=== PATIENT | female | born 1960 | race Caucasian/White ===

== ENCOUNTER → 2016-09-26 | Outpatient (CLI) | payer OTHER | LOC: M HL 10:46 | PROVIDERS: ATTEND Nurse Practitioner | DX: E11.8 Type 2 diabetes mellitus with unspecified complications (principal); K21.9 Gastro-esophageal reflux disease without esophagitis; N28.9 Disorder of kidney and ureter, unspecified; Z90.5 Acquired absence of kidney ==

== ENCOUNTER → 2016-10-09 | Outpatient (CLI) | payer OTHER | LOC: M RAD 14:19 | PROVIDERS: ATTEND Nurse Practitioner | DX: E27.9 Disorder of adrenal gland, unspecified (principal); Z90.5 Acquired absence of kidney ==

== ENCOUNTER → 2016-11-09 | Outpatient (REF) | payer OTHER ==
[2016-11-09 17:42] LABS: ALBUMIN 3.3 GM/DL (3.2-5.2); ALBUMIN/GLOBULIN RATIO 0.89 (1.00-1.93); BILIRUBIN,TOTAL 0.5 MG/DL (0.2-1.0); CALCIUM LEVEL 8.8 MG/DL (8.5-10.1); CREATININE FOR GFR 1.49 MG/DL (0.55-1.02); GLOMERULAR FILTRATION RATE 38.8 (>51); POTASSIUM SERUM 4.8 MEQ/L (3.5-5.1)
== END ==
LOC: M SFHCCLAY 11:13
PROVIDERS: ATTEND Nurse Practitioner
DX: E11.8 Type 2 diabetes mellitus with unspecified complications (principal)

== ENCOUNTER → 2016-12-26 | Outpatient (CLI) | payer OTHER ==
[~2016-12-26] MED LIST: CONRAY-43 43% 50ML VIAL (Q9960) As Ordered ONE; ISOVUE-M 300 61% 15ML VIAL (Q9967) As Ordered ONE; LIDOCAINE 1% MDV 20ML VIAL As Ordered ONE; TRIAMCINOLONE ACETONIDE SUSP 40 MG/ML VIAL (J3301) As Ordered ONE
--- NOTE | 2016-12-26 14:30 | REP ---
INTRA-ARTICULAR KENALOG AND LIDOCAINE INJECTION RIGHT HIP: HISTORY: Right hip pain. PROCEDURE: The patient was interviewed and informed consent was obtained. The patient was placed supine on the fluoroscopy table and the right groin pulse was palpated and marked. The patient safety time-out was articulated and agreed to. Using fluoroscopic guidance, aseptic precautions and 1% lidocaine for local anesthetic, a 22 gauge 3-1/2-inch needle was advanced into the right hip articulation without technical difficulty. Intra-articular needle position was confirmed by the injection of 0.5 mL of Conray 43. This is followed by the injection of 9 mL of 1% lidocaine mixed with 1 mL of Kenalog, 40 mg. The patient tolerated the injection procedure well. 50 seconds of fluoroscopy time was utilized. IMPRESSION: Intra-articular Kenalog and lidocaine injection right hip. Signed by Ralph Sears MD 12/26/2016 08:57 P
== END ==
LOC: M RADPRO 09:43
PROVIDERS: ATTEND Physician Assistant
DX: M25.551 Pain in right hip (principal)

== ENCOUNTER 2017-01-31 15:24 | Emergency (ER) | payer OTHER ==
[~2017-01-31] VITALS: Ht 170.2 cm; Wt 112.9 kg
[2017-01-31] MEDS ORDERED: JANU100T PO (15:40)
[2017-01-31] MEDS ORDERED: LISI20TA3 PO (15:40)
[2017-01-31] MEDS ORDERED: PRIL20CA9 PO (15:40)
[2017-01-31] MEDS ORDERED: ASPI81TA85 PO (15:40)
[2017-01-31] MEDS ORDERED: LEVO100T5 PO (15:40)
[2017-01-31] MEDS ORDERED: ASPIRIN 81 MG CHEW TABLET PO ONE (16:15)
[2017-01-31] MEDS ORDERED: NITROGLYCERIN 0.4 MG SUBL TABLET SL PRN (16:15)
[2017-01-31 16:26] LABS: BASO % 0.4 % (0.0-1.0); EOS # 0.1 K/mm3 (0.0-0.50); EOS % 1.2 % (0.0-3.0); LARGE UNSTAINED CELL # 0.2 K/mm3 (0.0-0.4); LARGE UNSTAINED CELL % 1.8 % (0.0-4.0); LYMPH # 2.6 K/mm3 (1.5-4.5); MEAN CORPUSCULAR HEMOGLOBIN 32.9 pg (27.0-33.0); MEAN CORPUSCULAR HGB CONC 33.1 g/dl (32.0-36.5); MEAN CORPUSCULAR VOLUME 99.3 fl (80.0-96.0); MONO # 0.6 K/mm3 (0.0-0.8); MONO % 6.1 % (0.0-5.0); NEUTROPHILS # 6.7 K/mm3 (1.8-7.7); NEUTROPHILS % 65.4 % (36.0-66.0); PLATELET COUNT, AUTOMATED 303 k/mm3 (150-450); RED CELL DISTRIBUTION WIDTH 12.5 % (11.5-14.5); WHITE BLOOD COUNT 10.2 K/mm3 (4.0-10.0)
[2017-01-31 16:39] LABS: ALBUMIN 3.3 GM/DL (3.2-5.2); ALBUMIN/GLOBULIN RATIO 0.89 (1.00-1.93); ALKALINE PHOSPHATASE 116 U/L (45-117); ALT/SGPT 14 U/L (12-78); ANION GAP 7 MEQ/L (8-16); AST/SGOT 6 U/L (15-37); BILIRUBIN,DIRECT < 0.1 MG/DL (0.0-0.2); BILIRUBIN,TOTAL 0.3 MG/DL (0.2-1.0); BLOOD UREA NITROGEN 31 MG/DL (7-18); CALCIUM LEVEL 8.2 MG/DL (8.5-10.1); CARBON DIOXIDE LEVEL 24 MEQ/L (21-32); CHLORIDE LEVEL 108 MEQ/L (98-107); CREATININE FOR GFR 1.47 MG/DL (0.55-1.02); FREE T4 1.35 NG/DL (0.76-1.46); GLOMERULAR FILTRATION RATE 39.3 (>51); GLUCOSE, FASTING 100 MG/DL (70-105); POTASSIUM SERUM 4.5 MEQ/L (3.5-5.1); SODIUM LEVEL 139 MEQ/L (136-145)
--- NOTE | 2017-01-31 18:08 | REP ---
CHEST, TWO VIEWS: REASON: Chest pain. COMPARISON: 09/09/2016. FINDINGS: The superior mediastinal structures are midline. The cardiac silhouette is unremarkable in size, shape, and position. The diaphragmatic surfaces of the lungs are regular, and the costophrenic angles are clear. The pulmonary silver are clear. The imaged osseous structures are intact. No significant change from the prior exam. IMPRESSION: There is no acute cardiopulmonary disease. Signed by Donny Gillette DO 02/01/2017 11:58 A
[2017-01-31] MEDS ORDERED: GI COCKTAIL 50ML BTL(HYOSCYAMINE/MAALOX/LIDOCAINE VISCOUS)(1:3:1) PO ONE (19:30)
[2017-01-31] MEDS ORDERED: ACETAMINOPHEN 325 MG TAB PO ONE (20:30)
[2017-01-31 23:21] VITALS: BP 147/65
--- NOTE | 2017-02-01 09:35 | ECGEPIP ---
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
--- NOTE | 2017-02-01 09:42 | ECGEPIP ---
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
== END 2017-01-31 23:25 | disposition home or self-care (01) ==
LOC: M ED 17:12
DX: N28.9 Disorder of kidney and ureter, unspecified (principal); R94.31 Abnormal electrocardiogram [ECG] [EKG]; I10 Essential (primary) hypertension; E11.9 Type 2 diabetes mellitus without complications; E03.9 Hypothyroidism, unspecified; F17.210 Nicotine dependence, cigarettes, uncomplicated; M16.0 Bilateral primary osteoarthritis of hip; Z88.5 Allergy status to narcotic agent; Z79.899 Other long term (current) drug therapy; Z79.82 Long term (current) use of aspirin; Z90.6 Acquired absence of other parts of urinary tract

== ENCOUNTER → 2017-05-21 | Outpatient (REF) | payer OTHER ==
[~2017-05-21] MED LIST changes: +ASPI81TA85 PO; -CONRAY-43 43% 50ML VIAL (Q9960) As Ordered ONE; -ISOVUE-M 300 61% 15ML VIAL (Q9967) As Ordered ONE; +JANU100T PO; +LEVO100T5 PO; -LIDOCAINE 1% MDV 20ML VIAL As Ordered ONE; +LISI20TA3 PO; +PRIL20CA9 PO; -TRIAMCINOLONE ACETONIDE SUSP 40 MG/ML VIAL (J3301) As Ordered ONE
[2017-05-21 12:50] LABS: ALBUMIN 3.4 GM/DL (3.2-5.2); ALBUMIN/GLOBULIN RATIO 0.94 (1.00-1.93); BILIRUBIN,TOTAL 0.4 MG/DL (0.2-1.0); CALCIUM LEVEL 8.8 MG/DL (8.5-10.1); CREATININE FOR GFR 1.74 MG/DL (0.55-1.02); GLOMERULAR FILTRATION RATE 32.3 (>51); POTASSIUM SERUM 5.1 MEQ/L (3.5-5.1)
== END ==
LOC: M SFHCCLAY 09:50
PROVIDERS: ATTEND Nurse Practitioner
DX: E11.8 Type 2 diabetes mellitus with unspecified complications (principal)

== ENCOUNTER → 2017-05-30 | Outpatient (REF) | payer OTHER | LOC: M SFHCCLAY 13:35 | PROVIDERS: ATTEND Nurse Practitioner | DX: N30.00 Acute cystitis without hematuria (principal) ==

== ENCOUNTER → 2017-07-17 | Outpatient (REF) | payer OTHER | LOC: M SFHCCLAY 10:41 | PROVIDERS: ATTEND Nurse Practitioner | DX: N30.90 Cystitis, unspecified without hematuria (principal); R05 Cough ==

== ENCOUNTER → 2017-08-28 | Outpatient (CLI) | payer OTHER ==
[~2017-08-28] MED LIST changes: +ATOR1TAB21 PO; +BUPR75TA5 PO; +CLIN150C14 PO; +VITA100066 PO
[2017-08-28 13:07] LABS: ALBUMIN 3.3 GM/DL (3.2-5.2); ALBUMIN/GLOBULIN RATIO 0.8 (1.00-1.93); BILIRUBIN,TOTAL 0.8 MG/DL (0.2-1.0); CALCIUM LEVEL 8.8 MG/DL (8.5-10.1); CREATININE FOR GFR 1.77 MG/DL (0.55-1.02); GLOMERULAR FILTRATION RATE 31.7 (>51); POTASSIUM SERUM 4.5 MEQ/L (3.5-5.1); TOTAL PROTEIN 7.4 GM/DL (6.4-8.2)
== END ==
LOC: M LAB 11:59
PROVIDERS: ATTEND Nurse Practitioner
DX: N30.00 Acute cystitis without hematuria (principal); E78.6 Lipoprotein deficiency; E03.9 Hypothyroidism, unspecified

== ENCOUNTER 2017-08-31 13:10 | Emergency (ER) | payer OTHER ==
[~2017-08-31] VITALS: Ht 170.2 cm; Wt 109.1 kg
[2017-08-31 13:10] VITALS: BP 123/80
[~2017-08-31 13:10] MED LIST changes: -ATOR1TAB21 PO; -BUPR75TA5 PO; -CLIN150C14 PO; -VITA100066 PO
[2017-08-31] MEDS ORDERED: ATOR1TAB21 PO (13:22)
[2017-08-31] MEDS ORDERED: VITA100066 PO (13:22)
[2017-08-31] MEDS ORDERED: BUPR75TA5 PO (13:22)
[2017-08-31] MEDS ORDERED: CLIN150C14 PO (14:42)
[2017-08-31] MEDS ORDERED: IBUPROFEN 800 MG TAB PO ONE (14:45)
[2017-08-31] MEDS ORDERED: CLINDAMYCIN 150 MG CAP PO ONE (14:45)
== END 2017-08-31 14:58 | disposition home or self-care (01) ==
LOC: M ED 13:10
DX: K08.89 Other specified disorders of teeth and supporting structures (principal); K04.7 Periapical abscess without sinus; S02.5XXA Fracture of tooth (traumatic), initial encounter for closed fracture; X58.XXXA Exposure to other specified factors, initial encounter; Y92.9 Unspecified place or not applicable; Y93.9 Activity, unspecified; Y99.9 Unspecified external cause status; F17.200 Nicotine dependence, unspecified, uncomplicated; E78.00 Pure hypercholesterolemia, unspecified; I10 Essential (primary) hypertension; K21.9 Gastro-esophageal reflux disease without esophagitis; E11.9 Type 2 diabetes mellitus without complications; E03.9 Hypothyroidism, unspecified; Z79.82 Long term (current) use of aspirin; Z79.899 Other long term (current) drug therapy; Z88.5 Allergy status to narcotic agent

== ENCOUNTER 2017-09-21 21:19 | Emergency (ER) | payer OTHER ==
[2017-09-22] MEDS: AMOXICILLIN 500 MG CAP PO (01:15)
== END 2017-09-22 02:00 | disposition home or self-care (01) ==
LOC: M ED 09-22 02:00
DX: H66.93 Otitis media, unspecified, bilateral (principal); J06.9 Acute upper respiratory infection, unspecified; I25.10 Atherosclerotic heart disease of native coronary artery without angina pectoris; E11.9 Type 2 diabetes mellitus without complications; I10 Essential (primary) hypertension; E03.9 Hypothyroidism, unspecified; K21.9 Gastro-esophageal reflux disease without esophagitis; N18.9 Chronic kidney disease, unspecified; F17.200 Nicotine dependence, unspecified, uncomplicated; Z79.82 Long term (current) use of aspirin; Z79.899 Other long term (current) drug therapy; Z88.5 Allergy status to narcotic agent
CPT/HCPCS: 99283

== ENCOUNTER → 2017-09-24 | Outpatient (REF) | payer OTHER | LOC: M LAB REF 17:35 | DX: E03.9 Hypothyroidism, unspecified (principal) | CPT/HCPCS: 84443 ==

== ENCOUNTER → 2017-11-04 | Day surgery (SDC) | payer OTHER ==
[~2017-11-04] MED LIST changes: -ASPI81TA85 PO; -JANU100T PO; -LEVO100T5 PO; +LIDOCAINE 2% INJ 100 MG/5 ML SDV (FOR ANES.) As Ordered; -LISI20TA3 PO; -PRIL20CA9 PO; +PROPOFOL 200 MG/20 ML VIAL As Ordered
[2017-11-04] MEDS: NS 1,000 ML IV (07:25)
== END | disposition home or self-care (01) ==
LOC: M OPP 07:03
DX: Z12.11 Encounter for screening for malignant neoplasm of colon (principal); D12.3 Benign neoplasm of transverse colon; D12.5 Benign neoplasm of sigmoid colon; K62.1 Rectal polyp; K64.8 Other hemorrhoids; K63.89 Other specified diseases of intestine; D17.5 Benign lipomatous neoplasm of intra-abdominal organs; K56.690 Other partial intestinal obstruction; K64.4 Residual hemorrhoidal skin tags; I12.9 Hypertensive chronic kidney disease with stage 1 through stage 4 chronic kidney disease, or unspecified chronic kidney disease; E78.5 Hyperlipidemia, unspecified; E11.9 Type 2 diabetes mellitus without complications; E03.9 Hypothyroidism, unspecified; R12 Heartburn; K21.9 Gastro-esophageal reflux disease without esophagitis; M19.90 Unspecified osteoarthritis, unspecified site; G62.9 Polyneuropathy, unspecified; Z78.0 Asymptomatic menopausal state; N18.4 Chronic kidney disease, stage 4 (severe); Z85.528 Personal history of other malignant neoplasm of kidney; Z90.5 Acquired absence of kidney; F17.210 Nicotine dependence, cigarettes, uncomplicated; Z88.5 Allergy status to narcotic agent; Z79.899 Other long term (current) drug therapy; Z79.82 Long term (current) use of aspirin; Z79.84 Long term (current) use of oral hypoglycemic drugs; Z80.8 Family history of malignant neoplasm of other organs or systems
CPT/HCPCS: 45385

== ENCOUNTER → 2017-11-05 | Outpatient (CLI) | payer OTHER ==
[2017-11-05 10:22] LABS: BASO % 0.4 % (0.0-1.0); EOS # 0.1 10^3/uL (0.0-0.50); EOS % 0.9 % (0.0-3.0); HEMATOCRIT 39.3 % (36.0-47.0); IMMATURE GRANULOCYTE % 0.4 % (0-3.0); LYMPH # 2.3 10^3/uL (1.5-4.5); LYMPH % 21.2 % (24.0-44.0); MEAN CORPUSCULAR HEMOGLOBIN 31.9 pg (27.0-33.0); MEAN CORPUSCULAR HGB CONC 33.1 g/dl (32.0-36.5); MEAN CORPUSCULAR VOLUME 96.3 fl (80.0-96.0); MONO # 0.8 10^3/uL (0.0-0.8); MONO % 7.8 % (0.0-5.0); NEUTROPHILS # 7.5 10^3/uL (1.8-7.7); NEUTROPHILS % 69.3 % (36.0-66.0); PLATELET COUNT, AUTOMATED 264 10^3/uL (150-450); RED BLOOD COUNT 4.08 10^6/uL (4.00-5.40); RED CELL DISTRIBUTION WIDTH 12.4 % (11.5-14.5); WHITE BLOOD COUNT 10.8 10^3/uL (4.0-10.0)
[2017-11-05 10:32] LABS: INR 1.01; PROTHROMBIN TIME 13.4 SECONDS (12.4-14.5)
[2017-11-05 10:33] LABS: PARTIAL THROMBOPLASTIN TIME 28.7 SECONDS (26.8-37.9)
== END ==
LOC: M LAB 09:55
DX: K62.5 Hemorrhage of anus and rectum (principal)
CPT/HCPCS: 85610

== ENCOUNTER → 2017-11-06 | Outpatient (CLI) | payer OTHER ==
[2017-11-06 09:16] LABS: HEMATOCRIT 39.3 % (36.0-47.0); HEMOGLOBIN 12.9 g/dl (12.0-16.0); MEAN CORPUSCULAR HEMOGLOBIN 32.1 pg (27.0-33.0); MEAN CORPUSCULAR HGB CONC 32.8 g/dl (32.0-36.5); MEAN CORPUSCULAR VOLUME 97.8 fl (80.0-96.0); PLATELET COUNT, AUTOMATED 262 10^3/uL (150-450); RED BLOOD COUNT 4.02 10^6/uL (4.00-5.40); RED CELL DISTRIBUTION WIDTH 12.5 % (11.5-14.5); WHITE BLOOD COUNT 10.3 10^3/uL (4.0-10.0)
== END ==
LOC: M LAB 08:46
DX: K62.5 Hemorrhage of anus and rectum (principal)
CPT/HCPCS: 85027

== ENCOUNTER 2017-11-28 22:01 | Emergency (ER) | payer OTHER ==
[2017-11-28] MEDS: NS 1,000 ML IV (22:57)
[2017-11-28] MEDS: GI COCKTAIL 50ML BTL(HYOSCYAMINE/MAALOX/LIDOCAINE VISCOUS)(1:3:1) PO (23:15)
[2017-11-28] MEDS: ASPIRIN 81 MG CHEW TABLET PO (23:15)
[2017-11-28 23:25] LABS: BASO % 0.4 % (0.0-1.0); EOS # 0.2 10^3/uL (0.0-0.50); EOS % 1.7 % (0.0-3.0); HEMATOCRIT 40.5 % (36.0-47.0); HEMOGLOBIN 13.2 g/dl (12.0-16.0); IMMATURE GRANULOCYTE % 0.4 % (0-3.0); LYMPH # 2.8 10^3/uL (1.5-4.5); LYMPH % 25.9 % (24.0-44.0); MEAN CORPUSCULAR HEMOGLOBIN 32.3 pg (27.0-33.0); MEAN CORPUSCULAR HGB CONC 32.6 g/dl (32.0-36.5); MONO # 0.8 10^3/uL (0.0-0.8); MONO % 7.4 % (0.0-5.0); NEUTROPHILS # 6.9 10^3/uL (1.8-7.7); NEUTROPHILS % 64.2 % (36.0-66.0); PLATELET COUNT, AUTOMATED 300 10^3/uL (150-450); RED BLOOD COUNT 4.09 10^6/uL (4.00-5.40); RED CELL DISTRIBUTION WIDTH 12.4 % (11.5-14.5); WHITE BLOOD COUNT 10.7 10^3/uL (4.0-10.0)
[2017-11-28 23:35] LABS: INR 0.96; PROTHROMBIN TIME 12.8 SECONDS (12.4-14.5)
[2017-11-28 23:41] LABS: ALBUMIN 3.4 GM/DL (3.2-5.2); ALBUMIN/GLOBULIN RATIO 0.83 (1.00-1.93); ALKALINE PHOSPHATASE 116 U/L (45-117); ALT/SGPT 23 U/L (12-78); ANION GAP 8 MEQ/L (8-16); AST/SGOT 14 U/L (7-37); BILIRUBIN,DIRECT < 0.1 MG/DL (0.0-0.2); BILIRUBIN,TOTAL 0.3 MG/DL (0.2-1.0); BLOOD UREA NITROGEN 36 MG/DL (7-18); CALCIUM LEVEL 8.5 MG/DL (8.5-10.1); CARBON DIOXIDE LEVEL 24 MEQ/L (21-32); CHLORIDE LEVEL 108 MEQ/L (98-107); CK-MB VALUE MASS 1.2 NG/ML (0.0-3.6); CPK CREATINE PHOSPHOKINASE 67 U/L (26-192); CREATININE FOR GFR 1.71 MG/DL (0.55-1.30); GLUCOSE, FASTING 245 MG/DL (70-100); LIPASE 251 U/L (73-393); MB/CK RELATIVE INDEX 1.79 (< OR =4); SODIUM LEVEL 140 MEQ/L (136-145); TOTAL PROTEIN 7.5 GM/DL (6.4-8.2); TROPONIN I < 0.02 NG/ML (< 0.10)
[2017-11-29] MEDS: NITROGLYCERIN 0.4 MG SUBL TABLET SL (00:15)
[2017-11-29] MEDS ORDERED: NITROGLYCERIN 0.4 MG SUBL TABLET SL (02:15)
[2017-11-29 03:50] LABS: CPK CREATINE PHOSPHOKINASE 51 U/L (26-192); TROPONIN I < 0.02 NG/ML (< 0.10)
[2017-11-29 03:51] LABS: CK-MB VALUE MASS 1.2 NG/ML (0.0-3.6); MB/CK RELATIVE INDEX 2.35 (< OR =4)
== END 2017-11-29 04:32 | disposition home or self-care (01) ==
LOC: M ED 11-29 04:32
DX: R07.9 Chest pain, unspecified (principal); E11.9 Type 2 diabetes mellitus without complications; I10 Essential (primary) hypertension; E78.5 Hyperlipidemia, unspecified; F17.200 Nicotine dependence, unspecified, uncomplicated; Z82.49 Family history of ischemic heart disease and other diseases of the circulatory system; Z79.82 Long term (current) use of aspirin; Z79.899 Other long term (current) drug therapy; Z88.5 Allergy status to narcotic agent
CPT/HCPCS: 71045

== ENCOUNTER 2017-12-07 13:38 | Emergency (ER) | payer OTHER ==
[2017-12-07] MEDS: ACETAMINOPHEN TAB 650MG DOSE (2X325MG) PO (15:34)
[2017-12-07 15:36] LABS: BASO # 0.1 10^3/uL (0.0-0.2); BASO % 0.5 % (0.0-1.0); EOS # 0.1 10^3/uL (0.0-0.50); EOS % 1.2 % (0.0-3.0); HEMATOCRIT 41.2 % (36.0-47.0); HEMOGLOBIN 13.5 g/dl (12.0-16.0); IMMATURE GRANULOCYTE % 0.5 % (0-3.0); LYMPH # 2.7 10^3/uL (1.5-4.5); LYMPH % 24.6 % (24.0-44.0); MEAN CORPUSCULAR HEMOGLOBIN 31.9 pg (27.0-33.0); MEAN CORPUSCULAR HGB CONC 32.8 g/dl (32.0-36.5); MEAN CORPUSCULAR VOLUME 97.4 fl (80.0-96.0); MONO # 0.8 10^3/uL (0.0-0.8); MONO % 6.9 % (0.0-5.0); NEUTROPHILS # 7.2 10^3/uL (1.8-7.7); NEUTROPHILS % 66.3 % (36.0-66.0); PLATELET COUNT, AUTOMATED 266 10^3/uL (150-450); RED BLOOD COUNT 4.23 10^6/uL (4.00-5.40); RED CELL DISTRIBUTION WIDTH 12.5 % (11.5-14.5); WHITE BLOOD COUNT 10.8 10^3/uL (4.0-10.0)
[2017-12-07 15:43] LABS: KETONE, URINE AUTO RFX NEGATIVE (NEGATIVE); LEUKOCYTE ESTERASE UR AUTO RFX NEGATIVE (NEGATIVE); MUCUS, URINE RFX SMALL (NEGATIVE); NITRITE, URINE AUTO RFX NEGATIVE (NEGATIVE); RBC, URINE AUTO RFX 51 /HPF (0-3); SPECIFIC GRAVITY UR AUTO RFX 1.013 (1.002-1.035); SQUAM EPITHELIAL CELL UR AURFX 2 /HPF (0-6); WBC, URINE AUTO RFX 2 /HPF (0-3)
[2017-12-07 15:48] LABS: INR 0.99; PROTHROMBIN TIME 13.2 SECONDS (12.4-14.5)
[2017-12-07 15:49] LABS: PARTIAL THROMBOPLASTIN TIME 26.7 SECONDS (26.8-37.9)
[2017-12-07 15:58] LABS: ANION GAP 7 MEQ/L (8-16); BLOOD UREA NITROGEN 23 MG/DL (7-18); CALCIUM LEVEL 8.5 MG/DL (8.5-10.1); CARBON DIOXIDE LEVEL 28 MEQ/L (21-32); CHLORIDE LEVEL 107 MEQ/L (98-107); CREATININE FOR GFR 1.43 MG/DL (0.55-1.30); GLOMERULAR FILTRATION RATE 40.6 (>51); GLUCOSE, FASTING 155 MG/DL (70-100); POTASSIUM SERUM 4.2 MEQ/L (3.5-5.1); SODIUM LEVEL 142 MEQ/L (136-145)
== END 2017-12-07 18:30 | disposition home or self-care (01) ==
LOC: M ED 13:38
DX: N85.00 Endometrial hyperplasia, unspecified (principal); N95.0 Postmenopausal bleeding; E11.9 Type 2 diabetes mellitus without complications; I12.9 Hypertensive chronic kidney disease with stage 1 through stage 4 chronic kidney disease, or unspecified chronic kidney disease; E78.00 Pure hypercholesterolemia, unspecified; N18.4 Chronic kidney disease, stage 4 (severe); F17.210 Nicotine dependence, cigarettes, uncomplicated; Z88.5 Allergy status to narcotic agent; Z79.82 Long term (current) use of aspirin; Z79.899 Other long term (current) drug therapy; Z79.890 Hormone replacement therapy
CPT/HCPCS: 76856

== ENCOUNTER → 2017-12-12 | Outpatient (CLI) | payer OTHER ==
[2017-12-12 13:57] LABS: FREE T4 1.42 NG/DL (0.76-1.46); THYROID STIMULATING HORMONE 0.751 uIU/ML (0.358-3.740)
== END ==
LOC: M LAB 11:34
DX: E03.9 Hypothyroidism, unspecified (principal)
CPT/HCPCS: 84443

== ENCOUNTER → 2017-12-13 | Outpatient (CLI) | payer OTHER ==
[2017-12-13 09:23] LABS: HEMATOCRIT 41.8 % (36.0-47.0); HEMOGLOBIN 13.6 g/dl (12.0-16.0); MEAN CORPUSCULAR HEMOGLOBIN 31.8 pg (27.0-33.0); MEAN CORPUSCULAR HGB CONC 32.5 g/dl (32.0-36.5); MEAN CORPUSCULAR VOLUME 97.7 fl (80.0-96.0); PLATELET COUNT, AUTOMATED 278 10^3/uL (150-450); RED BLOOD COUNT 4.28 10^6/uL (4.00-5.40); RED CELL DISTRIBUTION WIDTH 12.5 % (11.5-14.5); WHITE BLOOD COUNT 9.5 10^3/uL (4.0-10.0)
[2017-12-13 10:05] LABS: ESTIMATED AVERAGE GLUCOSE 217 MG/DL (60-110); HEMOGLOBIN A1c 9.2 %
== END ==
LOC: M LAB 08:15
DX: E11.618 Type 2 diabetes mellitus with other diabetic arthropathy (principal)
CPT/HCPCS: 83036

== ENCOUNTER → 2018-01-03 | Outpatient (CLI) | payer OTHER ==
[2018-01-03 15:15] LABS: ALBUMIN 3.4 GM/DL (3.2-5.2); ALBUMIN/GLOBULIN RATIO 0.89 (1.00-1.93); ALKALINE PHOSPHATASE 122 U/L (45-117); ALT/SGPT 18 U/L (12-78); ANION GAP 6 MEQ/L (8-16); AST/SGOT 11 U/L (7-37); BILIRUBIN,TOTAL 0.6 MG/DL (0.2-1.0); BLOOD UREA NITROGEN 30 MG/DL (7-18); CALCIUM LEVEL 8.7 MG/DL (8.5-10.1); CARBON DIOXIDE LEVEL 27 MEQ/L (21-32); CHLORIDE LEVEL 108 MEQ/L (98-107); CHOLESTEROL LEVEL 134 MG/DL (<200); CHOLESTEROL RISK RATIO 3.722 (<5); CREATININE FOR GFR 1.51 MG/DL (0.55-1.30); GLOMERULAR FILTRATION RATE 38.1 (>51); GLUCOSE, FASTING 218 MG/DL (70-100); HDL CHOLESTEROL 36 MG/DL (>40); LDL CHOLESTEROL 34.4 MG/DL (<100); NON-HDL-C 98 MG/DL; POTASSIUM SERUM 4.8 MEQ/L (3.5-5.1); SODIUM LEVEL 141 MEQ/L (136-145); TOTAL PROTEIN 7.2 GM/DL (6.4-8.2); TRIGLYCERIDES LEVEL 318 MG/DL (<150)
[2018-01-03 16:13] LABS: ESTIMATED AVERAGE GLUCOSE 220 MG/DL (60-110); HEMOGLOBIN A1c 9.3 %
== END ==
LOC: M LAB 14:19
DX: E11.8 Type 2 diabetes mellitus with unspecified complications (principal)
CPT/HCPCS: 80053

== ENCOUNTER → 2018-02-24 | Outpatient (CLI) | payer OTHER | LOC: M RAD 09:28 | DX: Z12.31 Encounter for screening mammogram for malignant neoplasm of breast (principal) | CPT/HCPCS: 77067 ==

== ENCOUNTER 2018-03-17 10:34 | Outpatient (RCR) | payer OTHER | END 2018-03-22 | LOC: M PT 10:34 | DX: Z51.89 Encounter for other specified aftercare (principal); M25.551 Pain in right hip; M25.552 Pain in left hip | CPT/HCPCS: 97010 ==

== ENCOUNTER → 2018-03-20 | Outpatient (REF) | payer OTHER ==
[2018-03-21 11:35] LABS: BASO # 0.1 10^3/uL (0.0-0.2); BASO % 0.6 % (0.0-1.0); EOS # 0.2 10^3/uL (0.0-0.50); EOS % 1.5 % (0.0-3.0); HEMATOCRIT 41.1 % (36.0-47.0); HEMOGLOBIN 13.3 g/dl (12.0-15.5); IMMATURE GRANULOCYTE % 0.5 % (0-3.0); LYMPH # 2.9 10^3/uL (1.5-4.5); LYMPH % 26.6 % (24.0-44.0); MEAN CORPUSCULAR HEMOGLOBIN 31.8 pg (27.0-33.0); MEAN CORPUSCULAR HGB CONC 32.4 g/dl (32.0-36.5); MEAN CORPUSCULAR VOLUME 98.3 fl (80.0-96.0); MONO # 0.8 10^3/uL (0.0-0.8); MONO % 6.8 % (0.0-5.0); NEUTROPHILS # 7.1 10^3/uL (1.8-7.7); PLATELET COUNT, AUTOMATED 383 10^3/uL (150-450); RED BLOOD COUNT 4.18 10^6/uL (4.00-5.40); RED CELL DISTRIBUTION WIDTH 12.2 % (11.5-14.5)
[2018-03-21 11:48] LABS: ANION GAP 6 MEQ/L (8-16); BLOOD UREA NITROGEN 30 MG/DL (7-18); CALCIUM LEVEL 8.9 MG/DL (8.5-10.1); CARBON DIOXIDE LEVEL 26 MEQ/L (21-32); CHLORIDE LEVEL 110 MEQ/L (98-107); CREATININE FOR GFR 1.62 MG/DL (0.55-1.30); GLUCOSE, FASTING 128 MG/DL (70-100); POTASSIUM SERUM 5.1 MEQ/L (3.5-5.1); SODIUM LEVEL 142 MEQ/L (136-145)
[2018-03-21 12:39] LABS: ESTIMATED AVERAGE GLUCOSE 197 MG/DL (60-110); HEMOGLOBIN A1c 8.5 %
== END ==
LOC: M SFHCCLAY 14:36
DX: E11.8 Type 2 diabetes mellitus with unspecified complications (principal); I12.9 Hypertensive chronic kidney disease with stage 1 through stage 4 chronic kidney disease, or unspecified chronic kidney disease

== ENCOUNTER 2018-03-24 08:38 | Outpatient (RCR) | payer OTHER | END 2018-04-22 | LOC: M PT 08:38 | DX: Z51.89 Encounter for other specified aftercare (principal); M25.551 Pain in right hip; M25.552 Pain in left hip ==

== ENCOUNTER 2018-04-09 07:07 | Day surgery (SDC) | payer OTHER ==
[2018-04-09 07:44] LABS: HEMATOCRIT 39.2 % (36.0-47.0); MEAN CORPUSCULAR HEMOGLOBIN 32.7 pg (27.0-33.0); MEAN CORPUSCULAR HGB CONC 33.2 g/dl (32.0-36.5); MEAN CORPUSCULAR VOLUME 98.5 fl (80.0-96.0); PLATELET COUNT, AUTOMATED 258 10^3/uL (150-450); RED BLOOD COUNT 3.98 10^6/uL (4.00-5.40); RED CELL DISTRIBUTION WIDTH 13.2 % (11.5-14.5)
[2018-04-09] MEDS ORDERED: fentaNYL 100 MCG/2 ML INJECTION (J3010) As Ordered ×2 (07:54→09:31)
[2018-04-09] MEDS ORDERED: MIDAZOLAM INJ 2 MG/2 ML VIAL (J2250) As Ordered (07:54)
[2018-04-09] MEDS ORDERED: LIDOCAINE 2% INJ 100 MG/5 ML SDV (FOR ANES.) As Ordered (07:56)
[2018-04-09] MEDS ORDERED: PROPOFOL 200 MG/20 ML VIAL As Ordered (07:56)
[2018-04-09] MEDS ORDERED: ONDANSETRON 4MG/2ML VIAL (J2405) As Ordered (07:56)
[2018-04-09] MEDS ORDERED: dexameTHASONE 4 MG/ML 1ML VIAL (J1100) As Ordered (07:56)
[2018-04-09] MEDS ORDERED: LR 1,000 ML IV ×3 (08:00→09:45)
[2018-04-09 08:10] LABS: BEDSIDE GLUCOSE 138 MG/DL (70-105)
[2018-04-09] MEDS ORDERED: KETOROLAC 60 MG/2 ML VIAL (J1885) As Ordered (08:59)
[2018-04-09] MEDS ORDERED: ONDANSETRON 4MG/2ML VIAL (J2405) IV (09:45)
[2018-04-09] MEDS ORDERED: fentaNYL 100 MCG/2 ML INJECTION (J3010) IV (09:45)
[2018-04-09] MEDS: NORCO, ANEXSIA 5/325MG TABLET (HYDROcodone/ACETAMINOPHEN) PO (09:52)
[2018-04-09] MEDS: ACETAMINOPHEN 500 MG TAB PO (10:28)
== END 2018-04-09 12:34 | disposition home or self-care (01) ==
LOC: M SDC 07:07
DX: N95.0 Postmenopausal bleeding (principal); N84.0 Polyp of corpus uteri; E11.9 Type 2 diabetes mellitus without complications; I12.9 Hypertensive chronic kidney disease with stage 1 through stage 4 chronic kidney disease, or unspecified chronic kidney disease; E78.5 Hyperlipidemia, unspecified; Z79.82 Long term (current) use of aspirin; N18.4 Chronic kidney disease, stage 4 (severe); E03.9 Hypothyroidism, unspecified; Z85.528 Personal history of other malignant neoplasm of kidney; F17.210 Nicotine dependence, cigarettes, uncomplicated; K21.9 Gastro-esophageal reflux disease without esophagitis; Z79.899 Other long term (current) drug therapy
CPT/HCPCS: 58558

== ENCOUNTER 2018-06-19 11:39 | Emergency (ER) | payer OTHER ==
[2018-06-19 12:16] LABS: KETONE, URINE AUTO RFX NEGATIVE (NEGATIVE); LEUKOCYTE ESTERASE UR AUTO RFX NEGATIVE (NEGATIVE); MUCUS, URINE RFX SMALL (NEGATIVE); NITRITE, URINE AUTO RFX NEGATIVE (NEGATIVE); RBC, URINE AUTO RFX 1 /HPF (0-3); SPECIFIC GRAVITY UR AUTO RFX 1.018 (1.002-1.035); SQUAM EPITHELIAL CELL UR AURFX 4 /HPF (0-6); WBC, URINE AUTO RFX 0 /HPF (0-3)
== END 2018-06-19 16:38 | disposition home or self-care (01) ==
LOC: M ED 11:39
DX: D25.9 Leiomyoma of uterus, unspecified (principal); E11.9 Type 2 diabetes mellitus without complications; I12.9 Hypertensive chronic kidney disease with stage 1 through stage 4 chronic kidney disease, or unspecified chronic kidney disease; N18.4 Chronic kidney disease, stage 4 (severe); E78.5 Hyperlipidemia, unspecified; K21.9 Gastro-esophageal reflux disease without esophagitis; E03.9 Hypothyroidism, unspecified; Z79.82 Long term (current) use of aspirin; Z88.5 Allergy status to narcotic agent; F17.210 Nicotine dependence, cigarettes, uncomplicated
CPT/HCPCS: 76856

== ENCOUNTER → 2018-06-26 | Outpatient (CLI) | payer OTHER ==
[2018-06-26 11:21] LABS: BASO % 0.4 % (0.0-1.0); EOS # 0.2 10^3/uL (0.0-0.50); EOS % 1.9 % (0.0-3.0); HEMATOCRIT 41.3 % (36.0-47.0); HEMOGLOBIN 13.4 g/dl (12.0-15.5); IMMATURE GRANULOCYTE % 0.3 % (0-3.0); LYMPH # 2.7 10^3/uL (1.5-4.5); LYMPH % 28.7 % (24.0-44.0); MEAN CORPUSCULAR HGB CONC 32.4 g/dl (32.0-36.5); MEAN CORPUSCULAR VOLUME 98.6 fl (80.0-96.0); MONO # 0.7 10^3/uL (0.0-0.8); MONO % 7.9 % (0.0-5.0); NEUTROPHILS # 5.6 10^3/uL (1.8-7.7); NEUTROPHILS % 60.8 % (36.0-66.0); PLATELET COUNT, AUTOMATED 275 10^3/uL (150-450); RED BLOOD COUNT 4.19 10^6/uL (4.00-5.40); RED CELL DISTRIBUTION WIDTH 12.2 % (11.5-14.5); WHITE BLOOD COUNT 9.3 10^3/uL (4.0-10.0)
[2018-06-26 11:47] LABS: ALBUMIN 3.3 GM/DL (3.2-5.2); ALBUMIN/GLOBULIN RATIO 0.94 (1.00-1.93); ALKALINE PHOSPHATASE 108 U/L (45-117); ALT/SGPT 17 U/L (12-78); ANION GAP 7 MEQ/L (8-16); AST/SGOT 10 U/L (7-37); BILIRUBIN,TOTAL 0.5 MG/DL (0.2-1.0); BLOOD UREA NITROGEN 22 MG/DL (7-18); CALCIUM LEVEL 8.9 MG/DL (8.5-10.1); CARBON DIOXIDE LEVEL 28 MEQ/L (21-32); CHLORIDE LEVEL 106 MEQ/L (98-107); CHOLESTEROL LEVEL 129 MG/DL (<200); CHOLESTEROL RISK RATIO 3.794 (<5); CREATININE FOR GFR 1.43 MG/DL (0.55-1.30); FREE T4 1.17 NG/DL (0.76-1.46); GLOMERULAR FILTRATION RATE 40.4 (>51); GLUCOSE, FASTING 154 MG/DL (70-100); HDL CHOLESTEROL 34 MG/DL (>40); LDL CHOLESTEROL 44 MG/DL (<100); NON-HDL-C 95 MG/DL; POTASSIUM SERUM 4.9 MEQ/L (3.5-5.1); SODIUM LEVEL 141 MEQ/L (136-145); TOTAL PROTEIN 6.8 GM/DL (6.4-8.2); TRIGLYCERIDES LEVEL 257 MG/DL (<150)
[2018-06-26 11:58] LABS: ESTIMATED AVERAGE GLUCOSE 160 MG/DL (60-110); HEMOGLOBIN A1c 7.2 %
== END ==
LOC: M LAB 10:53
DX: E03.9 Hypothyroidism, unspecified (principal); E11.8 Type 2 diabetes mellitus with unspecified complications; I10 Essential (primary) hypertension
CPT/HCPCS: 84443

== ENCOUNTER → 2018-07-02 | Outpatient (CLI) | payer OTHER | LOC: M RAD 14:58 | DX: M17.11 Unilateral primary osteoarthritis, right knee (principal) | CPT/HCPCS: 73502 ==

== ENCOUNTER → 2018-12-29 | Outpatient (CLI) | payer OTHER, MEDICAID ==
[~2018-12-29] MED LIST changes: +AMOX500C PO; +ASPI81TA85 PO; +ATOR1TAB21 PO; +BASA100I; +BUPR75TA5 PO; +CLIN150C14 PO; +FLON1SPR; +GABA-1171 PO; +JANU100T PO; +LEVO100T5 PO; +LEVO75TA4 PO; -LIDOCAINE 2% INJ 100 MG/5 ML SDV (FOR ANES.) As Ordered; +LISI10TA2 PO; +LISI20TA3 PO; +PERI12LIQ; +PRIL20CA9 PO; -PROPOFOL 200 MG/20 ML VIAL As Ordered; +SITA50TAB PO; +VITA100066 PO
[2018-12-29 11:01] LABS: BASO # 0.1 10^3/uL (0.0-0.2); BASO % 0.5 % (0.0-1.0); EOS # 0.1 10^3/uL (0.0-0.50); EOS % 1.4 % (0.0-3.0); HEMATOCRIT 41.3 % (36.0-47.0); HEMOGLOBIN 13.4 g/dl (12.0-15.5); LYMPH # 2.1 10^3/uL (1.5-4.5); LYMPH % 21.3 % (24.0-44.0); MEAN CORPUSCULAR HEMOGLOBIN 31.6 pg (27.0-33.0); MEAN CORPUSCULAR HGB CONC 32.4 g/dl (32.0-36.5); MEAN CORPUSCULAR VOLUME 97.4 fl (80.0-96.0); MONO # 0.7 10^3/uL (0.0-0.8); MONO % 6.6 % (0.0-5.0); NEUTROPHILS # 6.8 10^3/uL (1.8-7.7); NEUTROPHILS % 69.5 % (36.0-66.0); PLATELET COUNT, AUTOMATED 274 10^3/uL (150-450); RED BLOOD COUNT 4.24 10^6/uL (4.00-5.40); WHITE BLOOD COUNT 9.8 10^3/uL (4.0-10.0)
[2018-12-29 11:21] LABS: HEMOGLOBIN A1c 9.4 %
[2018-12-29 11:31] LABS: ALBUMIN 3.2 GM/DL (3.2-5.2); BILIRUBIN,TOTAL 0.7 MG/DL (0.2-1.0); CALCIUM LEVEL 8.6 MG/DL (8.5-10.1); CHOLESTEROL RISK RATIO 3.514 (<5); CREATININE FOR GFR 1.36 MG/DL (0.55-1.30); FREE T4 1.39 NG/DL (0.76-1.46); GLOMERULAR FILTRATION RATE 42.8 (>51); POTASSIUM SERUM 4.7 MEQ/L (3.5-5.1); THYROID STIMULATING HORMONE 3.14 uIU/ML (0.358-3.740); TOTAL PROTEIN 6.5 GM/DL (6.4-8.2)
== END ==
LOC: M LAB 10:35
PROVIDERS: ATTEND Nurse Practitioner Family
DX: E03.9 Hypothyroidism, unspecified (principal)

== ENCOUNTER → 2019-01-02 | Outpatient (CLI) | payer MEDICAID, OTHER ==
--- NOTE | 2019-01-06 20:06 | SLEEPHOME ---
DATE OF PROCEDURE: 01/02/2019 Ordered by: ANDRZEJ Ball Diagnostic home sleep testing was performed due to concern for the obstructive sleep apnea syndrome in this patient with snoring and excessive somnolence who has comorbidities of hypertension, diabetes and acid reflux. For testing, nocturnal T3 respiratory monitoring device was used. Continuous record was made of pulse, oxygen saturation, airflow, chest and abdominal strain and body position. 10 hours and 59 minutes of data were reviewed, of these 6 hours and 52 minutes were marked as time in bed. During the interval marked time in bed, there was 39 respiratory events identified of 10 seconds in duration or greater for a respiratory event index of 5.7. The events were primarily obstructive, but 22 were central and mixed. Baseline pulse rate 81 beats per minute, pulse rate ranged from 52-100. Baseline saturation 94%. Saturations fell as low as 78%. Testing was performed in both the supine and nonsupine positions. Respiratory events were not exclusive to sleep posture. IMPRESSION Abnormal home sleep testing with repetitive respiratory events and oxygen desaturations to 78% with a respiratory event index of 5.7 is consistent with the obstructive sleep apnea syndrome. RECOMMENDATIONS The patient should be encouraged to undergo formal sleep evaluation with in laboratory pressure titration. Given the frequency of central and mixed events, a bilevel device and backup rate may be necessary.
== END ==
LOC: M SLEEP HO 10:52
PROVIDERS: ATTEND Nurse Practitioner Family
DX: R40.0 Somnolence (principal)

== ENCOUNTER → 2019-03-07 | Outpatient (CLI) | payer OTHER ==
--- NOTE | 2019-03-08 09:35 | REP ---
MRI CERVICAL SPINE WITHOUT CONTRAST: TECHNIQUE: Multiple sequences obtained in the axial and sagittal planes without the use of intravenous contrast. There is no compression fracture or malalignment. Normal bone marrow signal is seen. There is diffuse loss of water signal and disc degeneration. There is slight disc space narrowing at C4-5 with moderate disc space narrowing at C5-6. No abnormal signal is seen in the cervical spinal cord. Moderate anterior spurring is seen at C3-C7. No significant disc bulging or herniation is seen at the C2-3 level. There is no spinal stenosis or foraminal narrowing. At C3-4 there is a very small central disc herniation. This effaces the anterior subarachnoid space, but does not significantly compress the cord. There is mild uncovertebral spurring. There is not significant neural foraminal narrowing. No significant disc bulging or herniation is seen at the C4-5 level. There is no spinal stenosis or foraminal narrowing. At C5-6 there is moderate posterior disc bulge with associated posterior spurring centrally. This causes mild anterior cord compression. There is no neural foraminal narrowing. At C6-7 there is not significant disc bulging or herniation. There is no spinal stenosis or neural foraminal narrowing. At C7-T1 there is mild diffuse disc bulging. There is no neural foraminal narrowing or spinal stenosis. IMPRESSION: Small central disc herniation C3-4 level effaces the anterior subarachnoid space, but does not compress the cord. No neural foraminal narrowing at that level. At C5-6 there is broad based central disc bulging and spurring which mildly compresses the anterior cord. No neural foraminal narrowing at this level. At C7-T1 there is mild diffuse disc bulging without spinal stenosis or neural foraminal narrowing. Electronically Signed by Contreras Shields MD 03/08/2019 04:26 P
== END ==
LOC: M RAD 15:00
PROVIDERS: ATTEND Nurse Practitioner Family
DX: M50.21 Other cervical disc displacement, high cervical region (principal); M50.222 Other cervical disc displacement at C5-C6 level; M50.23 Other cervical disc displacement, cervicothoracic region

== ENCOUNTER → 2019-03-23 | Outpatient (CLI) | payer OTHER ==
--- NOTE | 2019-03-23 12:43 | REPMRS ---
Patient History The patient states she has not had a clinical breast exam in over a year. Benign core biopsy of the left breast. patient has gained 40 pounds. 3D TOMOSYNTHESIS WAS PERFORMED. [facility] lifetime risk for [facility] cancer is 8.2%. Digital Mammo Screening Bilat: March 23, 2019 - Exam #: [id number] Bilateral CC and MLO view(s) were taken. Technologist: Lorie Briggs, Technologist Prior study comparison: February 24, 2018, bilateral digital mammo screening bilat performed at [facility]. October 13, 2015, bilateral digital mammo screening bilat, performed at [facility]. FINDINGS: There are scattered fibroglandular densities. There has been no change in the appearance of the mammogram from the prior studies. There is a mild amount of residual fibroglandular tissue which is fairly symmetric. There is no interval development of dominant mass, architectural distortion, or clustered microcalcification suggestive of malignancy. Assessment: BI-RADS/ACR category 1 mammogram. Negative Mammogram. Recommendation Routine screening mammogram in 1 year (for women over age 40). This mammogram was interpreted with the aid of an FDA-approved computer-aided dectection system. Electronically Signed By: Contreras Shields MD 03/23/19 [id number]
== END ==
LOC: M RAD 11:41
PROVIDERS: ATTEND Nurse Practitioner Family
DX: Z12.31 Encounter for screening mammogram for malignant neoplasm of breast (principal)

== ENCOUNTER → 2019-04-27 | Outpatient (CLI) | payer OTHER ==
[~2019-04-27] MED LIST changes: +LISI10TA15 PO; -LISI10TA2 PO; +LISI20TA20 PO; -LISI20TA3 PO
[2019-04-27 11:15] LABS: HEMOGLOBIN A1c 9.3 %
[2019-04-27 11:25] LABS: CALCIUM LEVEL 8.4 MG/DL (8.5-10.1); CREATININE FOR GFR 1.41 MG/DL (0.55-1.30); GLOMERULAR FILTRATION RATE 40.9 (>51); POTASSIUM SERUM 4.5 MEQ/L (3.5-5.1)
== END ==
LOC: M LAB 10:30
PROVIDERS: ATTEND Nurse Practitioner Family
DX: E11.8 Type 2 diabetes mellitus with unspecified complications (principal); E03.9 Hypothyroidism, unspecified; I10 Essential (primary) hypertension

== ENCOUNTER 2019-08-13 14:19 | Observation (INO) | payer OTHER ==
[~2019-08-13] VITALS: Ht 170.2 cm; Wt 127.6 kg
[2019-08-13] MEDS ORDERED: LISI-1046 PO (14:38)
[2019-08-13] MEDS ORDERED: TRES1INJ SC (14:38)
[2019-08-13 14:52] LABS: BASO # 0.1 10^3/uL (0.0-0.2); BASO % 0.4 % (0.0-1.0); EOS # 0.1 10^3/uL (0.0-0.5); EOS % 0.9 % (0.0-3.0); HEMATOCRIT 41.9 % (36.0-47.0); HEMOGLOBIN 13.3 g/dl (12.0-15.5); LYMPH # 2.8 10^3/uL (1.5-5.0); LYMPH % 23.7 % (24.0-44.0); MEAN CORPUSCULAR HEMOGLOBIN 31.5 pg (27.0-33.0); MEAN CORPUSCULAR HGB CONC 31.7 g/dl (32.0-36.5); MEAN CORPUSCULAR VOLUME 99.3 fl (80.0-96.0); MONO # 0.8 10^3/uL (0.0-0.8); MONO % 6.7 % (0.0-5.0); NEUTROPHILS % 67.8 % (36.0-66.0); PLATELET COUNT, AUTOMATED 297 10^3/uL (150-450); RED BLOOD COUNT 4.22 10^6/uL (4.00-5.40); WHITE BLOOD COUNT 11.8 10^3/uL (4.0-10.0)
--- NOTE | 2019-08-13 15:02 | REP ---
Portable chest x-ray: Single view. History: Chest pain. Comparison study: November 28, 2017. Findings: There is minimal linear fibrosis in the left inferior perihilar region. No infiltrate is seen. Pleural angles are sharp. Heart size is borderline. Pulmonary vasculature is somewhat prominent. No pleural effusion or pulmonary edema is seen. Impression: Borderline heart size. Linear fibrosis on the left. Mild vascular congestion. Electronically Signed by Ralph Sears MD 08/13/2019 02:54 P
[2019-08-13 15:28] LABS: BLOOD UREA NITROGEN 21 MG/DL (7-18); CALCIUM LEVEL 8.9 MG/DL (8.5-10.1); CARBON DIOXIDE LEVEL 25 MEQ/L (21-32); CHLORIDE LEVEL 111 MEQ/L (98-107); CK-MB VALUE MASS 1.1 NG/ML (<3.6); CPK CREATINE PHOSPHOKINASE 63 U/L (26-192); CREATININE FOR GFR 1.36 MG/DL (0.55-1.30); GLOMERULAR FILTRATION RATE 42.7 (>51); GLUCOSE, FASTING 108 MG/DL (70-100); MB/CK RELATIVE INDEX 1.75 (< OR =4); NT-PRO BNP 141 PG/ML (<125); SODIUM LEVEL 144 MEQ/L (136-145); TROPONIN I < 0.02 NG/ML (< 0.10)
[2019-08-13] MEDS ORDERED: GI COCKTAIL 50ML BTL(HYOSCYAMINE/MAALOX/LIDOCAINE VISCOUS)(1:3:1) PO ONE (15:45)
[2019-08-13] MEDS ORDERED: NITROGLYCERIN 2% OINT 1 GM *U/D* PKT TOP ONE (15:45)
[2019-08-13 16:24] LABS: ALBUMIN 3.1 GM/DL (3.2-5.2); ALT/SGPT 20 U/L (12-78); BILIRUBIN,DIRECT 0.2 MG/DL (0.0-0.2); BILIRUBIN,TOTAL 0.5 MG/DL (0.2-1.0); LIPASE 120 U/L (73-393)
[2019-08-13] MEDS ORDERED: ISOVUE-370 76% 100ML VIAL (Q9967) As Ordered ONE (16:30)
--- NOTE | 2019-08-13 18:11 | REPVR ---
PROCEDURE INFORMATION: Exam: CT Angiography Chest With Contrast Exam date and time: 08/13/2019 5:12 PM Age: 59 years old Clinical history: Chest pain TECHNIQUE: Imaging protocol: Computed tomographic angiography of the chest with intravenous contrast. 3D rendering: MIP reconstructed images were created and reviewed. Radiation optimization: All CT scans at this facility use at least one of these dose optimization techniques: automated exposure control; mA and/or kV adjustment per patient size (includes targeted exams where dose is matched to clinical indication); or iterative reconstruction. Contrast material: Isovue 370; Contrast volume: 75 ml; Contrast route: IV; COMPARISON: CR PORTABLE CHEST X-RAY 08/13/2019 2:[address] ABD/PELVIS W/O CONTRAST - OUTSIDE PRIOR 09/09/2016 11:06:07 AM FINDINGS: Pulmonary arteries: Normal. No pulmonary emboli. Aorta: Unremarkable. No aortic aneurysm. No aortic dissection. Thyroid: LEFT thyroid hypodensity measuring 7.9 mm. No specific followup required. Lungs: Small centrilobular emphysematous focus RIGHT upper lobe. Pleural space: Unremarkable. No pneumothorax. No pleural effusion. Heart: Unremarkable. No cardiomegaly. No pericardial effusion. Adrenals: 4.9 x 4.1 x 4.6 cm RIGHT adrenal fossa mass containing areas of fat attenuation (series 401, image 165), and high attenuation (series 401, images 170, 174; calcification?). The lesion previously measured 5.0 x 4.2 x 4.6 cm Kidneys and ureters: The RIGHT kidney is absent. Surgical clips are noted in the right renal fossa. Previous RIGHT nephrectomy. Lymph nodes: Unremarkable. No enlarged lymph nodes. Bones/joints: No destructive bony process identified. Soft tissues: Unremarkable. IMPRESSION: 1. No thoracic aortic aneurysm or dissection identified. 2. No pulmonary embolism identified. 3. RIGHT adrenal mass, stable size for almost 4 years. COMMENT: In patients aged 35 years and older with an incidental thyroid nodule equal to or greater than 1.[address], MRI or extrathyroidal US, further evaluation with dedicated thyroid US is recommended for patients with normal life expectancy and without comorbidities. For smaller nodules without suspicious features, no further evaluation or follow up is recommended. Electronically signed by: Nino Moent On 08/13/2019 18:11:07 PM
[2019-08-13] MEDS ORDERED: FUROSEMIDE 20 MG/2 ML VIAL (J1940) IV ONE (19:45)
[2019-08-13] MEDS ORDERED: ATOR40TA75 PO (20:07)
[2019-08-13] MEDS ORDERED: OMEP20TA9 PO (20:07)
[2019-08-13] MEDS ORDERED: GLUCAGON FOR INJ 1 MG VIAL (J1610) SC PRN (21:15)
[2019-08-13] MEDS ORDERED: GLUCOSE 4 GM CHEW TABLET PO PRN (21:15)
[2019-08-13] MEDS ORDERED: LEVEMIR (INSULIN DETEMIR) 1 UNITS/0.01ML SC ONE (21:15)
[2019-08-13] MEDS ORDERED: DEXTROSE 50% 50 ML SYRINGE IV PRN (21:15)
[2019-08-13] MEDS ORDERED: METOPROLOL TART 25 MG TABLET PO ONE (21:45)
[2019-08-14 00:05] VITALS: BP 133/60
[2019-08-14] MEDS: HEPARIN SOD (PORCINE) 5000 UNITS/ML VIAL SC SCH ×3 (00:07→22:44)
[2019-08-14] MEDS: OMEPRAZOLE 20 MG CAP PO SCH ×2 (00:08→10:09)
[2019-08-14] MEDS: NITROGLYCERIN 2% OINT 1 GM *U/D* PKT TOP SCH ×2 (00:09→04:57)
--- NOTE | 2019-08-14 02:43 | HPEPDOC ---
General Date of Admission Aug 13, 2019 at 20:40 Date of Service: Aug 13, 2019 Primary Care Physician: Jennifer Benito Other Providers Tank Cleaning Supervisor: Dr. Paula Batch Unloader: Marquise Patel Chief Complaint The patient is a 59-year-old female admitted with a reason for visit of Atypical Chest Pain; Diabetes Mellitus. History of Present Illness 59-year-old female with PMH of CAD stage III, hypertension, SG on CPAP, DM 2 sent to the ER via EMS from her PCPs office due to her ongoing diffuse upper chest pain, tightness, shortness of breath for the past 2-3 weeks. She reports she had these symptoms for about a month, was increased on Prilosec with some improvement. Her hydrochlorothiazide was discontinued and lisinopril dose reduced to 2.5 mg by nephrology about 3 weeks ago due to her low blood pressures at that time. She reports since then, she has noted increased swelling in lower extremities. This did somewhat improve with limiting salt and elevating legs, however now she feels short of breath after taking just a few steps, whereas prior, she was able to ambulate a couple yards. Denies PND, orthopnea, fevers, cough. She states she usually sleeps with 3 pillows, and has not required increased elevation while sleeping. Denies any recent sick contacts or travel or any other med changes. In the ER, EKG was unremarkable without any ST elevations, heart rate 79 NSR, cardiac markers negative. She had mildly elevated proBNP at 141 with some borderline cardiomegaly and increased pulmonary vasculature on chest x-ray. CTA negative for PE. Home Medications Scheduled Aspirin (Aspir 81) 81 Mg Tab, 81 MG PO DAILY, (Reported) Atorvastatin Calcium (Atorvastatin Calcium) 40 Mg Tablet, 40 MG PO DAILY, (Reported) Cholecalciferol (Vitamin D3) (Vitamin D3) 1,000 Unit Tab, 2,000 UNIT PO DAILY, (Reported) Insulin Degludec (Tresiba Flextouch U-200) 200 Unit/1 Ml Insuln.pen, 64 UNIT SC DAILY, (Reported) Levothyroxine Sodium (Levothyroxine Sodium) 75 Mcg Tab, 75 MCG PO DAILY, (Reported) TAKES BRAND SYNTHROID Lisinopril (Lisinopril) 2.5 Mg Tablet, 2.5 MG PO DAILY, (Reported) Omeprazole (Omeprazole) 20 Mg Tablet.dr, 20 MG PO BID, (Reported) Sitagliptin (Januvia) 50 Mg Tab, 50 MG PO DAILY, (Reported) Allergies Coded Allergies: morphine (Verified Allergy, Mild, itching, 08/13/19) Past Medical History Medical History CKD stage III Hypertension Kidney cancer '98 S/P right nephrectomy Morbid obesity SG on CPAP DM 2 OA Hypothyroidism Right intrarenal mass stable Surgical History Right nephrectomy D&C Pins in right hip Family History Both parents . Father had diabetes, brain cancer, hypertension, emphy sema. Mother had Alzheimer's Social History Ambulatory with walker. Smokes half a pack per day since age of 17. Denies any alcohol or illicit substances. Currently on disability due to arthritis. 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 A-FIB/CHADSVASC A-FIB History Current/History of A-Fib/PAF?: No Current PO Anticoag Therapy: No Review of Systems Other systems Constitutional: Denies fever, chills, night sweats, weight loss Skin: Denies any rashes or lesions Pulmonary: Denies cough, wheezing. Admits dyspnea Cardiac: Denies palpitations, orthopnea, PND, lightheadedness. Admits chest tightness and diffuse upper chest pain GI: Denies nausea, vomiting, abdominal pain, diarrhea, constipation, melena, hematochezia MSK: Admits baseline arthritic pains and using walker Neurologic: Denies weakness, numbness/tingling Physical Examination Other physical findings General exam: Alert and cooperative, A&O 3, NAD, speaking in full sentences Eye exam: PERRLA, EOMI ENT: Atraumatic, normocephalic, mucous membranes moist, tongue midline, no pharyngeal edema Neck: Supple, no appreciable JVD Cardiac: RRR, normal S1 & S2, no murmurs Respiratory: CTAB, good air exchange, no wheezing, rhonchi, or rales Abdomen: normoactive bowel sounds, soft, nontender, nondistended Extremity: 2+ radial pulses, no clubbing, cyanosis, or tenderness. Trace edema Skin: Bricelyn, warm, dry, no visible rash or lesions, no jaundice MSK: Strength 5/5 x4, normal tone Neuro: no focal deficit Psych: Normal mood and affect Vital Signs Vital Signs Date Time Temp Pulse Resp B/P (MAP) Pulse Ox O2 Delivery O2 Flow Rate FiO2 08/14/19 00:09 133/60 08/14/19 00:08 76 08/13/19 22:49 96.0 20 98 Room Air Laboratory Data Labs 24H Laboratory Tests 2 08/13/19 14:34: Immature Granulocyte % (Auto) 0.5, Neutrophils (%) (Auto) 67.8H, Lymphocytes (%) (Auto) 23.7L, Monocytes (%) (Auto) 6.7H, Eosinophils (%) (Auto) 0.9, Basophils (%) (Auto) 0.4, Neutrophils # (Auto) 8.0, Lymphocytes # (Auto) 2.8, Monocytes # (Auto) 0.8, Eosinophils # (Auto) 0.1, Basophils # (Auto) 0.1, Nucleated Red Blood Cells % (auto) 0.0, Anion Gap 8, Glomerular Filtration Rate 42.7L, Calcium Level 8.9, Total Bilirubin 0.5, Direct Bilirubin 0.2, Aspartate Amino Transf (A ST/SGOT) 8, Alanine Aminotransferase (ALT/SGPT) 20, Alkaline Phosphatase 129H, Total Creatine Kinase 63, Creatine Kinase MB 1.1, Creatine Kinase MB Relative Index 1.75, Troponin I < 0.02, TE-Lqu-P-Type Natriuretic Peptide 141H, Total Protein 7.0, Albumin 3.1L, Albumin/Globulin Ratio 0.79L, Lipase 120, Thyroid Stimulating Hormone (TSH) 3.650 08/13/19 23:27: Bedside Glucose (Misc Panel) 196H 08/14/19 00:00: Troponin I < 0.02 CBC/BMP Laboratory Tests 08/13/19 14:34 Assessment/Plan 59-year-old female with PMH of CKD stage III, hypertension, SG on CPAP, DM 2, right nephrectomy due to kidney cancer in , admitted for diffuse upper chest pain & tightness with shortness of breath worsening over past 2-3 weeks. Was taken off HCTZ 3 weeks ago and reduced Lisinopril to 2.5mg. Atypical chest pain * EKG, cardiac markers, CTA negative. Unlikely infectious etiology given no fevers/chills, and clear imaging. New-onset CHF remains on the differential, although she does not display the typical picture, borderline BNP, essentially euvolemic, and lungs don't appear wet on imaging. There is concern that this may be true cardiac event, especially in light of her multiple risk factors [obesity, active smoking, dyslipidemia, SG, age, HTN, DM2]. Repeat cardiac markers, EKG, and echo ordered. Case discussed with Dr. Espinosa, who agrees with current workup and will see the patient in consult. Appreciate his input. Patient may benefit from stress test upon discharge. In the meanwhile, we'll continue her aspirin and statin and lisinopril and start on beta carlota prophylactically. May also be GERD versus unlikely pericarditis given normal EKG and physical. Will institute Lasix as well and monitor for improvement. Daily weights, strict I/O, and 2L fluid restriction in place. Dyslipidemia * Continue aspirin statin. Lipid panel pending CKD stage III * Currently at baseline 1.3-1.4 * Monitor Hypertension * Controlled, continue home Lisinopril Kidney cancer * S/P right nephrectomy 1997 GERD * Continue PPI Morbid obesity * Complicates care with BMI 44 SG on CPAP * May use home CPAP DM 2 * Insulin sliding scale replacing Tresiba & Januvia Hypothyroidism * TSH normal. Continue Synthroid Tobacco use * Counseled on smoking cessation. Nicotine patch ordered Adrenal Mass likely incidentaloma, stable on current imaging DVT PPX: Heparin DISPO: admits to hospitalist service. To be seen by Cardio. Given high risk of cardiac event and pending w/u, will require >2 midnights. Plan / VTE VTE Prophylaxis Ordered?: Yes GME ATTESTATION GME ATTESTATION My faculty preceptor for this patient encounter was physically present during the encounter and was fully available. All aspects of the patient interview, examination, medical decision making process, and medical care plan development were reviewed and approved by the faculty preceptor. The faculty preceptor is aware and concurs with the plan as stated in the body of this note and will attest to such by his/her cosignature. ROBBIN GODOY DO Aug 14, 2019 02:43
[2019-08-14 04:55] VITALS: BP 115/64
[2019-08-14 06:00] VITALS: BP 122/64
[2019-08-14 06:15] LABS: HEMATOCRIT 41.8 % (36.0-47.0); HEMOGLOBIN 13.3 g/dl (12.0-15.5); MEAN CORPUSCULAR HEMOGLOBIN 31.4 pg (27.0-33.0); MEAN CORPUSCULAR HGB CONC 31.8 g/dl (32.0-36.5); MEAN CORPUSCULAR VOLUME 98.8 fl (80.0-96.0); PLATELET COUNT, AUTOMATED 311 10^3/uL (150-450); RED BLOOD COUNT 4.23 10^6/uL (4.00-5.40); WHITE BLOOD COUNT 12.5 10^3/uL (4.0-10.0)
[2019-08-14] MEDS: ACETAMINOPHEN TAB 650MG DOSE (2X325MG) PO PRN (06:23)
[2019-08-14 06:36] LABS: BLOOD UREA NITROGEN 23 MG/DL (7-18); CALCIUM LEVEL 8.8 MG/DL (8.5-10.1); CARBON DIOXIDE LEVEL 26 MEQ/L (21-32); CHLORIDE LEVEL 109 MEQ/L (98-107); CHOLESTEROL LEVEL 104 MG/DL (<200); CHOLESTEROL RISK RATIO 3.058 (<5); CK-MB VALUE MASS < 1.0 NG/ML (<3.6); CPK CREATINE PHOSPHOKINASE 53 U/L (26-192); CREATININE FOR GFR 1.55 MG/DL (0.55-1.30); GLOMERULAR FILTRATION RATE 36.7 (>51); GLUCOSE, FASTING 99 MG/DL (70-100); HDL CHOLESTEROL 34 MG/DL (>40); LDL CHOLESTEROL 30 MG/DL (<100); MB/CK RELATIVE INDEX 1.89 (< OR =4); NON-HDL-C 70 MG/DL; NT-PRO BNP 140 PG/ML (<125); POTASSIUM SERUM 4.1 MEQ/L (3.5-5.1); SODIUM LEVEL 142 MEQ/L (136-145); TRIGLYCERIDES LEVEL 199 MG/DL (<150); TROPONIN I < 0.02 NG/ML (< 0.10)
[2019-08-14] MEDS: HumaLOG INSULIN (NovoLOG) PER UNIT SC SCH ×3 (07:30→17:52)
[2019-08-14] MEDS ORDERED: LISINOPRIL *2.5 MG* TAB PO SCH (09:00)
[2019-08-14] MEDS ORDERED: FUROSEMIDE 20 MG TAB PO SCH (09:00)
--- NOTE | 2019-08-14 09:24 | IPNPDOC ---
Subjective Date Seen The patient was seen on 08/14/19. Subjective Chief Complaint/HPI Continues to have CP- has been constatn sternal CP x 2 weeks. Also reports increased GERD symptoms over past few weeks. Less SOB today. Edema improved since admission Constitutional: Denies: Chills, Fever Pulmonary: Reports: Dyspnea; Denies: Cough Cardiovascular: Reports: Chest Pain; Denies: Palpitations, Orthopnea Gastrointestinal: Denies: Nausea, Vomiting, Abdominal Pain, Diarrhea, Constipation Objective Physical Examination General Exam: Positive: Alert, No Acute Distress Chest Exam: Positive: Clear to auscultation, Other (Tender lower sternum- reproduces her chest pain); Negative: Rales, Rhonchi, Wheezing Heart Exam: Positive: Rate Normal, Regular Rhythm Abdomen Exam: Positive: Normal bowel sounds, Soft, Tenderness (slight epigastic tenderness) Extremity Exam: Positive: Edema (trace edema BL) Assessment /Plan Problems (1) Atypical chest pain Status: Acute Problem Text: favor subacute costochondritis +/- GERD-flared 2 precedent URI c persistent cough has been present 2W 08/14 DM 60 IV x 1 (if improved favor dexa taper), omep 20 BID to panto [address] Espinosa to see px in consult 08/14 - serial T-I x5, EKG 08/13 CTA chest -PE/TAA (2) GERD (gastroesophageal reflux disease) Problem Text: as per CP (3) Edema Status: Chronic Response to Treatment: Stable Problem Text: 08/14 sp fur 20 IV x 1 08/13 BNP 140 08/13 TTE P (4) CKD (chronic kidney disease) stage 3, GFR 30-59 ml/min Status: Chronic Problem Text: at baseline cr 1.5-1.6 (5) DM type 2 (diabetes mellitus, type 2) Status: Chronic Response to Treatment: Stable (6) Smoker Problem Text: nicoderm patch (7) SG (obstructive sleep apnea) (8) CAD (coronary artery disease) Problem Text: Cont ASA/Lipitor Plan/VTE VTE Prophylaxis Ordered?: Yes (SQ heparin) Disposition Patient is observation. D/C in am pending Dr. Espinosa's consult VS, I&O, 24H, Fishbone Vital Signs/I&O Vital Signs Date Time Temp Pulse Resp B/P (MAP) Pulse Ox O2 Delivery O2 Flow Rate FiO2 08/14/19 06:00 97.8 78 18 122/64 (83) 98 Room Air I&O- Last 24 Hours up to 6 AM 08/14/19 06:00 Intake Total 260 ml Output Total 300 ml Balance -40 ml Laboratory Data 24H LABS Laboratory Tests 2 08/13/19 14:34: Immature Granulocyte % (Auto) 0.5, Neutrophils (%) (Auto) 67.8H, Lymphocytes (%) (Auto) 23.7L, Monocytes (%) (Auto) 6.7H, Eosinophils (%) (Auto) 0.9, Basophils (%) (Auto) 0.4, Neutrophils # (Auto) 8.0, Lymphocytes # (Auto) 2.8, Monocytes # (Auto) 0.8, Eosinophils # (Auto) 0.1, Basophils # (Auto) 0.1, Nucleated Red Blood Cells % (auto) 0.0, Anion Gap 8, Glomerular Filtration Rate 42.7L, Calcium Level 8.9, Total Bilirubin 0.5, Direct Bilirubin 0.2, Aspartate Amino Transf (AST/SGOT) 8, Alanine Aminotransferase (ALT/SGPT) 20, Alkaline Phosphatase 129H, Total Creatine Kinase 63, Creatine Kinase MB 1.1, Creatine Kinase MB Relative Index 1.75, Troponin I < 0.02, MB-Avp-J-Type Natriuretic Peptide 141H, Total Protein 7.0, Albumin 3.1L, Albumin/Globulin Ratio 0.79L, Lipase 120, Thyroid Stimulating Hormone (TSH) 3.650 08/13/19 23:27: Bedside Glucose (Misc Panel) 196H 08/14/19 00:00: Troponin I < 0.02 08/14/19 02:54: Troponin I < 0.02 08/14/19 05:54: Nucleated Red Blood Cells % (auto) 0.0, Anion Gap 7L, Glomerular Filtration Rate 36.7L, Calcium Level 8.8, Total Creatine Kinase 53, Creatine Kinase MB < 1.0, Creatine Kinase MB Relative Index 1.89, Troponin I < 0.02, UQ-Svj-W-Type Natriuretic Peptide 140H, Triglycerides Level 199H, Total Cholesterol 104, LDL Cholesterol 30, Non-HDL Cholesterol (LDL + VLDL) 70, Total HDL Cholesterol 34L, Cholesterol/HDL Ratio 3.058 08/14/19 07:31: Troponin I < 0.02 CBC/BMP Laboratory Tests 08/13/19 14:34 08/14/19 05:54 MIGUEL A AVALOS PA-C Aug 14, 2019 09:24 Gerald Fitzpatrick M.D. Aug 14, 2019 17:58
[2019-08-14] MEDS ORDERED: LIDOCAINE 5% (LIDODERM) PATCH TD ONE (10:00)
[2019-08-14] MEDS: ATORVASTATIN 20 MG TAB PO SCH (10:09)
[2019-08-14] MEDS: ASPIRIN 81 MG ENTERIC TAB PO SCH (10:10)
[2019-08-14] MEDS: LEVOTHYROXINE 75MCG TABLET (0.075MG) PO SCH ×2 (10:10→10:35)
[2019-08-14] MEDS: VITAMIN D 1,000 INTERNATIONAL UNITS TABLET PO SCH (10:10)
[2019-08-14] MEDS: LEVEMIR (INSULIN DETEMIR) 1 UNITS/0.01ML SC SCH ×2 (10:11→22:44)
[2019-08-14] MEDS: NICOTINE 14 MG/24 HR TRANSDERMAL TD SCH (10:13)
[2019-08-14] MEDS: METOPROLOL TART 25 MG TABLET PO SCH ×2 (10:26→22:45)
--- NOTE | 2019-08-14 13:03 | ECGEPIP ---
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
[2019-08-14 14:00] VITALS: BP 118/64
--- NOTE | 2019-08-14 18:13 | ECHO ---
DATE OF PROCEDURE: 08/14/2019 Date of : 1960 Age: 59 Gender: Female Height: 67 inches Weight: 284 pounds Body surface area: 2.35 meters squared Inpatient: [address] [place], room 4206 REFERRING PHYSICIAN: Dr. Lior Contreras DO INDICATION: Chest pain. MEASUREMENTS: 2D Measurements: RV: 3.8 cm LV: 4.0 cm Septum: 1.1 cm Posterior wall: 1.1 cm Aortic root: 2.6 cm LA: 3.6 cm LVEF: 75% Doppler Measurements: AV: 1.4 meters per second LVOT: 0.85 meters per second LVOT diameter: 2.1 cm MV-E: 71, A: 81, EA ratio: 0.9 Early mitral deceleration time: 254 milliseconds E prime medial: 7.6, A prime medial: 10.4, E prime lateral: 5.4 Average E/E prime ratio: 10.9 Pulmonary capillary wedge pressure: 15 mmHg PV: 0.95 meters per second Pulmonary artery acceleration time: 120 milliseconds PASP: 25 mmHg IVC: 1.9 cm COMMENTS: Normal sinus rhythm without intraventricular conduction disturbance. Technically challenging study in light of the patient's body habitus but diagnostically useful information was still obtained. M-mode and two-dimensional echocardiography was performed with pulsed, continuous wave, color flow and tissue Doppler studies. Left ventricular wall thickness upper limits of normal with normal left ventricular size and hyperkinetic wall motion. Left atrial size upper limits of normal with Doppler evidence of grade 1 left ventricular (LV) diastolic dysfunction and current estimated mean left atrial pressure slightly elevated. Normal right heart chamber sizes and wall motion and estimated pulmonary arterial pressure. Normal inferior vena cava (IVC) size and collapse against an elevated central venous pressure. Normal appearing and functioning valvular structures. No apparent intracardiac mass. Physiological amount of pericardial fluid. No apparent structural or functional cause for her chest pain could be determined.
[2019-08-14] MEDS ORDERED: methylPREDNISolone INJ 125 MG/2 ML VIAL (J2930) IV ONE (18:15)
[2019-08-14] MEDS ORDERED: **NOTE PATIENT COMMENT** MISC XX ONE (21:00)
[2019-08-14 22:00] VITALS: BP 129/73
[2019-08-14] MEDS: PANTOPRAZOLE 40MG TAB (PROTONIX) PO SCH (22:44)
--- NOTE | 2019-08-15 | ECGEPIP ---
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 Electronically Signed on 08-15-2019 0:00:08 EST by Mario Espinosa
--- NOTE | 2019-08-15 00:41 | CR ---
DATE OF CONSULTATION: 08/14/2019 CARDIOLOGY CONSULTATION REFERRING PROVIDER: Dr. Lior Contreras REASON FOR CONSULTATION: Chest pain. PRIMARY PROVIDER: Jennifer Benito in [place], [place]. COMMUNITY YOUTH SECRETARY: Dr. Paula's office. HISTORY OF THE PRESENT ILLNESS: A 59-year-old woman, went to see her primary on the day of hospitalization, 08/13/2019, because of a 2-week history of chest pain, shortness of breath. In view of her overall cardiovascular risk factors, she was sent to the emergency room (ER) via ambulance for further evaluation. She was admitted for further management and monitoring and cardiology consult was called. Case was discussed last night with admitting hospitalist. When I saw Mrs. Nancy Fuentes today, she was sitting in chair in no acute distress at rest, and a friend was at bedside. She has not been having any chest pain. She was given some nitroglycerin sublingual yesterday that has brought some relief of her pain but only slightly. She is being treated for gastroesophageal reflux disease (GERD). She thinks the pain could be related to GERD or her cough. She has been coughing but without any fever or hemoptysis. Since in the hospital, she is doing much better. On a scale of 0 to 10, it was a 7, her chest pain. There was no radiation. She was also complaining of shortness of breath with activities, relieved with rest, but she thinks it is her baseline. She denied any palpitations. She did have some pedal edema, she stated her diuretic was recently discontinued. She denies any syncope or near syncope. Since in the hospital, her pedal edema has improved. She has no nausea, vomiting, diarrhea, melena or hematemesis. There is no report of fever or chills. She has a past medical history positive for hypertension, hyperlipidemia, diabetes mellitus, morbid obesity, obstructive sleep apnea, hypothyroidism, arthritis. 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 She is now being monitored in [place], [place] by orthopedics, and she thinks she might need surgery in the near future. There is no known history of obstructive coronary artery disease, myocardial infarction, congestive heart failure, significant valvular heart disease, atrial fibrillation/flutter, transient ischemic attack (TIA)/CVA, cardiomyopathy, sudden cardiac . PAST SURGICAL HISTORY: Positive for right nephrectomy for renal carcinoma, dilation and curettage (D and C), section times one, and she has a dk in her right hip. She also was found to have an adrenal tumor that has been stable. FAMILY HISTORY: Positive for heart disease, both her father and her mother. Her father also had diabetes mellitus and hypertension. SOCIAL HISTORY: The patient lives at home, and she smokes about half a pack per day of cigarettes. She denies any ethyl alcohol (EtOH) abuse or illicit drugs. She is currently using a walker for ambulation and stabilization. She has been on disability because of her arthritis. 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 MEDICATIONS AT HOME: Aspirin 81 mg by mouth daily, atorvastatin 40 mg by mouth daily, vitamin D, insulin, levothyroxine 75 mcg by mouth daily, lisinopril 2.5 mg by mouth daily, omeprazole 20 mg by mouth twice a day and Januvia 50 mg by mouth daily. CURRENT MEDICATIONS: Pantoprazole 40 mg by mouth twice a day, aspirin 81 mg by mouth daily, atorvastatin 40 mg by mouth daily, vitamin D 2000 units by mouth daily, Levemir insulin 30 units subcu twice a day, nicotine patch, metoprolol tartrate 25 mg by mouth twice a day, regular insulin coverage, Tylenol 650 mg every 6 hours as needed for pain or fever, heparin subcu 5000 units every 12 hours and also on D50 as well as glucose tablets and Glucagon for episodes of hypoglycemia. Since in the hospital, she also has received IV Lasix. PHYSICAL EXAMINATION: The patient is alert and oriented, in no acute distress at rest, and her most recent vital signs revealed a blood pressure of 118/64 with a pulse of 69, respirations 18-20, and her maximum temperature is 97.8 degrees Fahrenheit with an oxygen saturations of 97% on room air. Examination of the head: Atraumatic. Examination of the neck did not reveal any jugular venous distention (JVD) while sitting up in a chair. I could not appreciate any carotid bruits. Lungs: Did not reveal any wheezing or crackles. The heart examination revealed regular heart sounds without gallops. The point of maximum impulse (PMI) is not displaced. There is no rub. I could not appreciate any murmurs. Abdomen he is protuberant, not palpated. Extremities: Revealed trace bilateral ankle edema. Neurological examination is negative for focal deficits. LABORATORY: CBC done today revealed a WBC of 12.5, hemoglobin 13.3, hematocrit 41.8 and platelets 311,000. BMP revealed a sodium of 142, potassium 4.1, chloride 109, CO2 of 26, BUN 23, creatinine 1.55, GFR of 36.7, fasting glucose 99, calcium 8.8. Repeat profile done today revealed a total cholesterol of 104, triglycerides 199, LDL 30, HDL 34, and total cholesterol/HDL ratio of 3.06. Serum TSH is 3.65. Serum troponin has been negative, less than 0.02 times four. Serum pro-BNP was 141 and 140, respectively #1 and #2. Liver enzymes on admission, 08/13/2019, revealed a total bilirubin of 0.5, direct bilirubin 0.2, AST 8, ALT 20, alkaline phosphatase 129, total protein 7.0, and albumin 3.1. Chest x-ray on admission revealed borderline cardiomegaly and mild vascular congestion. CT angio revealed no evidence of aortic aneurysm or dissection, no pulmonary embolism. There was a right adrenal mass, stable for almost 4 years as reported. A left thyroid hypodensity also was noted, 7.9 mm. Echocardiogram done today revealed a normal global left ventricular systolic function estimated at 75% without evidence of significant valvular heart disease. There is some degree of left ventricular diastolic dysfunction. EKG on 08/13/2019 revealed normal sinus rhythm at 79 beats per minute, poor R wave progression and low voltage QRS complexes noted in the chest leads. Most recent EKG on 11/29/2017, no significant changes. Chest pain in this 59-year-old woman with multiple risk factors for coronary artery disease. Her chest pain very atypical and probably not related to angina. This was discussed with her, and she was reassured. Her serum troponin remained negative, and there were no EKG changes. Her medications were reviewed, and I will continue the same for now, the cardiac meds with aspirin, the atorvastatin, the angiotensin-converting enzyme (IMTIAZ) inhibitor, as well as the beta carlota. She is being treated for GERD, and this is improving. She has not been coughing. She probably has some degree of heart failure on admission causing her cough. If she remains symptomatic after ambulating tomorrow, she can go home and we will see her as an outpatient for further cardiac evaluation. This was discussed with her as well as admitting hospitalist. It was a pleasure to participate in the care of Mrs. Nancy Fuentes for her underlying cardiac condition. Please do not hesitate to call if any questions. Also, smoking cessation was discussed with her, and she is willing now to quit. In the meantime, she will continue with the nicotine patch. NGOC
[2019-08-15] MEDS: ACETAMINOPHEN TAB 650MG DOSE (2X325MG) PO PRN (00:45)
[2019-08-15 06:00] VITALS: BP 125/73
[2019-08-15] MEDS ORDERED: SYNTHROID 75 MCG PO SCH (06:00)
[2019-08-15] MEDS ORDERED: LEVOTHYROXINE 75MCG TABLET (0.075MG) PO SCH (06:00)
[2019-08-15 06:07] LABS: BASO % 0.3 % (0.0-1.0); HEMOGLOBIN 12.7 g/dl (12.0-15.5); LYMPH # 1.2 10^3/uL (1.5-5.0); LYMPH % 10.7 % (24.0-44.0); MEAN CORPUSCULAR HEMOGLOBIN 31.6 pg (27.0-33.0); MEAN CORPUSCULAR HGB CONC 32.6 g/dl (32.0-36.5); MONO # 0.3 10^3/uL (0.0-0.8); MONO % 2.6 % (0.0-5.0); NEUTROPHILS # 9.4 10^3/uL (1.5-8.5); NEUTROPHILS % 85.9 % (36.0-66.0); PLATELET COUNT, AUTOMATED 313 10^3/uL (150-450); RED BLOOD COUNT 4.02 10^6/uL (4.00-5.40)
[2019-08-15 06:28] LABS: ALBUMIN 2.8 GM/DL (3.2-5.2); CALCIUM LEVEL 8.3 MG/DL (8.5-10.1); CREATININE FOR GFR 1.73 MG/DL (0.55-1.30); GLOMERULAR FILTRATION RATE 32.3 (>51); PHOSPHORUS LEVEL 3.1 MG/DL (2.5-4.9); POTASSIUM SERUM 4.3 MEQ/L (3.5-5.1)
[2019-08-15] MEDS: NICOTINE 14 MG/24 HR TRANSDERMAL TD SCH (09:00)
[2019-08-15] MEDS: VITAMIN D 1,000 INTERNATIONAL UNITS TABLET PO SCH (09:04)
[2019-08-15] MEDS: ASPIRIN 81 MG ENTERIC TAB PO SCH (09:04)
[2019-08-15] MEDS: HumaLOG INSULIN (NovoLOG) PER UNIT SC SCH ×2 (09:04→13:39)
[2019-08-15] MEDS: PANTOPRAZOLE 40MG TAB (PROTONIX) PO SCH (09:04)
[2019-08-15 09:05] VITALS: BP 130/68
[2019-08-15] MEDS: LEVEMIR (INSULIN DETEMIR) 1 UNITS/0.01ML SC SCH (09:05)
[2019-08-15] MEDS: ATORVASTATIN 20 MG TAB PO SCH (09:05)
[2019-08-15] MEDS: METOPROLOL TART 25 MG TABLET PO SCH (09:05)
[2019-08-15] MEDS: HEPARIN SOD (PORCINE) 5000 UNITS/ML VIAL SC SCH (09:06)
[2019-08-15 14:00] VITALS: BP 130/68
[2019-08-15] MEDS ORDERED: PANT40TA3 PO (15:11)
--- NOTE | 2019-08-15 15:31 | DS.PDOC ---
Discharge Summary General Date of Admission Aug 13, 2019 at 20:40 Date of Discharge 08/15/19 Primary Care Physician: Jayson Vasquez MD Attending Physician: Shiraz Krause MD Specialist/Consultants Involve: MICHAEL COFFMAN MD Discharge Summary ADMITTING DIAGNOSES: 1. Atypical chest pain. 2. Dyslipidemia. 3. Chronic kidney disease, stage III. 4. Hypertension. 5. Status post kidney cancer. 6. GERD. 7. Morbid obesity. 8. Obstructive sleep apnea, treated with CPAP. 9. Type 2 diabetes. 10. Hypothyroidism. 11. Tobacco use. 12. Adrenal mass, likely incidentaloma. DISCHARGE DIAGNOSES: 1. Atypical chest pain, thought to be a combination of costochondritis and incompletely treated GERD. 2. GERD, improved on Protonix versus omeprazole. 3. Peripheral edema. 4. Chronic kidney disease, stage III. 5. Type 2 diabetes. 6. Tobacco use, contemplative. 7. Obstructive sleep apnea, treated with CPAP. 8. Coronary artery disease. PROCEDURES PERFORMED DURING STAY: None. ADMISSION HISTORY: Ms. Fuentes was sent to the ER via EMS from her PCPs office due to her ongoing diffuse upper chest pain, tightness, shortness of breath for the past 2-3 weeks. Please see the admission history and physical for the remaining details. HOSPITAL COURSE: Ms. Fuentes was admitted for chest pain in the setting of multiple coronary risk factors. Fortunately her serial troponins were negative and she had no EKG changes. She did have specific areas of point tenderness noted on careful chest wall examination. Additionally her omeprazole was changed to Protonix which she was given twice daily. She reported this substantially improved her heartburn symptoms and she endorsed some of her chest pain being related to poorly controlled reflux. While in the hospital she was seen by Dr. Coffman who agreed with our assessment this was non-anginal chest pain. He felt that there was likely an element of congestive heart failure when she was admitted which might explain some of her symptoms as well. This has not been further evaluated yet. He would like to see her in his outpatient office for further evaluation and clarification of her true coronary risk and heart function. DISCHARGE CONDITION: Stable. FOLLOW-UP: Prior to discharge an appointment was scheduled with DARRICK Knott on 08/27/19 at 10:30 AM. DIET: Consistent carbohydrate. ACTIVITY: As tolerated. DISCHARGE MEDICATIONS: Please see below. ALLERGIES: Please see below. LABORATORY DATA: Please see below. IMAGING: Chest x-ray, CT angiogram of the chest DISCHARGE INSTRUCTIONS: 1. Follow-up with DARRICK Knott as scheduled. 2. Please call Dr. Coffman's office on Saturday to schedule a hospital follow-up with him. 3. Start taking Protonix instead of Prilosec. A prescription has been sent to your pharmacy. ITEMS TO FOLLOWUP ON ON OUTPATIENT: 1. The patient reports she is interested in quitting smoking, but did not want nicotine patches prescribed from the hospital. She would like to discuss this further with her PCP as she apparently had a bad experience with bupropion in the past. 2. Consider adding a reintroducing a beta carlota per Dr Coffman's consultation note. (She was given metoprolol while inpatient but this was not continued on discharge.) TIME SPENT ON DISCHARGE: Greater than 20 minutes. Vital Signs/I&Os Vital Signs Date Time Temp Pulse Resp B/P (MAP) Pulse Ox O2 Delivery O2 Flow Rate FiO2 08/15/19 14:00 97.4 70 20 130/68 (88) 98 Room Air 08/14/19 14:00 97.0 I&O- Last 24 Hours up to 6 AM 08/15/19 05:59 Intake Total 1490 ml Output Total 650 ml Balance 840 ml Laboratory Data Labs 24H Laboratory Tests 2 08/14/19 16:56: Bedside Glucose (Misc Panel) 203H 08/14/19 21:29: Bedside Glucose (Misc Panel) 249H 08/15/19 05:41: Immature Granulocyte % (Auto) 0.5, Neutrophils (%) (Auto) 85.9H, Lymphocytes (%) (Auto) 10.7L, Monocytes (%) (Auto) 2.6, Eosinophils (%) (Auto) 0.0, Basophils (%) (Auto) 0.3, Neutrophils # (Auto) 9.4H, Lymphocytes # (Auto) 1.2L, Monocytes # (Auto) 0.3, Eosinophils # (Auto) 0.0, Basophils # (Auto) 0.0, Nucleated Red Blood Cells % (auto) 0.0, Anion Gap 7L, Glomerular Filtration Rate 32.3L, Calcium Level 8.3L, Phosphorus Level 3.1, Albumin 2.8L 08/15/19 11:48: Bedside Glucose (Misc Panel) 223H CBC/BMP Laboratory Tests 08/15/19 05:41 FSBS Laboratory Tests Test 08/14/19 16:56 08/14/19 21:29 08/15/19 11:48 Range/Units Bedside Glucose (Misc Panel) 203 249 223 70-105 MG/DL Discharge Medications Scheduled Aspirin (Aspir 81) 81 Mg Tab, 81 MG PO DAILY, (Reported) Atorvastatin Calcium (Atorvastatin Calcium) 40 Mg Tablet, 40 MG PO DAILY, (Reported) Cholecalciferol (Vitamin D3) (Vitamin D3) 1,000 Unit Tab, 2,000 UNIT PO DAILY, (Reported) Insulin Degludec (Tresiba Flextouch U-200) 200 Unit/1 Ml Insuln.pen, 64 UNIT SC DAILY, (Reported) Levothyroxine Sodium (Levothyroxine Sodium) 75 Mcg Tab, 75 MCG PO DAILY, (Reported) TAKES BRAND SYNTHROID Lisinopril (Lisinopril) 2.5 Mg Tablet, 2.5 MG PO DAILY, (Reported) Pantoprazole Sodium (Pantoprazole Sodium) 40 Mg Tablet.dr, 40 MG PO DAILY Sitagliptin (Januvia) 50 Mg Tab, 50 MG PO DAILY, (Reported) Allergies Coded Allergies: morphine (Verified Allergy, Mild, itching, 08/13/19) Shiraz Krause MD Aug 15, 2019 3:31 pm
[2019-08-15] MEDS ORDERED: FLUBLOK(EGG FREE)(QUAD)INFLUENZA VACC 0.5ML SYRINGE (90682)18YRS&OLDER IM ONE (16:00)
== END 2019-08-15 16:38 | disposition home or self-care (01) ==
LOC: EDBD 14:19 → M ED 14:19 → M ED INP 20:40 → M MSPAV 22:53
PROVIDERS: ADMIT Internal Medicine; ATTEND Family Medicine
DX: R07.89 Other chest pain (principal); K21.9 Gastro-esophageal reflux disease without esophagitis; M94.0 Chondrocostal junction syndrome [Tietze]; R60.0 Localized edema; I12.9 Hypertensive chronic kidney disease with stage 1 through stage 4 chronic kidney disease, or unspecified chronic kidney disease; N18.3 Chronic kidney disease, stage 3 (moderate); E11.9 Type 2 diabetes mellitus without complications; I25.10 Atherosclerotic heart disease of native coronary artery without angina pectoris; E03.9 Hypothyroidism, unspecified; E78.49 Other hyperlipidemia; E66.01 Morbid (severe) obesity due to excess calories; F17.218 Nicotine dependence, cigarettes, with other nicotine-induced disorders; Z85.528 Personal history of other malignant neoplasm of kidney; Z79.82 Long term (current) use of aspirin; Z79.899 Other long term (current) drug therapy
CPT/HCPCS: 36415; 71045; 71275; 80048; 80061; 80069; 80076; 82550; 82553; 83690; 83880; 84443; 85025; 85027; 90682; 93005; 93041; 93306; 94760; 96372; 96374; 96375; 97161; 99285; G0008; J1940; J2930; Q9967

== ENCOUNTER 2019-11-28 19:15 | Emergency (ER) | payer OTHER ==
[~2019-11-28] VITALS: Ht 170.2 cm; Wt 127.3 kg
[~2019-11-28 19:15] MED LIST changes: +ATOR40TA75 PO; +LISI-1046 PO; +OMEP20TA9 PO; +PANT40TA3 PO; +TRES1INJ SC
[2019-11-28 19:45] LABS: BASO # 0.1 10^3/uL (0.0-0.2); BASO % 0.5 % (0.0-1.0); EOS # 0.2 10^3/uL (0.0-0.5); EOS % 1.3 % (0.0-3.0); HEMATOCRIT 41.6 % (36.0-47.0); HEMOGLOBIN 13.5 g/dl (12.0-15.5); LYMPH # 2.7 10^3/uL (1.5-5.0); LYMPH % 23.8 % (24.0-44.0); MEAN CORPUSCULAR HEMOGLOBIN 30.3 pg (27.0-33.0); MEAN CORPUSCULAR HGB CONC 32.5 g/dl (32.0-36.5); MEAN CORPUSCULAR VOLUME 93.3 fl (80.0-96.0); MONO # 0.7 10^3/uL (0.0-0.8); MONO % 6.2 % (0.0-5.0); NEUTROPHILS # 7.8 10^3/uL (1.5-8.5); NEUTROPHILS % 67.7 % (36.0-66.0); PLATELET COUNT, AUTOMATED 280 10^3/uL (150-450); RED BLOOD COUNT 4.46 10^6/uL (4.00-5.40); WHITE BLOOD COUNT 11.5 10^3/uL (4.0-10.0)
[2019-11-28 20:07] LABS: BLOOD UREA NITROGEN 23 MG/DL (7-18); CALCIUM LEVEL 8.7 MG/DL (8.5-10.1); CARBON DIOXIDE LEVEL 24 MEQ/L (21-32); CHLORIDE LEVEL 108 MEQ/L (98-107); CK-MB VALUE MASS 1.1 NG/ML (<3.6); CPK CREATINE PHOSPHOKINASE 77 U/L (26-192); GLOMERULAR FILTRATION RATE 41.3 (>51); GLUCOSE, FASTING 232 MG/DL (70-100); MB/CK RELATIVE INDEX 1.43 (< OR =4); POTASSIUM SERUM 4.4 MEQ/L (3.5-5.1); SODIUM LEVEL 139 MEQ/L (136-145); TROPONIN I < 0.02 NG/ML (< 0.10)
[2019-11-28] MEDS ORDERED: PRED20TA PO (21:21)
[2019-11-28] MEDS ORDERED: methylPREDNISolone INJ 40 MG/1 ML VIAL (J2920) IV ONE (21:30)
[2019-11-28 21:57] VITALS: BP 135/61
--- NOTE | 2019-11-29 07:53 | ECGEPIP ---
[facility] - ED Test Date: 2019-11-28 Pat Name: JUANITO HUNTER Department: Room: - Gender: Female [employer] Clerk: : 1960 Requested By: LUZ MARIA Mittal Order Number: [id number] Reading MD: Norma Chandler Measurements Intervals [place] Rate: 94 P: 22 [place]: 159 QRS: 26 QRSD: 100 T: 7 QT: 352 QTc: 441 Interpretive Statements SINUS RHYTHM LOW QRS VOLTAGE IN PRECORDIAL LEADS PRWP INCREASED RATE 08/14/19 Electronically Signed on 11-29-2019 7:53:09 EDT by Norma Chandler
--- NOTE | 2019-11-29 08:29 | REP ---
Portable chest x-ray: Single view. History: Chest pain. Comparison study: August 13, 2019. Findings: Monitoring electrodes are seen. Lungs are symmetrically aerated and clear. Pleural angles are sharp. Minimal linear fibrosis is seen in the left base. Heart size is unchanged mildly enlarged. Pulmonary vasculature is not increased. Impression: Mildly prominent heart. Linear fibrosis left base. No active disease. Electronically Signed by Ralph Sears MD 11/29/2019 08:21 A
== END 2019-11-28 22:02 | disposition home or self-care (01) ==
LOC: M ED 19:15
DX: R07.9 Chest pain, unspecified (principal); J98.4 Other disorders of lung; E11.9 Type 2 diabetes mellitus without complications; N18.9 Chronic kidney disease, unspecified; M94.0 Chondrocostal junction syndrome [Tietze]; F17.210 Nicotine dependence, cigarettes, uncomplicated; Z88.5 Allergy status to narcotic agent; Z79.82 Long term (current) use of aspirin; Z79.899 Other long term (current) drug therapy
CPT/HCPCS: 71045; 80048; 82550; 82553; 85025; 93005; 93041; 94760; 96374; 99284; J2920

== ENCOUNTER → 2020-03-21 | Outpatient (REF) | payer OTHER ==
[~2020-03-21] MED LIST changes: -LISI-1046 PO; +LISI2.5T2 PO; +PRED20TA PO
[2020-03-21 16:23] LABS: BASO # 0.1 10^3/uL (0.0-0.2); BASO % 0.6 % (0.0-1.0); EOS # 0.2 10^3/uL (0.0-0.5); EOS % 1.8 % (0.0-3.0); HEMATOCRIT 43.9 % (36.0-47.0); HEMOGLOBIN 14.1 g/dl (12.0-15.5); LYMPH # 2.2 10^3/uL (1.5-5.0); LYMPH % 17.9 % (24.0-44.0); MEAN CORPUSCULAR HEMOGLOBIN 30.8 pg (27.0-33.0); MEAN CORPUSCULAR HGB CONC 32.1 g/dl (32.0-36.5); MEAN CORPUSCULAR VOLUME 95.9 fl (80.0-96.0); MONO # 0.9 10^3/uL (0.0-0.8); MONO % 7.7 % (0.0-5.0); NEUTROPHILS # 8.6 10^3/uL (1.5-8.5); NEUTROPHILS % 71.5 % (36.0-66.0); PLATELET COUNT, AUTOMATED 284 10^3/uL (150-450); RED BLOOD COUNT 4.58 10^6/uL (4.00-5.40)
[2020-03-21 16:36] LABS: BILIRUBIN,TOTAL 0.6 MG/DL (0.2-1.0); CHOLESTEROL RISK RATIO 4.375 (<5); CREATININE FOR GFR 1.57 MG/DL (0.55-1.30); FREE T4 1.53 NG/DL (0.76-1.46); POTASSIUM SERUM 4.9 MEQ/L (3.5-5.1); THYROID STIMULATING HORMONE 1.37 uIU/ML (0.358-3.740)
[2020-03-21 16:43] LABS: HEMOGLOBIN A1c 11.2 %
== END ==
LOC: M SFHCCLAY 10:23
PROVIDERS: ATTEND Nurse Practitioner Family
DX: I10 Essential (primary) hypertension (principal); E03.9 Hypothyroidism, unspecified; E11.8 Type 2 diabetes mellitus with unspecified complications

== ENCOUNTER 2020-05-20 12:20 | Emergency (ER) | payer OTHER ==
[~2020-05-20] VITALS: Ht 170.2 cm; Wt 131.0 kg
[~2020-05-20 12:20] MED LIST changes: -ASPI81TA85 PO; +ASPI81TA86 PO; +PANT40TA29 PO; -PANT40TA3 PO
[2020-05-20] MEDS ORDERED: TRUL0.5I (12:29)
[2020-05-20] MEDS ORDERED: GI COCKTAIL 50ML BTL(HYOSCYAMINE/MAALOX/LIDOCAINE VISCOUS)(1:3:1) PO ONE (13:00)
--- NOTE | 2020-05-20 13:09 | REPVR ---
PROCEDURE INFORMATION: Exam: XR Chest, 1 View Exam date and time: 05/20/2020 12:52 PM Age: 60 years old Clinical indication: Chest pain; Type not specified TECHNIQUE: Imaging protocol: XR of the chest Views: 1 view. COMPARISON: [facility] PORTABLE CHEST X-RAY 11/28/2019 7:48 PM FINDINGS: Lungs: Unremarkable. No consolidation. Pleural space: Unremarkable. No pleural effusion. No pneumothorax. Heart/Mediastinum: Unremarkable. No cardiomegaly. Diaphragm: Mild elevation of the left hemidiaphragm. Bones/joints: Unremarkable. IMPRESSION: No acute cardiopulmonary abnormality. Electronically signed by: Vy Box On 05/20/2020 13:08:49 PM
[2020-05-20 13:41] LABS: BASO # 0.1 10^3/uL (0.0-0.2); BASO % 0.5 % (0.0-1.0); EOS # 0.1 10^3/uL (0.0-0.5); EOS % 1.2 % (0.0-3.0); HEMOGLOBIN 14.1 g/dl (12.0-15.5); LYMPH # 2.1 10^3/uL (1.5-5.0); LYMPH % 20.8 % (24.0-44.0); MEAN CORPUSCULAR HEMOGLOBIN 32.1 pg (27.0-33.0); MEAN CORPUSCULAR HGB CONC 33.6 g/dl (32.0-36.5); MEAN CORPUSCULAR VOLUME 95.7 fl (80.0-96.0); MONO # 0.6 10^3/uL (0.0-0.8); MONO % 6.1 % (0.0-5.0); NEUTROPHILS # 7.3 10^3/uL (1.5-8.5); NEUTROPHILS % 70.8 % (36.0-66.0); PLATELET COUNT, AUTOMATED 272 10^3/uL (150-450); RED BLOOD COUNT 4.39 10^6/uL (4.00-5.40); WHITE BLOOD COUNT 10.3 10^3/uL (4.0-10.0)
[2020-05-20 14:10] LABS: BLOOD UREA NITROGEN 16 MG/DL (7-18); CARBON DIOXIDE LEVEL 27 MEQ/L (21-32); CHLORIDE LEVEL 105 MEQ/L (98-107); CK-MB VALUE MASS < 1.0 NG/ML (<3.6); CPK CREATINE PHOSPHOKINASE 43 U/L (26-192); CREATININE FOR GFR 1.41 MG/DL (0.55-1.30); GLOMERULAR FILTRATION RATE 40.8 (>51); GLUCOSE, FASTING 197 MG/DL (70-100); MB/CK RELATIVE INDEX 2.33 (< OR =4); POTASSIUM SERUM 4.6 MEQ/L (3.5-5.1); SODIUM LEVEL 138 MEQ/L (136-145); TROPONIN I < 0.02 NG/ML (< 0.10)
[2020-05-20] MEDS ORDERED: SUCR1SS PO (14:17)
[2020-05-20 14:31] VITALS: BP 124/63
--- NOTE | 2020-06-02 15:19 | ECGEPIP ---
[facility] - ED Test Date: 2020-05-20 Pat Name: JUANITO HUNTER Department: Room: - Gender: Female Pulmonary Disease Specialist: : 1960 Requested By: Norma Chandler Order Number: [id number] Reading MD: Norma Chandler Measurements Intervals [place] Rate: 87 P: 24 [place]: 160 QRS: 19 QRSD: 96 T: 10 QT: 362 QTc: 437 Interpretive Statements SINUS RHYTHM LOW QRS VOLTAGE IN PRECORDIAL LEADS BORDERLINE ECG PROP SEE SCANNED DOWNTIME REPORT
== END 2020-05-20 14:34 | disposition home or self-care (01) ==
LOC: M ED 12:20
DX: K21.0 Gastro-esophageal reflux disease with esophagitis (principal); E11.9 Type 2 diabetes mellitus without complications; I10 Essential (primary) hypertension; N18.4 Chronic kidney disease, stage 4 (severe); E78.5 Hyperlipidemia, unspecified; E03.9 Hypothyroidism, unspecified; F17.200 Nicotine dependence, unspecified, uncomplicated; Z88.6 Allergy status to analgesic agent

== ENCOUNTER → 2020-10-07 | Outpatient (CLI) | payer OTHER ==
[~2020-10-07] MED LIST changes: -CLIN150C14 PO; +CLIN150C15 PO; +SUCR1SS PO; +TRUL0.5I
--- NOTE | 2020-10-09 08:30 | REP ---
INDICATION: CYST OF KIDNEY PT HAVING LABS FIRST COMPARISON: None TECHNIQUE: Real time orosco scale ultrasound examination using curved array transducer. FINDINGS: Patient gives a history of right nephrectomy (1997). Within the right renal fossa is a 4.4 x 4.2 x 4.4 cm solid mass which may be adrenal in nature, but appears relatively similar to CT findings dating back through 2016. Left kidney is normal in size, echogenicity, and reniform shape without hydronephrosis, nephrolithiasis, or cystic lesion. Subtle contour cortical lobulation versus mass cannot be excluded to the upper pole region. Left kidney measures 11.8 x 5.8 x 5.9 sent Bladder is collapsed and grossly unremarkable. IMPRESSION: 1. History of prior right nephrectomy. Left kidney is relatively normal in appearance although subtle upper pole rounded cortical lesion versus lobulation cannot be excluded. Consider pre and postcontrast CT of the abdomen for further investigation. 2. 4.4 cm mass in the right renal fossa consistent with findings on prior CT dated 2019 and 2015 which demonstrated central bulky fat suggesting angiolipoma <Electronically signed by Cb Cárdenas > 10/09/20 [id number]
== END ==
LOC: M RAD 14:02
PROVIDERS: ATTEND Nurse Practitioner Family
DX: N28.1 Cyst of kidney, acquired (principal); D63.1 Anemia in chronic kidney disease; N18.9 Chronic kidney disease, unspecified; Z85.528 Personal history of other malignant neoplasm of kidney; Z90.5 Acquired absence of kidney

== ENCOUNTER → 2020-10-07 | Outpatient (CLI) | payer OTHER ==
[2020-10-07 16:24] LABS: ALBUMIN 3.2 GM/DL (3.2-5.2); BILIRUBIN,TOTAL 0.9 MG/DL (0.2-1.0); CALCIUM LEVEL 8.8 MG/DL (8.5-10.1); CHOLESTEROL RISK RATIO 3.388 (<5); CREATININE FOR GFR 1.51 MG/DL (0.55-1.30); FREE T4 1.53 NG/DL (0.76-1.46); GLOMERULAR FILTRATION RATE 37.7 (>51); POTASSIUM SERUM 4.9 MEQ/L (3.5-5.1); THYROID STIMULATING HORMONE 2.01 uIU/ML (0.358-3.740); TOTAL PROTEIN 6.8 GM/DL (6.4-8.2)
[2020-10-07 16:24] LABS: BASO # 0.1 10^3/uL (0.0-0.2); BASO % 0.6 % (0.0-1.0); EOS # 0.1 10^3/uL (0.0-0.5); HEMOGLOBIN 14.8 g/dl (12.0-15.5); LYMPH # 2.8 10^3/uL (1.5-5.0); LYMPH % 22.4 % (24.0-44.0); MEAN CORPUSCULAR HGB CONC 32.2 g/dl (32.0-36.5); MEAN CORPUSCULAR VOLUME 96.4 fl (80.0-96.0); MONO # 0.8 10^3/uL (0.0-0.8); MONO % 6.2 % (0.0-5.0); NEUTROPHILS # 8.6 10^3/uL (1.5-8.5); NEUTROPHILS % 69.4 % (36.0-66.0); PLATELET COUNT, AUTOMATED 311 10^3/uL (150-450); RED BLOOD COUNT 4.77 10^6/uL (4.00-5.40); WHITE BLOOD COUNT 12.3 10^3/uL (4.0-10.0)
[2020-10-07 18:53] LABS: HEMOGLOBIN A1c 8.7 %
== END ==
LOC: M LAB 14:08
PROVIDERS: ATTEND Nurse Practitioner Family
DX: I10 Essential (primary) hypertension (principal); E11.8 Type 2 diabetes mellitus with unspecified complications

== ENCOUNTER → 2020-10-21 | Outpatient (REF) | payer OTHER | LOC: M LAB REF 16:53 | PROVIDERS: ATTEND Nurse Practitioner Family | DX: N39.0 Urinary tract infection, site not specified (principal) ==

== ENCOUNTER → 2020-11-09 | Outpatient (CLI) | payer OTHER ==
[~2020-11-09] MED LIST changes: +ISOVUE-370 76% 100ML VIAL As Ordered ONE
--- NOTE | 2020-11-09 10:10 | REP ---
INDICATION: NEOPLASM LT KIDNEY. COMPARISON: 10/09/2016 TECHNIQUE: Axial contrast-enhanced images from the lung bases to the pubic symphysis using 100 cc Isovue 370 intravenous contrast material. Coronal and sagittal reformations obtained. This CT examination was performed using the following dose reduction techniques: Automated exposure control, adjustment of mA and/or kv according to the patient's size, and the use of iterative reconstruction technique. FINDINGS: Liver, spleen, pancreas, gallbladder, and left adrenal gland are normal. 4.5 cm mass in the right renal fossa containing soft tissue and bulk fat most compatible with benign adrenal myelolipoma. Evidence for prior right nephrectomy. There appears to be a new 3.6 cm enhancing mass along the medial upper pole of the left kidney concerning for neoplasm unless proven otherwise. The enteric system including stomach, small, and large bowel appears normal. No evidence for obstruction or acute inflammatory process. Normal terminal ileum and appendix are identified in the right lower quadrant. Pelvis demonstrates normal bladder and age-appropriate uterus/adnexa. No ascites. No free air. No intraperitoneal or retroperitoneal adenopathy. Abdominal aorta and vasculature appear normal. Musculoskeletal structures are intact and without acute osseous abnormality. IMPRESSION: 1. Suspicious 3.6 cm enhancing lesion in the medial upper pole left kidney. Findings suggest neoplasm unless proven otherwise. No associated adjacent perinephric inflammatory stranding or adenopathy. 2. Nonacute findings as above. <Electronically signed by Cb Cárdenas > 11/09/20 1005
== END ==
LOC: M RAD 07:23
PROVIDERS: ATTEND Nurse Practitioner Family
DX: D49.512 Neoplasm of unspecified behavior of left kidney (principal)
CPT/HCPCS: 74177; Q9967

== ENCOUNTER → 2020-11-24 | Outpatient (CLI) | payer OTHER ==
[~2020-11-24] MED LIST changes: -ISOVUE-370 76% 100ML VIAL As Ordered ONE
--- NOTE | 2020-11-24 09:31 | REP ---
INDICATION: MALIGNANT NEOPLASM OF LEFT KIDNEY, EXCEPT RENAL PELVIS COMPARISON: 05/20/2020 TECHNIQUE: PA and lateral. FINDINGS: The mediastinum and cardiac silhouette are normal. The lung silver are clear and without acute consolidation, effusion, or pneumothorax. The skeletal structures are intact and normal. IMPRESSION: No acute cardiopulmonary process. <Electronically signed by Cb Cárdenas > 11/24/20 0928
[2020-11-24 09:49] LABS: BASO # 0.1 10^3/uL (0.0-0.2); BASO % 0.7 % (0.0-1.0); EOS # 0.1 10^3/uL (0.0-0.5); EOS % 1.1 % (0.0-3.0); HEMATOCRIT 47.1 % (36.0-47.0); LYMPH # 2.8 10^3/uL (1.5-5.0); MEAN CORPUSCULAR HEMOGLOBIN 30.9 pg (27.0-33.0); MEAN CORPUSCULAR HGB CONC 31.8 g/dl (32.0-36.5); MEAN CORPUSCULAR VOLUME 97.1 fl (80.0-96.0); MONO # 0.9 10^3/uL (0.0-0.8); NEUTROPHILS # 8.2 10^3/uL (1.5-8.5); NEUTROPHILS % 67.7 % (36.0-66.0); PLATELET COUNT, AUTOMATED 336 10^3/uL (150-450); RED BLOOD COUNT 4.85 10^6/uL (4.00-5.40); WHITE BLOOD COUNT 12.1 10^3/uL (4.0-10.0)
[2020-11-24 09:59] LABS: INR 1.05; PROTHROMBIN TIME 13.9 SECONDS (12.5-14.3)
[2020-11-24 10:00] LABS: PARTIAL THROMBOPLASTIN TIME 27.9 SECONDS (24.2-38.5)
[2020-11-24 10:19] LABS: ALBUMIN 3.4 GM/DL (3.2-5.2); BILIRUBIN,DIRECT 0.2 MG/DL (0.0-0.2); BILIRUBIN,TOTAL 0.7 MG/DL (0.2-1.0); CALCIUM LEVEL 9.1 MG/DL (8.5-10.1); CREATININE FOR GFR 1.7 MG/DL (0.55-1.30); GLOMERULAR FILTRATION RATE 32.9 (>51); POTASSIUM SERUM 4.4 MEQ/L (3.5-5.1); TOTAL PROTEIN 7.4 GM/DL (6.4-8.2)
== END ==
LOC: M LAB 08:47
PROVIDERS: ATTEND Urology
DX: C64.2 Malignant neoplasm of left kidney, except renal pelvis (principal)

== ENCOUNTER → 2021-01-04 | Outpatient (CLI) | payer OTHER | LOC: M LABSMTC 10:56 | PROVIDERS: ATTEND Urology | DX: Z20.822 Contact with and (suspected) exposure to COVID-19 (principal) ==

== ENCOUNTER → 2021-04-06 | Outpatient (REF) | payer OTHER ==
[~2021-04-06] MED LIST changes: +OMEP20TA2 PO; -OMEP20TA9 PO
[2021-04-06 16:20] LABS: BASO # 0.1 10^3/uL (0.0-0.2); BASO % 0.5 % (0.0-1.0); EOS # 0.2 10^3/uL (0.0-0.5); EOS % 1.4 % (0.0-3.0); HEMATOCRIT 45.3 % (36.0-47.0); HEMOGLOBIN 14.8 g/dl (12.0-15.5); LYMPH # 2.4 10^3/uL (1.5-5.0); LYMPH % 22.4 % (24.0-44.0); MEAN CORPUSCULAR HEMOGLOBIN 31.1 pg (27.0-33.0); MEAN CORPUSCULAR HGB CONC 32.7 g/dl (32.0-36.5); MEAN CORPUSCULAR VOLUME 95.2 fl (80.0-96.0); MONO # 0.8 10^3/uL (0.0-0.8); MONO % 7.1 % (2.0-8.0); NEUTROPHILS # 7.4 10^3/uL (1.5-8.5); NEUTROPHILS % 68.1 % (36.0-66.0); PLATELET COUNT, AUTOMATED 266 10^3/uL (150-450); RED BLOOD COUNT 4.76 10^6/uL (4.00-5.40); WHITE BLOOD COUNT 10.8 10^3/uL (4.0-10.0)
[2021-04-06 16:22] LABS: APPEARANCE, URINE HAZY (CLEAR); BACTERIA, URINE AUTO NEGATIVE (NEGATIVE); BILIRUBIN, URINE AUTO NEGATIVE (NEGATIVE); BLOOD, URINE BLOOD 1+ (NEGATIVE); COLOR, URINE YELLOW (YELLOW); GLUCOSE, URINE (UA) AUTO NEGATIVE (NEGATIVE); KETONE, URINE AUTO NEGATIVE (NEGATIVE); LEUKOCYTE ESTERASE, URINE AUTO NEGATIVE (NEGATIVE); MUCUS, URINE SMALL (NEGATIVE); NITRITE, URINE AUTO NEGATIVE (NEGATIVE); PROTEIN, URINE AUTO 2+ mg/dL (NEGATIVE); RBC, URINE AUTO 0 /HPF (0-3); SPECIFIC GRAVITY URINE AUTO 1.017 (1.002-1.035); SQUAMOUS EPITHELIAL CELL UR AU 3 /HPF (0-6); UROBILINOGEN, URINE AUTO 0.2 mg/dL (0.0-2.0); WBC, URINE AUTO 2 /HPF (0-3)
[2021-04-06 16:44] LABS: CALCIUM LEVEL 8.7 MG/DL (8.5-10.1); CREATININE FOR GFR 1.44 MG/DL (0.55-1.30); GLOMERULAR FILTRATION RATE 39.7 (>51); POTASSIUM SERUM 5.2 MEQ/L (3.5-5.1)
== END ==
LOC: M SFHCCLAY 10:35
PROVIDERS: ATTEND Nurse Practitioner Family
DX: N18.4 Chronic kidney disease, stage 4 (severe) (principal); C64.2 Malignant neoplasm of left kidney, except renal pelvis

== ENCOUNTER → 2021-04-12 | Outpatient (REF) | payer OTHER ==
[2021-04-12 14:00] LABS: CALCIUM LEVEL 8.6 MG/DL (8.5-10.1); CREATININE FOR GFR 1.48 MG/DL (0.55-1.30); GLOMERULAR FILTRATION RATE 38.4 (>51); POTASSIUM SERUM 4.7 MEQ/L (3.5-5.1)
== END ==
LOC: M SFHCCLAY 07:12
PROVIDERS: ATTEND Nurse Practitioner Family
DX: C64.2 Malignant neoplasm of left kidney, except renal pelvis (principal)

== ENCOUNTER → 2021-04-13 | Outpatient (REF) | payer OTHER | LOC: M LAB REF 17:33 | PROVIDERS: ATTEND Nurse Practitioner Family | DX: E83.42 Hypomagnesemia (principal) ==

== ENCOUNTER → 2021-05-26 | Outpatient (REF) | payer OTHER ==
[~2021-05-26] MED LIST changes: -CLIN150C15 PO; +CLIN150C17 PO; -LISI2.5T2 PO; +LISI2.5T9 PO
== END ==
LOC: M LAB REF 13:12
PROVIDERS: ATTEND Nurse Practitioner Family
DX: E83.42 Hypomagnesemia (principal)

== ENCOUNTER → 2021-07-12 | Outpatient (REF) | payer OTHER | LOC: M LAB REF 11:27 | PROVIDERS: ATTEND Nurse Practitioner Family | DX: J06.9 Acute upper respiratory infection, unspecified (principal) ==

== ENCOUNTER → 2021-08-15 | Outpatient (CLI) | payer OTHER ==
[2021-08-15 09:33] LABS: HEMOGLOBIN A1c 7.1 %
== END ==
LOC: M LAB 08:13
PROVIDERS: ATTEND Nurse Practitioner Family
DX: E11.8 Type 2 diabetes mellitus with unspecified complications (principal)

== ENCOUNTER → 2021-09-21 | Outpatient (REF) | payer OTHER | LOC: M LAB REF 16:58 | PROVIDERS: ATTEND Nurse Practitioner Family | DX: E83.42 Hypomagnesemia (principal) ==

== ENCOUNTER → 2021-10-09 | Outpatient (CLI) | payer OTHER ==
[~2021-10-09] MED LIST changes: +ASPI81TA26 PO; +CALC600T60 PO; +COLA100C5 PO; +D31000TA2 PO; -LISI10TA15 PO; +LISI10TA24 PO; -LISI20TA20 PO; +LISI20TA37 PO; +LORA-243 PO; -TRUL0.5I; +TRUL0.5I SC
== END ==
LOC: M LABSMTC 10:22
PROVIDERS: ATTEND Anesthesiology
DX: Z01.812 Encounter for preprocedural laboratory examination (principal); Z20.822 Contact with and (suspected) exposure to COVID-19

== ENCOUNTER 2021-10-13 07:27 | Day surgery (SDC) | payer OTHER ==
[~2021-10-13] VITALS: Ht 172.7 cm; Wt 128.4 kg
[2021-10-13] MEDS ORDERED: NS 1,000 ML IV ONE (08:20)
[2021-10-13] MEDS ORDERED: propofoL 200 MG/20 ML VIAL As Ordered ONE ×6 (08:27→09:28)
[2021-10-13] MEDS ORDERED: LIDOCAINE 2% 100MG/5ML SDV (FOR ANES.) As Ordered ONE (08:28)
[2021-10-13 10:16] VITALS: BP 113/64
== END 2021-10-13 10:21 | disposition home or self-care (01) ==
LOC: M OPP 07:27
PROVIDERS: ATTEND Internal Medicine Gastroenterology
DX: Z12.11 Encounter for screening for malignant neoplasm of colon (principal); Z86.010 Personal history of colon polyps; D17.5 Benign lipomatous neoplasm of intra-abdominal organs; K63.5 Polyp of colon; K62.1 Rectal polyp; Z79.82 Long term (current) use of aspirin; Z79.899 Other long term (current) drug therapy; Z88.5 Allergy status to narcotic agent; Z87.891 Personal history of nicotine dependence

== ENCOUNTER → 2022-03-23 | Outpatient (REF) | payer OTHER ==
[~2022-03-23] MED LIST changes: -D31000TA2 PO; +VITA100093 PO
== END ==
LOC: M LAB REF 16:39
PROVIDERS: ATTEND Nurse Practitioner Family
DX: N39.0 Urinary tract infection, site not specified (principal)

== ENCOUNTER → 2022-03-23 | Outpatient (REF) | payer OTHER ==
[2022-03-23 17:09] LABS: HEMOGLOBIN A1c 8.1 %
[2022-03-23 17:32] LABS: ALBUMIN 3.2 GM/DL (3.2-5.2); BILIRUBIN,TOTAL 0.7 MG/DL (0.2-1.0); CALCIUM LEVEL 8.9 MG/DL (8.8-10.2); CHOLESTEROL RISK RATIO 3.435 (<5); CREATININE FOR GFR 1.6 MG/DL (0.55-1.30); FREE T4 1.43 NG/DL (0.76-1.46); POTASSIUM SERUM 4.5 MEQ/L (3.5-5.1); THYROID STIMULATING HORMONE 5.72 uIU/ML (0.358-3.740); TOTAL PROTEIN 6.6 GM/DL (6.4-8.2)
== END ==
LOC: M SFHCCLAY 16:40
PROVIDERS: ATTEND Nurse Practitioner Family
DX: R07.89 Other chest pain (principal); C64.2 Malignant neoplasm of left kidney, except renal pelvis; I13.10 Hypertensive heart and chronic kidney disease without heart failure, with stage 1 through stage 4 chronic kidney disease, or unspecified chronic kidney disease; K21.9 Gastro-esophageal reflux disease without esophagitis; E11.42 Type 2 diabetes mellitus with diabetic polyneuropathy; M25.551 Pain in right hip; M25.552 Pain in left hip; E03.9 Hypothyroidism, unspecified; E66.9 Obesity, unspecified

== ENCOUNTER → 2022-10-24 | Outpatient (REF) | payer OTHER ==
[2022-10-24 12:18] LABS: HEMOGLOBIN A1c 8.1 % (4.0-6.0)
[2022-10-24 12:51] LABS: ALBUMIN 3.4 G/DL (3.2-5.2); BILIRUBIN,TOTAL 0.9 MG/DL (0.3-1.2); CALCIUM LEVEL 9.2 MG/DL (8.3-10.6); CREATININE FOR GFR 1.77 MG/DL (0.55-1.30); FREE T4 1.34 NG/DL (0.89-1.76); GLOMERULAR FILTRATION RATE 31.2 (>45); POTASSIUM SERUM 4.3 MMOL/L (3.5-5.1)
[2022-10-24 12:52] LABS: THYROID STIMULATING HORMONE 6.832 uIU/ML (0.55-4.78)
== END ==
LOC: M SFHCCLAY 09:25
PROVIDERS: ATTEND Nurse Practitioner Family
DX: C64.2 Malignant neoplasm of left kidney, except renal pelvis (principal); E03.9 Hypothyroidism, unspecified

== ENCOUNTER → 2022-11-06 | Outpatient (CLI) | payer OTHER | LOC: M EKG 10:38 | PROVIDERS: ATTEND Nurse Practitioner Family | DX: R07.9 Chest pain, unspecified (principal) ==

== ENCOUNTER → 2023-02-08 | Outpatient (REF) | payer OTHER ==
[~2023-02-08] MED LIST changes: +CALC1CAP31 PO; +FURO20TA2 PO; +MAGN400C PO; +PREG25CA PO
== END ==
LOC: M LAB REF 17:02
PROVIDERS: ATTEND Nurse Practitioner Family
DX: N39.0 Urinary tract infection, site not specified (principal)

== ENCOUNTER → 2023-04-24 | Outpatient (REF) | payer OTHER ==
[2023-04-24 18:34] LABS: THYROID STIMULATING HORMONE 4.702 uIU/ML (0.55-4.78)
[2023-04-24 18:35] LABS: ALBUMIN 3.2 G/DL (3.2-5.2); ALKALINE PHOSPHATASE 112 U/L (46-116); ALT/SGPT 12 U/L (7.0-40); AST/SGOT < 8 U/L (<34); BILIRUBIN,TOTAL 0.7 MG/DL (0.3-1.2); BLOOD UREA NITROGEN 23 MG/DL (9-23); CALCIUM LEVEL 8.5 MG/DL (8.3-10.6); CARBON DIOXIDE LEVEL 27 MMOL/L (20-31); CHLORIDE LEVEL 107 MMOL/L (98-107); CHOLESTEROL LEVEL 91 MG/DL (<200); CREATININE FOR GFR 1.71 MG/DL (0.55-1.30); FREE T4 1.14 NG/DL (0.89-1.76); GLOMERULAR FILTRATION RATE 32.3 (>45); GLUCOSE, FASTING 163 MG/DL (74-106); HDL CHOLESTEROL 32.5 MG/DL (>40); LDL CHOLESTEROL 30.5 MG/DL (<100); NON-HDL-C 58.5 MG/DL; POTASSIUM SERUM 5.2 MMOL/L (3.5-5.1); SODIUM LEVEL 140 MMOL/L (136-145); TOTAL PROTEIN 6.6 G/DL (5.7-8.2); TRIGLYCERIDES LEVEL 140 MG/DL (<150)
[2023-04-24 19:26] LABS: HEMOGLOBIN A1c 8.6 % (4.0-6.0)
== END ==
LOC: M SFHCCLAY 08:50
PROVIDERS: ATTEND Nurse Practitioner Family
DX: C64.2 Malignant neoplasm of left kidney, except renal pelvis (principal); E03.9 Hypothyroidism, unspecified; R07.89 Other chest pain

== ENCOUNTER → 2023-05-06 | Outpatient (CLI) | payer OTHER | LOC: M WHC 08:20 | PROVIDERS: ATTEND Nurse Practitioner Family | DX: Z12.31 Encounter for screening mammogram for malignant neoplasm of breast (principal) ==

== ENCOUNTER 2023-05-13 20:56 | Emergency (ER) | payer OTHER ==
[~2023-05-13] VITALS: Ht 170.2 cm; Wt 133.2 kg
[2023-05-13 21:41] LABS: BASO # 0.1 10^3/uL (0.0-0.2); BASO % 0.7 % (0.0-1.0); EOS # 0.2 10^3/uL (0.0-0.5); HEMOGLOBIN 12.9 g/dl (12.0-15.5); LYMPH # 2.1 10^3/uL (1.5-5.0); LYMPH % 21.3 % (24.0-44.0); MEAN CORPUSCULAR HGB CONC 32.3 g/dl (32.0-36.5); MONO # 0.7 10^3/uL (0.0-0.8); MONO % 6.7 % (2.0-8.0); NEUTROPHILS # 6.8 10^3/uL (1.5-8.5); NEUTROPHILS % 68.8 % (36.0-66.0); PLATELET COUNT, AUTOMATED 282 10^3/uL (150-450); WHITE BLOOD COUNT 9.9 10^3/uL (4.0-10.0)
[2023-05-13 21:58] LABS: LIPASE 35 U/L (12-53)
[2023-05-13 22:01] LABS: ALKALINE PHOSPHATASE 115 U/L (46-116); ALT/SGPT 15 U/L (7.0-40); AST/SGOT 9 U/L (<34); BILIRUBIN,DIRECT 0.3 MG/DL (<0.4); BILIRUBIN,TOTAL 0.8 MG/DL (0.3-1.2); BLOOD UREA NITROGEN 24 MG/DL (9-23); CARBON DIOXIDE LEVEL 26 MMOL/L (20-31); CHLORIDE LEVEL 107 MMOL/L (98-107); CK-MB VALUE MASS < 1.0 NG/ML (<3.6); CPK CREATINE PHOSPHOKINASE 67 U/L (34-145); CREATININE FOR GFR 1.85 MG/DL (0.55-1.30); GLOMERULAR FILTRATION RATE 29.5 (>45); GLUCOSE, FASTING 198 MG/DL (74-106); MB/CK RELATIVE INDEX 1.49 (< OR =4); POTASSIUM SERUM 4.3 MMOL/L (3.5-5.1); SODIUM LEVEL 139 MMOL/L (136-145); TOTAL PROTEIN 6.5 G/DL (5.7-8.2)
[2023-05-13 22:56] LABS: CK-MB VALUE MASS < 1.0 NG/ML (<3.6); CPK CREATINE PHOSPHOKINASE 71 U/L (34-145)
[2023-05-13] MEDS ORDERED: MAALOX 30 ML SUSP *UDC PO ONE (23:00)
[2023-05-14] MEDS ORDERED: PEPC1TAB5 PO (00:29)
[2023-05-14] MEDS ORDERED: CARA1TAB6 PO (00:29)
[2023-05-14 00:48] VITALS: BP 142/65; TEMP 96.9; O2SAT 100
== END 2023-05-14 00:50 | disposition home or self-care (01) ==
LOC: M ED 20:56
DX: K21.9 Gastro-esophageal reflux disease without esophagitis (principal); I10 Essential (primary) hypertension; N18.9 Chronic kidney disease, unspecified; E11.9 Type 2 diabetes mellitus without complications; Z79.84 Long term (current) use of oral hypoglycemic drugs; Z79.899 Other long term (current) drug therapy; Z88.5 Allergy status to narcotic agent; Z79.82 Long term (current) use of aspirin; Z79.811 Long term (current) use of aromatase inhibitors

== ENCOUNTER → 2023-06-06 | Outpatient (CLI) | payer OTHER ==
[~2023-06-06] MED LIST changes: +CARA1TAB6 PO; +PEPC1TAB5 PO
== END ==
LOC: M WHC 07:58
PROVIDERS: ATTEND Nurse Practitioner Family
DX: R92.8 Other abnormal and inconclusive findings on diagnostic imaging of breast (principal)

== ENCOUNTER → 2023-10-28 | Outpatient (REF) | payer OTHER ==
[2023-10-28 18:41] LABS: BASO # 0.1 10^3/uL (0.0-0.2); BASO % 0.5 % (0.0-1.0); EOS # 0.1 10^3/uL (0.0-0.5); EOS % 1.1 % (0.0-3.0); HEMATOCRIT 38.4 % (36.0-47.0); HEMOGLOBIN 12.3 g/dl (12.0-15.5); LYMPH % 17.2 % (24.0-44.0); MEAN CORPUSCULAR HEMOGLOBIN 29.5 pg (27.0-33.0); MEAN CORPUSCULAR VOLUME 92.1 fl (80.0-96.0); MONO # 0.7 10^3/uL (0.0-0.8); MONO % 6.2 % (2.0-8.0); NEUTROPHILS # 8.6 10^3/uL (1.5-8.5); NEUTROPHILS % 74.3 % (36.0-66.0); PLATELET COUNT, AUTOMATED 310 10^3/uL (150-450); RED BLOOD COUNT 4.17 10^6/uL (4.00-5.40); WHITE BLOOD COUNT 11.6 10^3/uL (4.0-10.0)
[2023-10-28 19:08] LABS: BILIRUBIN,TOTAL 0.7 MG/DL (0.3-1.2); CHOLESTEROL RISK RATIO 3.02 (<5); CREATININE FOR GFR 1.72 MG/DL (0.55-1.30); FREE T4 1.36 NG/DL (0.89-1.76); GLOMERULAR FILTRATION RATE 32.1 (>45); HDL CHOLESTEROL 33.4 MG/DL (>40); LDL CHOLESTEROL 39.4 MG/DL (<100); MAGNESIUM LEVEL 1.7 MG/DL (1.8-2.4); NON-HDL-C 67.6 MG/DL; POTASSIUM SERUM 4.6 MMOL/L (3.5-5.1); THYROID STIMULATING HORMONE 4.465 uIU/ML (0.55-4.78)
[2023-10-28 19:21] LABS: HEMOGLOBIN A1c 8.2 % (4.0-6.0)
== END ==
LOC: M SFHCCLAY 11:11
PROVIDERS: ATTEND Nurse Practitioner Family
DX: C64.2 Malignant neoplasm of left kidney, except renal pelvis (principal); E11.8 Type 2 diabetes mellitus with unspecified complications; N18.4 Chronic kidney disease, stage 4 (severe); E03.9 Hypothyroidism, unspecified; R07.89 Other chest pain; E11.9 Type 2 diabetes mellitus without complications

== ENCOUNTER → 2023-12-25 | Outpatient (REF) | payer OTHER ==
[2023-12-25 18:25] LABS: CALCIUM LEVEL 8.7 MG/DL (8.3-10.6); CREATININE FOR GFR 1.74 MG/DL (0.55-1.30); GLOMERULAR FILTRATION RATE 31.7 (>45); MAGNESIUM LEVEL 1.8 MG/DL (1.8-2.4); POTASSIUM SERUM 4.9 MMOL/L (3.5-5.1)
== END ==
LOC: M SFHCCLAY 10:58
PROVIDERS: ATTEND Nurse Practitioner Family
DX: R25.2 Cramp and spasm (principal)

== ENCOUNTER → 2023-12-27 | Outpatient (REF) | payer OTHER ==
[2023-12-27 18:20] LABS: PERCENT SATURATION 7.6 % (13.2-45.0)
[2023-12-27 18:21] LABS: FERRITIN 14.4 NG/ML (7.3-270.7)
== END ==
LOC: M LAB REF 17:14
PROVIDERS: ATTEND Nurse Practitioner Family
DX: D50.9 Iron deficiency anemia, unspecified (principal)

== ENCOUNTER → 2024-01-03 | Outpatient (CLI) | payer OTHER | LOC: M RAD 10:21 | PROVIDERS: ATTEND Nurse Practitioner Family | DX: Z12.2 Encounter for screening for malignant neoplasm of respiratory organs (principal); Z87.891 Personal history of nicotine dependence ==

== ENCOUNTER 2024-02-10 02:58 | Emergency (ER) | payer OTHER ==
[~2024-02-10] VITALS: Ht 175.3 cm; Wt 122.7 kg
[2024-02-10 03:22] LABS: BASO # 0.1 10^3/uL (0.0-0.2); BASO % 0.7 % (0.0-1.0); EOS # 0.1 10^3/uL (0.0-0.5); EOS % 0.9 % (0.0-3.0); HEMATOCRIT 25.7 % (36.0-47.0); HEMOGLOBIN 8.2 g/dl (12.0-15.5); LYMPH # 2.2 10^3/uL (1.5-5.0); LYMPH % 19.4 % (24.0-44.0); MEAN CORPUSCULAR HEMOGLOBIN 28.5 pg (27.0-33.0); MEAN CORPUSCULAR HGB CONC 31.9 g/dl (32.0-36.5); MEAN CORPUSCULAR VOLUME 89.2 fl (80.0-96.0); MONO # 0.9 10^3/uL (0.0-0.8); MONO % 7.8 % (2.0-8.0); NEUTROPHILS # 8.2 10^3/uL (1.5-8.5); NEUTROPHILS % 70.8 % (36.0-66.0); PLATELET COUNT, AUTOMATED 316 10^3/uL (150-450); RED BLOOD COUNT 2.88 10^6/uL (4.00-5.40); WHITE BLOOD COUNT 11.6 10^3/uL (4.0-10.0)
[2024-02-10 03:49] LABS: CK-MB VALUE MASS 1.1 NG/ML (<3.6)
[2024-02-10 03:50] LABS: CALCIUM LEVEL 8.1 MG/DL (8.3-10.6); CREATININE FOR GFR 1.75 MG/DL (0.55-1.30); GLOMERULAR FILTRATION RATE 31.4 (>45); POTASSIUM SERUM 4.1 MMOL/L (3.5-5.1)
[2024-02-10 03:55] LABS: MB/CK RELATIVE INDEX 1.12 (< OR =4)
[2024-02-10 04:47] LABS: CK-MB VALUE MASS 1.1 NG/ML (<3.6)
[2024-02-10 04:48] LABS: MB/CK RELATIVE INDEX 1.27 (< OR =4)
[2024-02-10] MEDS ORDERED: ISOVUE-370 76% 100ML VIAL As Ordered ONE (05:44)
[2024-02-10] MEDS: MAALOX 30 ML SUSP *UDC PO ONE (05:47)
[2024-02-10] MEDS: NS 3,680 ML in IV 1 EA IV ONE (06:00)
[2024-02-10] MEDS: FUROSEMIDE 40MG/4ML VIAL IV ONE (10:15)
[2024-02-10 13:11] VITALS: BP 159/65; TEMP 97.9; O2SAT 100
[2024-02-11] MEDS ORDERED: FAMO40TA3 PO (06:33)
== END 2024-02-10 13:21 | disposition home or self-care (01) ==
LOC: M ED 02:58
DX: R07.9 Chest pain, unspecified (principal); N28.89 Other specified disorders of kidney and ureter; R91.1 Solitary pulmonary nodule; R00.0 Tachycardia, unspecified; I31.39 Other pericardial effusion (noninflammatory); E11.9 Type 2 diabetes mellitus without complications; I10 Essential (primary) hypertension; K21.9 Gastro-esophageal reflux disease without esophagitis; N18.9 Chronic kidney disease, unspecified; Z88.5 Allergy status to narcotic agent; Z79.82 Long term (current) use of aspirin; Z79.02 Long term (current) use of antithrombotics/antiplatelets; Z79.811 Long term (current) use of aromatase inhibitors; Z79.899 Other long term (current) drug therapy
CPT/HCPCS: 71045; 71275; 74177; 80048; 82550; 82553; 84484; 85025; 93005; 93041; 94760; 96361; 96374; 99285; J1940; Q9967

== ENCOUNTER 2024-02-10 21:55 | Emergency (ER) | payer OTHER ==
[~2024-02-10] VITALS: Ht 172.7 cm; Wt 270.0 kg
[2024-02-10 22:28] LABS: BASO # 0.1 10^3/uL (0.0-0.2); BASO % 0.5 % (0.0-1.0); EOS % 0.2 % (0.0-3.0); HEMATOCRIT 22.1 % (36.0-47.0); HEMOGLOBIN 7.1 g/dl (12.0-15.5); LYMPH # 2.3 10^3/uL (1.5-5.0); LYMPH % 16.3 % (24.0-44.0); MEAN CORPUSCULAR HGB CONC 32.1 g/dl (32.0-36.5); MEAN CORPUSCULAR VOLUME 90.2 fl (80.0-96.0); MONO # 0.9 10^3/uL (0.0-0.8); MONO % 6.8 % (2.0-8.0); NEUTROPHILS # 10.4 10^3/uL (1.5-8.5); NEUTROPHILS % 75.7 % (36.0-66.0); PLATELET COUNT, AUTOMATED 348 10^3/uL (150-450); RED BLOOD COUNT 2.45 10^6/uL (4.00-5.40); WHITE BLOOD COUNT 13.8 10^3/uL (4.0-10.0)
[2024-02-10 22:44] LABS: INR 1.29; PROTHROMBIN TIME 15.7 SECONDS (12.5-14.5)
[2024-02-10 22:59] LABS: ALBUMIN 2.6 G/DL (3.2-5.2); BILIRUBIN,DIRECT 0.1 MG/DL (<0.4); BILIRUBIN,TOTAL 0.3 MG/DL (0.3-1.2); CALCIUM LEVEL 8.5 MG/DL (8.3-10.6); CK-MB VALUE MASS 1.7 NG/ML (<3.6); CREATININE FOR GFR 1.92 MG/DL (0.55-1.30); GLOMERULAR FILTRATION RATE 28.2 (>45); POTASSIUM SERUM 4.6 MMOL/L (3.5-5.1); TOTAL PROTEIN 5.6 G/DL (5.7-8.2)
[2024-02-10 23:01] LABS: MB/CK RELATIVE INDEX 1.37 (< OR =4)
[2024-02-11] MEDS: SUCRALFATE 1 GM TAB PO ONE (03:52)
[2024-02-11] MEDS: PANTOPRAZOLE 40MG VIAL IV ONE (03:52)
[2024-02-11] MEDS: FAMOTIDINE IV BAG 20 MG in IV 1 EA IV ONE (03:53)
[2024-02-11 04:20] LABS: BASO # 0.1 10^3/uL (0.0-0.2); BASO % 0.4 % (0.0-1.0); EOS % 0.1 % (0.0-3.0); HEMATOCRIT 21.1 % (36.0-47.0); LYMPH # 1.6 10^3/uL (1.5-5.0); MEAN CORPUSCULAR HEMOGLOBIN 28.9 pg (27.0-33.0); MEAN CORPUSCULAR HGB CONC 31.8 g/dl (32.0-36.5); MEAN CORPUSCULAR VOLUME 90.9 fl (80.0-96.0); MONO # 0.7 10^3/uL (0.0-0.8); NEUTROPHILS # 11.2 10^3/uL (1.5-8.5); NEUTROPHILS % 81.9 % (36.0-66.0); PLATELET COUNT, AUTOMATED 334 10^3/uL (150-450); RED BLOOD COUNT 2.32 10^6/uL (4.00-5.40); WHITE BLOOD COUNT 13.7 10^3/uL (4.0-10.0)
[2024-02-11 04:24] LABS: HEMOGLOBIN 6.7 g/dl (12.0-15.5)
[2024-02-11 06:23] LABS: BASO # 0.1 10^3/uL (0.0-0.2); BASO % 0.4 % (0.0-1.0); HEMATOCRIT 21.9 % (36.0-47.0); LYMPH # 2.4 10^3/uL (1.5-5.0); LYMPH % 14.1 % (24.0-44.0); MEAN CORPUSCULAR HEMOGLOBIN 27.9 pg (27.0-33.0); MEAN CORPUSCULAR HGB CONC 30.6 g/dl (32.0-36.5); MEAN CORPUSCULAR VOLUME 91.3 fl (80.0-96.0); MONO # 0.8 10^3/uL (0.0-0.8); MONO % 4.8 % (2.0-8.0); NEUTROPHILS # 13.8 10^3/uL (1.5-8.5); NEUTROPHILS % 80.1 % (36.0-66.0); PLATELET COUNT, AUTOMATED 368 10^3/uL (150-450); WHITE BLOOD COUNT 17.2 10^3/uL (4.0-10.0)
[2024-02-11 06:28] LABS: HEMOGLOBIN 6.7 g/dl (12.0-15.5)
[2024-02-11] MEDS ORDERED: FAMO40TA3 PO (06:33)
[2024-02-11 07:01] VITALS: BP 110/58; TEMP 98.8; O2SAT 99
== END 2024-02-11 07:06 | disposition home or self-care (01) ==
LOC: M ED 21:55
DX: K30 Functional dyspepsia (principal); R00.0 Tachycardia, unspecified; D50.9 Iron deficiency anemia, unspecified; N18.9 Chronic kidney disease, unspecified; Z88.5 Allergy status to narcotic agent; Z79.82 Long term (current) use of aspirin; Z79.02 Long term (current) use of antithrombotics/antiplatelets; Z79.810 Long term (current) use of selective estrogen receptor modulators (SERMs); Z79.899 Other long term (current) drug therapy
CPT/HCPCS: 71045; 80053; 82248; 82550; 82553; 83690; 84484; 85025; 85610; 93005; 93041; 94760; 96374; 96375; 99285; C9113; S0028

== ENCOUNTER 2024-02-14 14:27 | Observation (INO) | payer OTHER ==
[2024-02-14] VITALS (8 sets, daily range): BP systolic 107–122; BP diastolic 49–60; TEMP 96.8–98; O2SAT 100
[~2024-02-14] VITALS: Ht 172.7 cm; Wt 123.8 kg
[~2024-02-14 14:27] MED LIST changes: +FAMO40TA3 PO
[2024-02-14] MEDS ORDERED: CEPH500C PO (15:32)
[2024-02-14] MEDS ORDERED: SUCR1TAB56 PO (15:32)
[2024-02-14] MEDS ORDERED: FERR325T19 PO (15:33)
[2024-02-14 15:35] LABS: BASO % 0.4 % (0.0-1.0); EOS # 0.1 10^3/uL (0.0-0.5); EOS % 0.9 % (0.0-3.0); LYMPH # 1.4 10^3/uL (1.5-5.0); LYMPH % 14.7 % (24.0-44.0); MEAN CORPUSCULAR HEMOGLOBIN 29.3 pg (27.0-33.0); MEAN CORPUSCULAR HGB CONC 30.8 g/dl (32.0-36.5); MEAN CORPUSCULAR VOLUME 95.1 fl (80.0-96.0); MONO # 0.7 10^3/uL (0.0-0.8); MONO % 7.4 % (2.0-8.0); NEUTROPHILS # 7.3 10^3/uL (1.5-8.5); NEUTROPHILS % 76.1 % (36.0-66.0); PLATELET COUNT, AUTOMATED 364 10^3/uL (150-450); RED BLOOD COUNT 2.05 10^6/uL (4.00-5.40); WHITE BLOOD COUNT 9.7 10^3/uL (4.0-10.0)
[2024-02-14 15:38] LABS: HEMATOCRIT 19.5 % (36.0-47.0)
[2024-02-14 16:06] LABS: CALCIUM LEVEL 8.3 MG/DL (8.3-10.6); CREATININE FOR GFR 2.04 MG/DL (0.55-1.30); GLOMERULAR FILTRATION RATE 26.3 (>45); PERCENT SATURATION 71.9 % (13.2-45.0); POTASSIUM SERUM 4.4 MMOL/L (3.5-5.1)
[2024-02-14 16:08] LABS: FERRITIN 15.7 NG/ML (7.3-270.7); FOLATE 7.57 NG/ML (>5.4)
[2024-02-14] MEDS ORDERED: FAMO40TA3 PO (18:10)
[2024-02-14] MEDS ORDERED: MOM 30ML SUSPENSION UDC PO PRN (18:10)
[2024-02-14] MEDS ORDERED: ASPI81CH33 PO (18:10)
[2024-02-14] MEDS ORDERED: MAALOX 30 ML SUSP *UDC PO PRN (18:10)
[2024-02-14] MEDS ORDERED: HOME MED LIST COMPLETE! XX SCH (18:15)
[2024-02-14] MEDS ORDERED: GLUCOSE 4 GM CHEW PO PRN (18:15)
[2024-02-14] MEDS ORDERED: DEXTROSE 50% 50ML SYRINGE IV PRN (18:15)
[2024-02-14] MEDS ORDERED: GLUCAGON INJ 1MG VIAL SC PRN (18:15)
[2024-02-14] MEDS: INSULIN LISPRO (NovoLOG) PER UNIT SC SCH ×2 (19:21→21:00)
[2024-02-14] MEDS: CEPHALEXIN 500 MG CAP PO SCH (21:06)
[2024-02-14] MEDS: SUCRALFATE 1 GM TAB PO SCH (21:06)
[2024-02-14] MEDS: PANTOPRAZOLE 40MG TAB (PROTONIX) PO SCH (21:07)
[2024-02-15] VITALS (11 sets, daily range): BP systolic 95–134; BP diastolic 44–60; TEMP 96.7–97.6; O2SAT 96–100
[2024-02-15 02:20] LABS: HEMATOCRIT 22.9 % (36.0-47.0); HEMOGLOBIN 7.4 g/dl (12.0-15.5)
[2024-02-15] MEDS: LEVOTHYROXINE 75MCG TABLET (0.075MG) PO SCH (05:27)
[2024-02-15] MEDS: ACETAMINOPHEN TAB 650MG DOSE (2X325MG) PO PRN (05:27)
[2024-02-15 05:28] LABS: BASO # 0.1 10^3/uL (0.0-0.2); BASO % 0.5 % (0.0-1.0); EOS # 0.2 10^3/uL (0.0-0.5); EOS % 1.7 % (0.0-3.0); HEMATOCRIT 23.3 % (36.0-47.0); HEMOGLOBIN 7.4 g/dl (12.0-15.5); LYMPH # 2.3 10^3/uL (1.5-5.0); LYMPH % 20.5 % (24.0-44.0); MEAN CORPUSCULAR HEMOGLOBIN 28.8 pg (27.0-33.0); MEAN CORPUSCULAR HGB CONC 31.8 g/dl (32.0-36.5); MEAN CORPUSCULAR VOLUME 90.7 fl (80.0-96.0); MONO # 0.9 10^3/uL (0.0-0.8); MONO % 8.5 % (2.0-8.0); NEUTROPHILS # 7.5 10^3/uL (1.5-8.5); NEUTROPHILS % 68.2 % (36.0-66.0); PLATELET COUNT, AUTOMATED 342 10^3/uL (150-450); RED BLOOD COUNT 2.57 10^6/uL (4.00-5.40)
[2024-02-15 05:58] LABS: CALCIUM LEVEL 7.9 MG/DL (8.3-10.6); CREATININE FOR GFR 1.91 MG/DL (0.55-1.30); GLOMERULAR FILTRATION RATE 28.3 (>45); MAGNESIUM LEVEL 2.1 MG/DL (1.8-2.4)
[2024-02-15] MEDS: LORATADINE 10 MG TAB PO SCH (09:02)
[2024-02-15] MEDS: MAGNESIUM OXIDE 400MG TAB (MAG-OX) PO SCH (09:02)
[2024-02-15 12:32] LABS: HEMATOCRIT 26.5 % (36.0-47.0); HEMOGLOBIN 8.5 g/dl (12.0-15.5)
[2024-02-15 12:58] LABS: THYROXINE (T4) 11.1 UG/DL (4.5-10.9)
[2024-02-15 12:59] LABS: FREE T4 1.26 NG/DL (0.89-1.76); THYROID STIMULATING HORMONE 3.68 uIU/ML (0.55-4.78)
[2024-02-16 03:34] VITALS: BP 114/58; TEMP 97.2; O2SAT 97
[2024-02-16 06:56] LABS: HEMATOCRIT 26.1 % (36.0-47.0); HEMOGLOBIN 8.5 g/dl (12.0-15.5)
[2024-02-16 07:36] VITALS: BP 127/58; TEMP 97.3; O2SAT 98
[2024-02-16] MEDS ORDERED: MECL-136 PO (09:28)
== END 2024-02-16 10:22 | disposition home health service (06) ==
LOC: EDBD 14:27 → M ED 14:27 → M ED INP 18:14 → M PCU 22:01
PROVIDERS: ADMIT Student in an Organized Health Care Education/Training Program; ATTEND Student in an Organized Health Care Education/Training Program
DX: D64.9 Anemia, unspecified (principal); E11.40 Type 2 diabetes mellitus with diabetic neuropathy, unspecified; N18.32 Chronic kidney disease, stage 3b; I12.9 Hypertensive chronic kidney disease with stage 1 through stage 4 chronic kidney disease, or unspecified chronic kidney disease; E66.01 Morbid (severe) obesity due to excess calories; F17.218 Nicotine dependence, cigarettes, with other nicotine-induced disorders; E78.5 Hyperlipidemia, unspecified; R42 Dizziness and giddiness; G47.33 Obstructive sleep apnea (adult) (pediatric); Z79.4 Long term (current) use of insulin; D35.00 Benign neoplasm of unspecified adrenal gland; E03.9 Hypothyroidism, unspecified; Z79.82 Long term (current) use of aspirin; Z79.899 Other long term (current) drug therapy; Z88.5 Allergy status to narcotic agent
CPT/HCPCS: 36415; 36430; 71045; 80048; 82607; 82728; 82746; 83550; 83735; 84436; 84439; 84443; 85014; 85018; 85025; 85046; 86850; 86900; 86901; 86920; 93005; 93041; 94760; 97161; 97530; 99285; J1815; P9016

== ENCOUNTER → 2024-02-18 | Outpatient (REF) | payer OTHER ==
[~2024-02-18] MED LIST changes: +ASPI81CH33 PO; +CEPH500C PO; +FERR325T19 PO; +MECL-136 PO; +SUCR1TAB56 PO
[2024-02-18 17:17] LABS: BASO % 0.3 % (0.0-1.0); EOS # 0.2 10^3/uL (0.0-0.5); EOS % 1.6 % (0.0-3.0); HEMATOCRIT 32.2 % (36.0-47.0); HEMOGLOBIN 10.1 g/dl (12.0-15.5); LYMPH # 1.6 10^3/uL (1.5-5.0); LYMPH % 13.9 % (24.0-44.0); MEAN CORPUSCULAR HEMOGLOBIN 28.9 pg (27.0-33.0); MEAN CORPUSCULAR HGB CONC 31.4 g/dl (32.0-36.5); MEAN CORPUSCULAR VOLUME 92.3 fl (80.0-96.0); MONO % 8.4 % (2.0-8.0); NEUTROPHILS # 8.7 10^3/uL (1.5-8.5); NEUTROPHILS % 75.2 % (36.0-66.0); PLATELET COUNT, AUTOMATED 447 10^3/uL (150-450); RED BLOOD COUNT 3.49 10^6/uL (4.00-5.40); WHITE BLOOD COUNT 11.5 10^3/uL (4.0-10.0)
[2024-02-18 17:37] LABS: BILIRUBIN,TOTAL 0.6 MG/DL (0.3-1.2); CALCIUM LEVEL 8.7 MG/DL (8.3-10.6); CREATININE FOR GFR 1.76 MG/DL (0.55-1.30); GLOMERULAR FILTRATION RATE 31.1 (>45); POTASSIUM SERUM 4.6 MMOL/L (3.5-5.1); TOTAL PROTEIN 6.4 G/DL (5.7-8.2)
== END ==
LOC: M SFHCCLAY 13:51
PROVIDERS: ATTEND Nurse Practitioner Family
DX: D64.9 Anemia, unspecified (principal); E11.8 Type 2 diabetes mellitus with unspecified complications

== ENCOUNTER 2024-03-18 12:37 | Observation (INO) | payer OTHER ==
[~2024-03-18] VITALS: Ht 170.2 cm; Wt 117.8 kg
[2024-03-18] VITALS (7 sets, daily range): BP systolic 118–136; BP diastolic 54–65; TEMP 97–97.8; O2SAT 100
[2024-03-18 14:03] LABS: VENOUS BASE EXCESS -3.8 (-2.0-2.0); VENOUS HCO3 22.9 MMOL/L (23.0-27.0); VENOUS O2 SATURATION 43.5 % (60.0-80.0); VENOUS PARTIAL PRESSURE CO2 50.6 mmHg (38.0-50.0); VENOUS PH 7.274 UNITS (7.330-7.430); VENOUS STANDARD HCO3 20.5 MMOL/L; VENOUS TOTAL CO2 24.5 MMOL/L (24.0-28.0)
[2024-03-18 14:15] LABS: BASO % 0.4 % (0.0-1.0); EOS # 0.1 10^3/uL (0.0-0.5); EOS % 0.9 % (0.0-3.0); HEMATOCRIT 24.1 % (36.0-47.0); HEMOGLOBIN 7.2 g/dl (12.0-15.5); LYMPH # 1.4 10^3/uL (1.5-5.0); LYMPH % 15.4 % (24.0-44.0); MEAN CORPUSCULAR HGB CONC 29.9 g/dl (32.0-36.5); MEAN CORPUSCULAR VOLUME 90.3 fl (80.0-96.0); MONO # 0.7 10^3/uL (0.0-0.8); MONO % 7.9 % (2.0-8.0); NEUTROPHILS % 75.1 % (36.0-66.0); PLATELET COUNT, AUTOMATED 366 10^3/uL (150-450); RED BLOOD COUNT 2.67 10^6/uL (4.00-5.40); WHITE BLOOD COUNT 9.4 10^3/uL (4.0-10.0)
[2024-03-18] MEDS: NS 500 ML IV ONE (14:28)
[2024-03-18 14:41] LABS: ALBUMIN 2.5 G/DL (3.2-5.2); ALKALINE PHOSPHATASE 104 U/L (46-116); ALT/SGPT 12 U/L (7.0-40); AST/SGOT < 8 U/L (<34); BILIRUBIN,DIRECT 0.2 MG/DL (<0.4); BILIRUBIN,TOTAL 0.5 MG/DL (0.3-1.2); BLOOD UREA NITROGEN 20 MG/DL (9-23); CALCIUM LEVEL 8.5 MG/DL (8.3-10.6); CARBON DIOXIDE LEVEL 26 MMOL/L (20-31); CHLORIDE LEVEL 110 MMOL/L (98-107); CREATININE FOR GFR 1.69 MG/DL (0.55-1.30); GLOMERULAR FILTRATION RATE 32.6 (>45); GLUCOSE, FASTING 122 MG/DL (74-106); POTASSIUM SERUM 3.8 MMOL/L (3.5-5.1); SODIUM LEVEL 142 MMOL/L (136-145); THYROID STIMULATING HORMONE 1.662 uIU/ML (0.55-4.78); TOTAL PROTEIN 5.9 G/DL (5.7-8.2)
[2024-03-18 14:57] LABS: OSMOLALITY SERUM 305 MOSM/KG (280-301)
[2024-03-18] MEDS ORDERED: MECL-136 PO (17:10)
[2024-03-18 17:11] LABS: IRON (FE) 13 UG/DL (50-170); PERCENT SATURATION 4.4 % (13.2-45.0); TOTAL IRON BINDING CAPACITY 294 UG/DL (250-425)
[2024-03-18] MEDS ORDERED: med rec comment (17:13)
[2024-03-18 17:14] LABS: FERRITIN 7.8 NG/ML (7.3-270.7)
[2024-03-18] MEDS ORDERED: HOME MED LIST COMPLETE! XX SCH (17:15)
[2024-03-19 00:01] VITALS: BP 125/58; TEMP 97; O2SAT 98
[2024-03-19 00:54] VITALS: BP 132/60; TEMP 96.9; O2SAT 100
[2024-03-19] MEDS: ACETAMINOPHEN TAB 650MG DOSE (2X325MG) PO PRN (01:09)
[2024-03-19 04:00] VITALS: BP 129/60; TEMP 96.5; O2SAT 100
[2024-03-19 08:24] LABS: HEMATOCRIT 31.1 % (36.0-47.0); MEAN CORPUSCULAR HEMOGLOBIN 27.7 pg (27.0-33.0); MEAN CORPUSCULAR HGB CONC 31.5 g/dl (32.0-36.5); MEAN CORPUSCULAR VOLUME 87.9 fl (80.0-96.0); PLATELET COUNT, AUTOMATED 360 10^3/uL (150-450); RED BLOOD COUNT 3.54 10^6/uL (4.00-5.40)
[2024-03-19 08:29] LABS: HEMOGLOBIN 9.8 g/dl (12.0-15.5)
[2024-03-19] MEDS ORDERED: MECLIZINE 12.5 MG TAB PO PRN (08:45)
[2024-03-19 08:51] LABS: CALCIUM LEVEL 8.1 MG/DL (8.3-10.6); CREATININE FOR GFR 1.66 MG/DL (0.55-1.30); GLOMERULAR FILTRATION RATE 33.3 (>45); POTASSIUM SERUM 4.2 MMOL/L (3.5-5.1)
[2024-03-19] MEDS: ATORVASTATIN 20 MG TAB PO SCH (09:33)
[2024-03-19] MEDS: LORATADINE 10 MG TAB PO SCH (09:33)
[2024-03-19] MEDS: VITAMIN D 1,000 INTERNATIONAL UNITS TABLET PO SCH (09:33)
[2024-03-19] MEDS: LEVOTHYROXINE 75MCG TABLET (0.075MG) PO SCH (09:33)
[2024-03-19] MEDS: PANTOPRAZOLE 40MG TAB (PROTONIX) PO SCH (09:33)
[2024-03-19] MEDS: SUCRALFATE 1 GM TAB PO SCH (09:33)
== END 2024-03-19 13:29 | disposition home or self-care (01) ==
LOC: M ED 12:37 → EDBD 12:37 → M ED INP 12:38 → M MS4PR 22:45
PROVIDERS: ADMIT Hospitalist; ATTEND Hospitalist
DX: D64.9 Anemia, unspecified (principal); H81.10 Benign paroxysmal vertigo, unspecified ear; I12.9 Hypertensive chronic kidney disease with stage 1 through stage 4 chronic kidney disease, or unspecified chronic kidney disease; N18.30 Chronic kidney disease, stage 3 unspecified; E11.9 Type 2 diabetes mellitus without complications; E78.5 Hyperlipidemia, unspecified; K59.04 Chronic idiopathic constipation; I25.10 Atherosclerotic heart disease of native coronary artery without angina pectoris; E03.9 Hypothyroidism, unspecified; E66.9 Obesity, unspecified; Z85.528 Personal history of other malignant neoplasm of kidney; Z79.899 Other long term (current) drug therapy
CPT/HCPCS: 36415; 36430; 80048; 80076; 82140; 82728; 82803; 83550; 83930; 84443; 84466; 85025; 85027; 86850; 86900; 86901; 86920; 93005; 93041; 94760; 96374; 97116; 97161; 99285; P9016

== ENCOUNTER → 2024-03-25 | Outpatient (REF) | payer OTHER ==
[~2024-03-25] MED LIST changes: +med rec comment
[2024-03-30 18:53] LABS: PERCENT SATURATION 40.5 % (13.2-45.0)
[2024-03-30 18:55] LABS: FERRITIN 23.6 NG/ML (7.3-270.7)
== END ==
LOC: M LAB REF 17:16
PROVIDERS: ATTEND Nurse Practitioner Family
DX: D50.9 Iron deficiency anemia, unspecified (principal)

== ENCOUNTER 2024-04-13 16:56 | Emergency (ER) | payer OTHER, MEDICAID ==
[~2024-04-13] VITALS: Ht 172.7 cm; Wt 122.1 kg
[2024-04-13 17:47] LABS: BASO # 0.1 10^3/uL (0.0-0.2); BASO % 0.7 % (0.0-1.0); EOS # 0.1 10^3/uL (0.0-0.5); EOS % 1.1 % (0.0-3.0); HEMATOCRIT 36.5 % (36.0-47.0); HEMOGLOBIN 11.3 g/dl (12.0-15.5); LYMPH # 1.5 10^3/uL (1.5-5.0); LYMPH % 14.4 % (24.0-44.0); MEAN CORPUSCULAR HEMOGLOBIN 28.1 pg (27.0-33.0); MEAN CORPUSCULAR VOLUME 90.8 fl (80.0-96.0); MONO # 0.7 10^3/uL (0.0-0.8); MONO % 6.5 % (2.0-8.0); NEUTROPHILS # 7.8 10^3/uL (1.5-8.5); NEUTROPHILS % 76.8 % (36.0-66.0); PLATELET COUNT, AUTOMATED 333 10^3/uL (150-450); RED BLOOD COUNT 4.02 10^6/uL (4.00-5.40); WHITE BLOOD COUNT 10.1 10^3/uL (4.0-10.0)
[2024-04-13 18:03] LABS: INR 1.11; PARTIAL THROMBOPLASTIN TIME 27.6 SECONDS (24.8-34.2); PROTHROMBIN TIME 13.9 SECONDS (12.5-14.5)
[2024-04-13 18:15] LABS: ALBUMIN 3.1 G/DL (3.2-5.2); BILIRUBIN,DIRECT 0.3 MG/DL (<0.4); BILIRUBIN,TOTAL 0.6 MG/DL (0.3-1.2); CALCIUM LEVEL 8.7 MG/DL (8.3-10.6); CREATININE FOR GFR 1.71 MG/DL (0.55-1.30); GLOMERULAR FILTRATION RATE 32.2 (>45); TOTAL PROTEIN 6.9 G/DL (5.7-8.2)
[2024-04-13 18:17] LABS: THYROID STIMULATING HORMONE 4.176 uIU/ML (0.55-4.78)
[2024-04-13] MEDS: NS 500 ML IV ONE (19:31)
[2024-04-13 20:11] VITALS: BP 128/78; TEMP 98.6; O2SAT 98
== END 2024-04-13 20:13 | disposition home or self-care (01) ==
LOC: M ED 16:56
DX: R42 Dizziness and giddiness (principal); E11.9 Type 2 diabetes mellitus without complications; I12.9 Hypertensive chronic kidney disease with stage 1 through stage 4 chronic kidney disease, or unspecified chronic kidney disease; E78.5 Hyperlipidemia, unspecified; Z87.891 Personal history of nicotine dependence; Z90.5 Acquired absence of kidney; Z79.4 Long term (current) use of insulin; Z79.82 Long term (current) use of aspirin; Z79.899 Other long term (current) drug therapy; Z88.5 Allergy status to narcotic agent

== ENCOUNTER 2024-05-11 12:46 | Observation (INO) | payer OTHER ==
[~2024-05-11] VITALS: Ht 170.2 cm; Wt 125.6 kg
[2024-05-11] MEDS: ONDANSETRON 4MG 2ML VIAL IV ONE (10:25)
[2024-05-11] MEDS: SIMETHICONE 80MG CHEW TAB PO ONE (10:25)
[2024-05-11] MEDS: NS 1,000 ML IV ONE (10:27)
[2024-05-11] MEDS: ACETAMINOPHEN *IV* 1,000 MG in IV 1 EA IV ONE (10:58)
[2024-05-11 11:54] LABS: HEMATOCRIT 30.6 % (36.0-47.0); HEMOGLOBIN 9.4 g/dl (12.0-15.5); MEAN CORPUSCULAR HEMOGLOBIN 27.9 pg (27.0-33.0); MEAN CORPUSCULAR HGB CONC 30.7 g/dl (32.0-36.5); MEAN CORPUSCULAR VOLUME 90.8 fl (80.0-96.0); PLATELET COUNT, AUTOMATED 284 10^3/uL (150-450); RED BLOOD COUNT 3.37 10^6/uL (4.00-5.40); WHITE BLOOD COUNT 11.2 10^3/uL (4.0-10.0)
[2024-05-11 12:00] VITALS: BP 152/66; TEMP 97.3; O2SAT 93
[2024-05-11] MEDS: fentaNYL 100 MCG/2 ML INJECTION IV PRN (12:00)
[2024-05-11 12:20] LABS: CALCIUM LEVEL 8.2 MG/DL (8.3-10.6); CREATININE FOR GFR 1.79 MG/DL (0.55-1.30); GLOMERULAR FILTRATION RATE 30.5 (>45); POTASSIUM SERUM 4.2 MMOL/L (3.5-5.1)
[~2024-05-11 12:46] MED LIST changes: +ACETAMINOPHEN *IV* 1,000 MG in IV 1 EA IV STA; +DULA4.5P SC; +EPINEPHrine 1MG/10ML SYRINGE 1.5IN As Ordered ONE; +FAMO20TA5 PO; +INSU200I5 SC; +LIDOCAINE 2% 100MG/5ML SDV (FOR ANES.) As Ordered ONE; +LORA-930 PO; +ONDANSETRON 4MG 2ML VIAL IV PRN; +fentaNYL 100 MCG/2 ML INJECTION As Ordered ONE; +propofoL 200 MG/20 ML VIAL As Ordered ONE
[2024-05-11 13:04] VITALS: BP 152/66; TEMP 97.3; O2SAT 93
[2024-05-11] MEDS: METOCLOPRAMIDE INJ 10MG/2ML VIAL IV SCH (13:10)
[2024-05-11] MEDS: PANTOPRAZOLE 40MG VIAL IV SCH (13:11)
[2024-05-11] MEDS: NS 1,000 ML IV SCH (13:11)
[2024-05-11] MEDS ORDERED: KETOROLAC 30 MG/ML 1ML VIAL IV PRN (14:00)
[2024-05-11] MEDS ORDERED: ACETAMINOPHEN TAB 650MG DOSE (2X325MG) PO PRN (15:00)
[2024-05-11 15:57] VITALS: BP 137/65; TEMP 97; O2SAT 94
[2024-05-11] MEDS: SUCRALFATE 1 GM TAB PO SCH (18:28)
[2024-05-11 19:34] VITALS: BP 131/60; TEMP 97.5; O2SAT 96
[2024-05-11 20:49] LABS: HEMATOCRIT 30.9 % (36.0-47.0); HEMOGLOBIN 9.5 g/dl (12.0-15.5)
[2024-05-11] MEDS: INSULIN LISPRO (NovoLOG) PER UNIT SC SCH (21:00)
[2024-05-11] MEDS ORDERED: GLUCAGON INJ 1MG VIAL SC PRN (21:05)
[2024-05-11] MEDS ORDERED: GLUCOSE 4 GM CHEW PO PRN (21:05)
[2024-05-11] MEDS ORDERED: DEXTROSE 50% 50ML SYRINGE IV PRN (21:05)
[2024-05-11 23:02] VITALS: BP 128/56; TEMP 98; O2SAT 97
[2024-05-12 04:14] VITALS: BP 137/62; TEMP 98.1; O2SAT 98
[2024-05-12 06:20] LABS: HEMATOCRIT 29.4 % (36.0-47.0); HEMOGLOBIN 8.9 g/dl (12.0-15.5); MEAN CORPUSCULAR HEMOGLOBIN 27.7 pg (27.0-33.0); MEAN CORPUSCULAR HGB CONC 30.3 g/dl (32.0-36.5); MEAN CORPUSCULAR VOLUME 91.6 fl (80.0-96.0); PLATELET COUNT, AUTOMATED 288 10^3/uL (150-450); RED BLOOD COUNT 3.21 10^6/uL (4.00-5.40); WHITE BLOOD COUNT 10.1 10^3/uL (4.0-10.0)
[2024-05-12 07:21] LABS: CREATININE FOR GFR 1.67 MG/DL (0.55-1.30); GLOMERULAR FILTRATION RATE 33.1 (>45); MAGNESIUM LEVEL 1.9 MG/DL (1.8-2.4); POTASSIUM SERUM 4.1 MMOL/L (3.5-5.1)
[2024-05-12] MEDS: INSULIN LISPRO (NovoLOG) PER UNIT SC SCH (07:30)
[2024-05-12 07:56] VITALS: TEMP 98; O2SAT 97
[2024-05-12] MEDS ORDERED: ATORVASTATIN 20 MG TAB PO SCH (09:00)
[2024-05-12] MEDS ORDERED: VITAMIN D 1,000 INTERNATIONAL UNITS TABLET PO SCH (09:00)
[2024-05-12] MEDS ORDERED: LORATADINE 10 MG TAB PO SCH (09:00)
[2024-05-12] MEDS ORDERED: DOCUSATE SODIUM 100MG CAPSULE PO SCH (09:00)
[2024-05-12] MEDS ORDERED: ASPIRIN 81MG CHEW TABLET PO SCH (09:00)
[2024-05-12] MEDS ORDERED: FERROUS SULFATE 325MG TAB PO SCH (09:00)
[2024-05-12] MEDS ORDERED: MECLIZINE 12.5 MG TAB PO PRN (10:00)
[2024-05-12] MEDS ORDERED: FAMOTIDINE 20 MG TAB PO PRN (10:00)
[2024-05-12] MEDS: LEVOTHYROXINE 75MCG TABLET (0.075MG) PO SCH (11:23)
== END 2024-05-12 11:52 | disposition home or self-care (01) ==
LOC: M PCU 12:46 → EDSTATUS 13:15
PROVIDERS: ADMIT Surgery; ATTEND Surgery
DX: G89.18 Other acute postprocedural pain (principal); K31.7 Polyp of stomach and duodenum; C78.89 Secondary malignant neoplasm of other digestive organs; Z85.528 Personal history of other malignant neoplasm of kidney; I10 Essential (primary) hypertension; E11.9 Type 2 diabetes mellitus without complications; E78.5 Hyperlipidemia, unspecified; N18.9 Chronic kidney disease, unspecified; Z79.52 Long term (current) use of systemic steroids; Z79.899 Other long term (current) drug therapy; Z79.4 Long term (current) use of insulin; E03.9 Hypothyroidism, unspecified; R42 Dizziness and giddiness; E66.9 Obesity, unspecified; Z88.5 Allergy status to narcotic agent; G47.33 Obstructive sleep apnea (adult) (pediatric)
CPT/HCPCS: 36415; 43251; 71045; 80048; 83735; 84484; 85014; 85018; 85027; 86850; 86900; 86901; 88305; 93005; 94660; 96360; 96361; J0131; J0171; J2405; J2470; J2765

== ENCOUNTER → 2024-06-12 | Outpatient (CLI) | payer OTHER ==
[~2024-06-12] MED LIST changes: -ACETAMINOPHEN *IV* 1,000 MG in IV 1 EA IV STA; -EPINEPHrine 1MG/10ML SYRINGE 1.5IN As Ordered ONE; +GASTROGRAFIN SOLUTION 30ML As Ordered ONE; +INLY5TAB PO; -LIDOCAINE 2% 100MG/5ML SDV (FOR ANES.) As Ordered ONE; -ONDANSETRON 4MG 2ML VIAL IV PRN; +POTA-298; -fentaNYL 100 MCG/2 ML INJECTION As Ordered ONE; -propofoL 200 MG/20 ML VIAL As Ordered ONE
== END ==
LOC: M RAD 09:11
PROVIDERS: ATTEND Internal Medicine Medical Oncology
DX: C64.9 Malignant neoplasm of unspecified kidney, except renal pelvis (principal); K44.9 Diaphragmatic hernia without obstruction or gangrene; K80.20 Calculus of gallbladder without cholecystitis without obstruction; C79.51 Secondary malignant neoplasm of bone
CPT/HCPCS: 71250; 74176; Q9963

== ENCOUNTER → 2024-06-23 | Outpatient (CLI) | payer OTHER ==
[~2024-06-23] MED LIST changes: +CEPH500T PO; -GASTROGRAFIN SOLUTION 30ML As Ordered ONE
== END ==
LOC: M ONCR 15:31
PROVIDERS: ATTEND General Practice
DX: C64.2 Malignant neoplasm of left kidney, except renal pelvis (principal); C77.0 Secondary and unspecified malignant neoplasm of lymph nodes of head, face and neck; C77.3 Secondary and unspecified malignant neoplasm of axilla and upper limb lymph nodes; C79.51 Secondary malignant neoplasm of bone; C78.89 Secondary malignant neoplasm of other digestive organs; Z79.4 Long term (current) use of insulin; Z79.899 Other long term (current) drug therapy; Z80.8 Family history of malignant neoplasm of other organs or systems; Z87.891 Personal history of nicotine dependence; Z90.5 Acquired absence of kidney

== ENCOUNTER 2024-06-28 14:57 | Emergency (ER) | payer OTHER ==
[~2024-06-28] VITALS: Ht 170.2 cm; Wt 116.8 kg
[2024-06-28 15:46] LABS: BASO # 0.1 10^3/uL (0.0-0.2); BASO % 0.6 % (0.0-1.0); EOS # 0.1 10^3/uL (0.0-0.5); EOS % 1.3 % (0.0-3.0); HEMATOCRIT 36.8 % (36.0-47.0); HEMOGLOBIN 11.6 g/dl (12.0-15.5); LYMPH # 1.7 10^3/uL (1.5-5.0); LYMPH % 18.2 % (24.0-44.0); MEAN CORPUSCULAR HEMOGLOBIN 27.4 pg (27.0-33.0); MEAN CORPUSCULAR HGB CONC 31.5 g/dl (32.0-36.5); MEAN CORPUSCULAR VOLUME 86.8 fl (80.0-96.0); MONO # 0.7 10^3/uL (0.0-0.8); NEUTROPHILS # 6.6 10^3/uL (1.5-8.5); NEUTROPHILS % 71.3 % (36.0-66.0); PLATELET COUNT, AUTOMATED 274 10^3/uL (150-450); RED BLOOD COUNT 4.24 10^6/uL (4.00-5.40); WHITE BLOOD COUNT 9.3 10^3/uL (4.0-10.0)
[2024-06-28 16:00] LABS: INR 1.15; PARTIAL THROMBOPLASTIN TIME 29.6 SECONDS (24.8-34.2); PROTHROMBIN TIME 14.4 SECONDS (12.5-14.5)
[2024-06-28 16:09] LABS: ALBUMIN 2.7 G/DL (3.2-5.2); BILIRUBIN,DIRECT 0.3 MG/DL (<0.4); BILIRUBIN,TOTAL 0.7 MG/DL (0.3-1.2); CALCIUM LEVEL 8.4 MG/DL (8.3-10.6); CREATININE FOR GFR 1.46 MG/DL (0.55-1.30); GLOMERULAR FILTRATION RATE 38.6 (>45); POTASSIUM SERUM 4.1 MMOL/L (3.5-5.1); TOTAL PROTEIN 6.7 G/DL (5.7-8.2)
[2024-06-28] MEDS ORDERED: ISOVUE-370 76% 100ML VIAL As Ordered ONE (17:26)
[2024-06-28] MEDS: ACETAMINOPHEN 325 MG TAB PO ONE (17:30)
[2024-06-28 22:31] VITALS: BP 143/64; TEMP 97.1; O2SAT 99
== END 2024-06-28 23:06 | disposition home or self-care (01) ==
LOC: M ED 14:57
DX: N85.00 Endometrial hyperplasia, unspecified (principal); N95.0 Postmenopausal bleeding; J98.11 Atelectasis; I31.39 Other pericardial effusion (noninflammatory); K44.9 Diaphragmatic hernia without obstruction or gangrene; D41.00 Neoplasm of uncertain behavior of unspecified kidney; D35.01 Benign neoplasm of right adrenal gland; K21.9 Gastro-esophageal reflux disease without esophagitis; E11.9 Type 2 diabetes mellitus without complications; E03.9 Hypothyroidism, unspecified; Z88.5 Allergy status to narcotic agent; Z79.02 Long term (current) use of antithrombotics/antiplatelets; Z79.899 Other long term (current) drug therapy
CPT/HCPCS: 36415; 74177; 76856; 80053; 81001; 82248; 83690; 85025; 85610; 85730; 86850; 86900; 86901; 87088; 87186; 99284; Q9967

== ENCOUNTER 2024-07-11 23:44 | Emergency (ER) | payer OTHER ==
[~2024-07-11] VITALS: Ht 170.2 cm; Wt 117.3 kg
[~2024-07-11 23:44] MED LIST changes: +OXYC-517 PO
[2024-07-12] MEDS: methylPREDNISolone 125MG 2ML VIAL IM ONE (03:07)
[2024-07-12] MEDS: KETOROLAC 30 MG/ML 1ML VIAL IM ONE (03:08)
[2024-07-12] MEDS: PERCOCET 5MG/325MG TAB PO ONE (04:16)
[2024-07-12] MEDS ORDERED: PERC5TAB12 PO (06:04)
[2024-07-12] MEDS ORDERED: MEDR4PAK PO (06:22)
[2024-07-12 06:23] VITALS: BP 174/97; TEMP 98; O2SAT 97
[2024-07-13] MEDS ORDERED: ENAL1TAB48 PO (14:23)
[2024-07-13] MEDS ORDERED: CYMB1CAP4 PO (15:19)
[2024-07-14] MEDS ORDERED: AMLO1TAB24 PO (12:56)
== END 2024-07-12 06:26 | disposition home or self-care (01) ==
LOC: EDBD 23:44 → M ED 23:44 → EDUNIT# 23:44 → M ED 07-12 06:26
DX: M16.12 Unilateral primary osteoarthritis, left hip (principal); E11.9 Type 2 diabetes mellitus without complications; E78.5 Hyperlipidemia, unspecified; E55.9 Vitamin D deficiency, unspecified; H81.4 Vertigo of central origin; E03.9 Hypothyroidism, unspecified; F19.10 Other psychoactive substance abuse, uncomplicated; Z88.5 Allergy status to narcotic agent; Z79.4 Long term (current) use of insulin; Z79.899 Other long term (current) drug therapy; Z79.02 Long term (current) use of antithrombotics/antiplatelets
CPT/HCPCS: 73501; 73700; 96372; 99284; J1885; J2919

== ENCOUNTER → 2024-07-13 | Outpatient (CLI) | payer OTHER ==
[~2024-07-13] VITALS: Ht 170.2 cm; Wt 117.0 kg
[~2024-07-13] MED LIST changes: +AMLO1TAB24 PO; +CYMB1CAP4 PO; +ENAL1TAB48 PO; +MEDR4PAK PO; +PERC5TAB12 PO
[2024-07-13 14:17] VITALS: BP 187/98; O2SAT 98
== END ==
LOC: M PAL 12:54
PROVIDERS: ATTEND Family Medicine
DX: G89.3 Neoplasm related pain (acute) (chronic) (principal); G89.29 Other chronic pain; E11.9 Type 2 diabetes mellitus without complications; I12.9 Hypertensive chronic kidney disease with stage 1 through stage 4 chronic kidney disease, or unspecified chronic kidney disease; N18.4 Chronic kidney disease, stage 4 (severe); M16.0 Bilateral primary osteoarthritis of hip; C64.2 Malignant neoplasm of left kidney, except renal pelvis; C79.51 Secondary malignant neoplasm of bone; Z51.5 Encounter for palliative care; Z92.21 Personal history of antineoplastic chemotherapy; Z92.3 Personal history of irradiation; Z79.899 Other long term (current) drug therapy; Z66 Do not resuscitate; Z79.4 Long term (current) use of insulin; Z79.890 Hormone replacement therapy; Z88.5 Allergy status to narcotic agent

== ENCOUNTER 2024-07-14 15:02 | Outpatient (RCR) | payer OTHER | END 2024-07-23 | LOC: M ONCR 15:02 | PROVIDERS: ATTEND General Practice | DX: Z51.0 Encounter for antineoplastic radiation therapy (principal); C79.51 Secondary malignant neoplasm of bone ==

== ENCOUNTER → 2024-08-05 | Outpatient (REF) | payer OTHER ==
[~2024-08-05] MED LIST changes: +ATEN25TA PO
== END ==
LOC: M LAB REF 10:20
PROVIDERS: ATTEND Internal Medicine Medical Oncology
DX: C64.9 Malignant neoplasm of unspecified kidney, except renal pelvis (principal)

== ENCOUNTER → 2024-08-31 | Outpatient (CLI) | payer OTHER ==
[~2024-08-31] MED LIST changes: +OMEP-611 PO; -OMEP20TA2 PO
== END ==
LOC: M RAD 13:37
PROVIDERS: ATTEND Internal Medicine Medical Oncology
DX: C64.9 Malignant neoplasm of unspecified kidney, except renal pelvis (principal)

== ENCOUNTER → 2024-09-21 | Outpatient (CLI) | payer OTHER ==
[2024-09-21 11:35] LABS: FREE T4 0.34 NG/DL (0.89-1.76); THYROID STIMULATING HORMONE 137.447 uIU/ML (0.55-4.78)
[2024-09-21 12:09] LABS: THYROID PEROXIDASE ANTIBODY > 1300.0 U/ML (<60.0)
== END ==
LOC: M LAB 10:02
PROVIDERS: ATTEND Nurse Practitioner Family
DX: E05.90 Thyrotoxicosis, unspecified without thyrotoxic crisis or storm (principal)

== ENCOUNTER → 2024-10-15 | Outpatient (CLI) | payer OTHER | LOC: M ONCR 13:30 | PROVIDERS: ATTEND General Practice | DX: C79.51 Secondary malignant neoplasm of bone (principal); C64.2 Malignant neoplasm of left kidney, except renal pelvis; C64.1 Malignant neoplasm of right kidney, except renal pelvis; Z90.5 Acquired absence of kidney; Z92.3 Personal history of irradiation; Z79.620 Long term (current) use of immunosuppressive biologic; Z79.622 Long term (current) use of Janus kinase inhibitor; Z88.5 Allergy status to narcotic agent; Z79.890 Hormone replacement therapy; Z79.4 Long term (current) use of insulin; Z79.899 Other long term (current) drug therapy ==

== ENCOUNTER → 2024-10-19 | Outpatient (REF) | payer OTHER ==
[~2024-10-19] MED LIST changes: +ATIV1TAB7 PO; +LEVO-88 PO; +TRIA1CR80 TOP
[2024-10-19 12:34] LABS: ALBUMIN 2.9 G/DL (3.2-5.2); BILIRUBIN,TOTAL 0.8 MG/DL (0.3-1.2); CALCIUM LEVEL 9.2 MG/DL (8.3-10.6); CREATININE FOR GFR 1.96 MG/DL (0.55-1.30); GLOMERULAR FILTRATION RATE 27.5 (>45); POTASSIUM SERUM 4.6 MMOL/L (3.5-5.1); TOTAL PROTEIN 6.6 G/DL (5.7-8.2)
== END ==
LOC: M LAB REF 11:49
PROVIDERS: ATTEND Nurse Practitioner Family
DX: C64.2 Malignant neoplasm of left kidney, except renal pelvis (principal); R93.89 Abnormal findings on diagnostic imaging of other specified body structures; M89.8X1 Other specified disorders of bone, shoulder; N18.4 Chronic kidney disease, stage 4 (severe); I10 Essential (primary) hypertension; I51.89 Other ill-defined heart diseases; E11.42 Type 2 diabetes mellitus with diabetic polyneuropathy; K21.9 Gastro-esophageal reflux disease without esophagitis; M25.551 Pain in right hip; M25.552 Pain in left hip; E03.9 Hypothyroidism, unspecified; E66.9 Obesity, unspecified; R20.2 Paresthesia of skin; Z87.891 Personal history of nicotine dependence

== ENCOUNTER → 2024-10-29 | Outpatient (CLI) | payer OTHER | LOC: M SLEEP HO 10:39 | PROVIDERS: ATTEND Physician Assistant | DX: G47.33 Obstructive sleep apnea (adult) (pediatric) (principal); R06.83 Snoring ==

== ENCOUNTER → 2024-11-04 | Outpatient (CLI) | payer OTHER ==
[~2024-11-04] MED LIST changes: +PROHANCE 279.3MG/ML 5ML VIAL As Ordered ONE
== END ==
LOC: M RAD 14:11
PROVIDERS: ATTEND General Practice
DX: C79.51 Secondary malignant neoplasm of bone (principal); M50.90 Cervical disc disorder, unspecified, unspecified cervical region; M43.02 Spondylolysis, cervical region; M25.78 Osteophyte, vertebrae
CPT/HCPCS: 72156; A9576

== ENCOUNTER → 2024-11-06 | Outpatient (CLI) | payer OTHER ==
[~2024-11-06] MED LIST changes: +AMLO2.5T3; +LEVO112T2 PO; -PROHANCE 279.3MG/ML 5ML VIAL As Ordered ONE
== END ==
LOC: M ONCR 13:21
PROVIDERS: ATTEND General Practice
DX: C79.51 Secondary malignant neoplasm of bone (principal); C64.1 Malignant neoplasm of right kidney, except renal pelvis; C64.2 Malignant neoplasm of left kidney, except renal pelvis; S81.802A Unspecified open wound, left lower leg, initial encounter; E03.9 Hypothyroidism, unspecified; Z79.4 Long term (current) use of insulin; Z79.890 Hormone replacement therapy; Z79.899 Other long term (current) drug therapy; Z88.5 Allergy status to narcotic agent; Z87.891 Personal history of nicotine dependence; Z92.3 Personal history of irradiation; Z90.5 Acquired absence of kidney

== ENCOUNTER → 2024-11-25 | Outpatient (CLI) | payer OTHER ==
[~2024-11-25] MED LIST changes: +LEVO150T7 PO
== END ==
LOC: M PLAIMG 10:23
PROVIDERS: ATTEND Internal Medicine Medical Oncology
DX: C64.9 Malignant neoplasm of unspecified kidney, except renal pelvis (principal)

== ENCOUNTER → 2024-11-25 | Outpatient (CLI) | payer OTHER ==
[2024-11-25 13:15] LABS: FREE T4 1.14 NG/DL (0.89-1.76); THYROID STIMULATING HORMONE 68.966 uIU/ML (0.55-4.78)
== END ==
LOC: M LAB 11:34
PROVIDERS: ATTEND Nurse Practitioner Family
DX: E05.90 Thyrotoxicosis, unspecified without thyrotoxic crisis or storm (principal)

== ENCOUNTER 2024-12-14 18:43 | Emergency (ER) | payer OTHER ==
[~2024-12-14] VITALS: Ht 170.2 cm; Wt 121.7 kg
[2024-12-14 19:41] LABS: BASO # 0.1 10^3/uL (0.0-0.2); BASO % 0.6 % (0.0-1.0); EOS # 0.2 10^3/uL (0.0-0.5); EOS % 2.9 % (0.0-3.0); HEMATOCRIT 40.5 % (36.0-47.0); HEMOGLOBIN 13.4 g/dl (12.0-15.5); LYMPH # 1.1 10^3/uL (1.5-5.0); LYMPH % 13.4 % (24.0-44.0); MEAN CORPUSCULAR HEMOGLOBIN 33.2 pg (27.0-33.0); MEAN CORPUSCULAR HGB CONC 33.1 g/dl (32.0-36.5); MEAN CORPUSCULAR VOLUME 100.2 fl (80.0-96.0); MONO # 0.6 10^3/uL (0.0-0.8); NEUTROPHILS # 5.9 10^3/uL (1.5-8.5); NEUTROPHILS % 74.6 % (36.0-66.0); PLATELET COUNT, AUTOMATED 255 10^3/uL (150-450); RED BLOOD COUNT 4.04 10^6/uL (4.00-5.40); WHITE BLOOD COUNT 7.9 10^3/uL (4.0-10.0)
[2024-12-14 19:50] LABS: KETONE, URINE AUTO RFX NEGATIVE (NEGATIVE); LEUKOCYTE ESTERASE UR AUTO RFX NEGATIVE (NEGATIVE); MUCUS, URINE RFX SMALL (NEGATIVE); NITRITE, URINE AUTO RFX NEGATIVE (NEGATIVE); RBC, URINE AUTO RFX 0 /HPF (0-3); SQUAM EPITHELIAL CELL UR AURFX 5 /HPF (0-6); WBC, URINE AUTO RFX 3 /HPF (0-3)
[2024-12-14 19:56] LABS: ALBUMIN 3.5 G/DL (3.2-5.2); BILIRUBIN,DIRECT 0.4 MG/DL (<0.4); BILIRUBIN,TOTAL 1.1 MG/DL (0.3-1.2); CREATININE FOR GFR 1.97 MG/DL (0.55-1.30); GLOMERULAR FILTRATION RATE 27.3 (>45); POTASSIUM SERUM 3.6 MMOL/L (3.5-5.1); TOTAL PROTEIN 7.7 G/DL (5.7-8.2)
[2024-12-15 03:28] VITALS: TEMP 97.4
[2024-12-15 07:25] VITALS: O2SAT 99
[2024-12-15 08:31] VITALS: BP 101/50
[2024-12-15] MEDS: NS 500 ML IV ONE (09:00)
== END 2024-12-15 09:57 | disposition home or self-care (01) ==
LOC: M ED 18:43
DX: R42 Dizziness and giddiness (principal); H93.11 Tinnitus, right ear; E11.9 Type 2 diabetes mellitus without complications; I10 Essential (primary) hypertension; E03.9 Hypothyroidism, unspecified; Z88.5 Allergy status to narcotic agent; Z79.02 Long term (current) use of antithrombotics/antiplatelets; Z79.899 Other long term (current) drug therapy

== ENCOUNTER → 2024-12-21 | Outpatient (CLI) | payer OTHER | LOC: M PLARAD 07:12 | PROVIDERS: ATTEND Internal Medicine Medical Oncology | DX: C64.2 Malignant neoplasm of left kidney, except renal pelvis (principal) | CPT/HCPCS: 78815; A9552 ==

== ENCOUNTER → 2025-04-06 | Outpatient (REF) | payer OTHER ==
[~2025-04-06] MED LIST changes: -AMLO2.5T3; +AMLO2.5T3 PO; +DULO1CAP4 PO; +HYDR-643 PO; +MECL-86 PO; -POTA-298; +POTA-298 PO; -PREG25CA PO; +PREG25CA63 PO
[2025-04-06 18:49] LABS: ALT/SGPT 13.0 U/L (7.0-40); AST/SGOT 14.0 U/L (<34); CALCIUM LEVEL 8.7 MG/DL (8.3-10.6); CARBON DIOXIDE LEVEL 24.0 MMOL/L (20-31); CHLORIDE LEVEL 103.0 MMOL/L (98-107); CREATININE FOR GFR 1.77 MG/DL (0.55-1.30); GLOMERULAR FILTRATION RATE 31.9 (>45); MAGNESIUM LEVEL 1.8 MG/DL (1.8-2.4); POTASSIUM SERUM 4.8 MMOL/L (3.5-5.1); SODIUM LEVEL 139.0 MMOL/L (136-145)
[2025-04-06 18:50] LABS: BASO # 0.1 10^3/uL (0.0-0.2); BASO % 0.5 % (0.0-1.0); EOS # 0.2 10^3/uL (0.0-0.5); EOS % 1.4 % (0.0-3.0); LYMPH # 1.2 10^3/uL (1.5-5.0); LYMPH % 11.7 % (24.0-44.0); MONO # 0.7 10^3/uL (0.0-0.8); MONO % 6.6 % (2.0-8.0); NEUTROPHILS # 8.3 10^3/uL (1.5-8.5); NEUTROPHILS % 79.1 % (36.0-66.0); PLATELET COUNT, AUTOMATED 425 10^3/uL (150-450)
[2025-04-06 18:53] LABS: FREE T4 1.38 NG/DL (0.89-1.76)
[2025-04-06 19:16] LABS: ESTIMATED AVERAGE GLUCOSE 157.0 MG/DL (60-110)
== END ==
LOC: M SFHCCLAY 11:05
PROVIDERS: ATTEND Nurse Practitioner Family
DX: D64.9 Anemia, unspecified (principal); C64.2 Malignant neoplasm of left kidney, except renal pelvis; R93.89 Abnormal findings on diagnostic imaging of other specified body structures; M89.8X1 Other specified disorders of bone, shoulder; N18.4 Chronic kidney disease, stage 4 (severe); I12.9 Hypertensive chronic kidney disease with stage 1 through stage 4 chronic kidney disease, or unspecified chronic kidney disease; I51.89 Other ill-defined heart diseases; E11.42 Type 2 diabetes mellitus with diabetic polyneuropathy; K21.9 Gastro-esophageal reflux disease without esophagitis; M25.551 Pain in right hip; M25.552 Pain in left hip; E03.9 Hypothyroidism, unspecified; E66.9 Obesity, unspecified; R20.2 Paresthesia of skin; Z87.891 Personal history of nicotine dependence; R25.2 Cramp and spasm

== ENCOUNTER → 2025-05-04 | Outpatient (CLI) | payer OTHER ==
[~2025-05-04] MED LIST changes: +GABA-1171
== END ==
LOC: M PLAIMG 12:15
PROVIDERS: ATTEND Nurse Practitioner Family
DX: C64.2 Malignant neoplasm of left kidney, except renal pelvis (principal); R05.3 Chronic cough; K80.20 Calculus of gallbladder without cholecystitis without obstruction; I31.39 Other pericardial effusion (noninflammatory); D17.4 Benign lipomatous neoplasm of intrathoracic organs

== ENCOUNTER → 2025-05-10 | Outpatient (CLI) | payer OTHER | LOC: M PLARAD 13:11 | PROVIDERS: ATTEND Internal Medicine Hematology & Oncology | DX: C64.9 Malignant neoplasm of unspecified kidney, except renal pelvis (principal) | CPT/HCPCS: 78815; A9552 ==

== ENCOUNTER → 2025-05-11 | Outpatient (CLI) | payer OTHER | LOC: M RAD 13:19 | PROVIDERS: ATTEND Physician Assistant | DX: I87.332 Chronic venous hypertension (idiopathic) with ulcer and inflammation of left lower extremity (principal); I87.331 Chronic venous hypertension (idiopathic) with ulcer and inflammation of right lower extremity; I70.203 Unspecified atherosclerosis of native arteries of extremities, bilateral legs ==

== ENCOUNTER 2025-05-13 12:50 | Emergency (ER) | payer OTHER ==
[~2025-05-13] VITALS: Ht 170.2 cm; Wt 111.8 kg
[2025-05-13 15:38] LABS: BASO # 0.0 10^3/uL (0.0-0.2); BASO % 0.3 % (0.0-1.0); EOS # 0.1 10^3/uL (0.0-0.5); EOS % 1.2 % (0.0-3.0); LYMPH # 1.0 10^3/uL (1.5-5.0); LYMPH % 10.0 % (24.0-44.0); MONO # 0.7 10^3/uL (0.0-0.8); MONO % 6.8 % (2.0-8.0); NEUTROPHILS # 7.7 10^3/uL (1.5-8.5); NEUTROPHILS % 81.1 % (36.0-66.0); PLATELET COUNT, AUTOMATED 444 10^3/uL (150-450)
[2025-05-13 16:45] LABS: OSMOLALITY SERUM 303.0 MOSM/KG (280-301)
[2025-05-13 16:57] LABS: ALT/SGPT 13.0 U/L (7.0-40); AST/SGOT 15.0 U/L (<34); CALCIUM LEVEL 8.6 MG/DL (8.3-10.6); CARBON DIOXIDE LEVEL 25.0 MMOL/L (20-31); CHLORIDE LEVEL 107.0 MMOL/L (98-107); CREATININE FOR GFR 1.88 MG/DL (0.55-1.30); GLOMERULAR FILTRATION RATE 29.7 (>45); POTASSIUM SERUM 4.6 MMOL/L (3.5-5.1); SODIUM LEVEL 143.0 MMOL/L (136-145)
[2025-05-13 17:36] LABS: THYROXINE (T4) 6.6 UG/DL (4.5-10.9)
[2025-05-13 18:47] LABS: T UPTAKE 45.9 % (22.5-37.0)
[2025-05-13] MEDS ORDERED: PROHANCE 279.3MG/ML 5ML VIAL As Ordered ONE (20:00)
[2025-05-13] MEDS ORDERED: PROHANCE 279.3MG/ML 15ML VIAL As Ordered ONE (20:01)
[2025-05-13] MEDS: levETIRAcetam INJection 1,000 MG in IV 1 EA IV ONE (22:04)
[2025-05-14 01:42] VITALS: BP 126/64; TEMP 97.7; O2SAT 100
== END 2025-05-14 02:38 | disposition short-term general hospital (02) ==
LOC: M ED 12:50
DX: G93.6 Cerebral edema (principal); C79.31 Secondary malignant neoplasm of brain; E11.9 Type 2 diabetes mellitus without complications; G47.33 Obstructive sleep apnea (adult) (pediatric); E03.9 Hypothyroidism, unspecified; N18.30 Chronic kidney disease, stage 3 unspecified; Z87.891 Personal history of nicotine dependence; Z88.5 Allergy status to narcotic agent; Z79.4 Long term (current) use of insulin; Z79.899 Other long term (current) drug therapy
CPT/HCPCS: 70553; 80048; 80076; 82140; 83930; 84436; 84443; 84479; 85025; 93005; 93041; 94760; 96365; 96375; 99285; A9576; J1100; J1953

== ENCOUNTER 2025-06-10 09:51 | Emergency (ER) | payer OTHER ==
[~2025-06-10] VITALS: Ht 170.2 cm; Wt 106.1 kg
[2025-06-10 10:46] LABS: BASO # 0.0 10^3/uL (0.0-0.2); BASO % 0.3 % (0.0-1.0); EOS # 0.0 10^3/uL (0.0-0.5); EOS % 0.6 % (0.0-3.0); LYMPH # 0.5 10^3/uL (1.5-5.0); LYMPH % 7.7 % (24.0-44.0); MONO # 0.5 10^3/uL (0.0-0.8); MONO % 8.5 % (2.0-8.0); NEUTROPHILS # 5.2 10^3/uL (1.5-8.5); NEUTROPHILS % 82.4 % (36.0-66.0); PLATELET COUNT, AUTOMATED 224 10^3/uL (150-450)
[2025-06-10] MEDS: MECLIZINE 25 MG TABLET PO ONE (11:01)
[2025-06-10 11:06] LABS: CALCIUM LEVEL 8.8 MG/DL (8.3-10.6); CARBON DIOXIDE LEVEL 26.0 MMOL/L (20-31); CHLORIDE LEVEL 105.0 MMOL/L (98-107); CREATININE FOR GFR 1.53 MG/DL (0.55-1.30); GLOMERULAR FILTRATION RATE 38.0 (>45); MAGNESIUM LEVEL 1.8 MG/DL (1.8-2.4); POTASSIUM SERUM 4.2 MMOL/L (3.5-5.1); SODIUM LEVEL 141.0 MMOL/L (136-145)
[2025-06-10 11:31] LABS: ALT/SGPT 11.0 U/L (7.0-40); AST/SGOT 13.0 U/L (<34)
[2025-06-10 13:01] VITALS: O2SAT 98
[2025-06-10] MEDS ORDERED: MECL-209 PO (13:29)
[2025-06-10 13:57] VITALS: BP 143/63; TEMP 96.9; O2SAT 100
[2025-06-11] MEDS ORDERED: DEXA2TA PO (10:25)
[2025-06-11] MEDS ORDERED: DEXA4TA PO (10:33)
== END 2025-06-10 14:08 | disposition home or self-care (01) ==
LOC: M ED 09:51
DX: H81.4 Vertigo of central origin (principal); C79.31 Secondary malignant neoplasm of brain; C64.9 Malignant neoplasm of unspecified kidney, except renal pelvis; E11.9 Type 2 diabetes mellitus without complications; K58.9 Irritable bowel syndrome, unspecified; Z88.5 Allergy status to narcotic agent; Z79.02 Long term (current) use of antithrombotics/antiplatelets; Z79.899 Other long term (current) drug therapy; Z79.4 Long term (current) use of insulin

== ENCOUNTER 2025-06-18 07:42 | Outpatient (RCR) | payer OTHER ==
[~2025-06-18 07:42] MED LIST changes: +DEXA2TA PO; +DEXA4TA PO; +MECL-209 PO
== END 2025-06-22 ==
LOC: M ONCR 07:42
PROVIDERS: ATTEND General Practice
DX: Z51.0 Encounter for antineoplastic radiation therapy (principal); C79.51 Secondary malignant neoplasm of bone

== ENCOUNTER → 2025-06-29 | Outpatient (REF) | payer OTHER ==
[~2025-06-29] MED LIST changes: +ELIQ5TAB PO; +ENOX40IN3 SC; +INSU100I24 SUBQ; +LEVO137T2 PO; +NITR4TASL SL
== END ==
LOC: M SFHCCLAY 17:16
PROVIDERS: ATTEND Physician Assistant
DX: R30.0 Dysuria (principal)

== ENCOUNTER 2025-07-06 12:12 | Emergency (ER) | payer OTHER ==
[~2025-07-06] VITALS: Ht 170.2 cm; Wt 92.8 kg
[~2025-07-06 12:12] MED LIST changes: -ELIQ5TAB PO; -ENOX40IN3 SC; -INSU100I24 SUBQ; -LEVO137T2 PO; -NITR4TASL SL
[2025-07-06 12:52] LABS: BASO # 0.0 10^3/uL (0.0-0.2); BASO % 0.1 % (0.0-1.0); EOS # 0.0 10^3/uL (0.0-0.5); EOS % 0.1 % (0.0-3.0); LYMPH # 0.4 10^3/uL (1.5-5.0); LYMPH % 3.0 % (24.0-44.0); MONO # 0.9 10^3/uL (0.0-0.8); MONO % 6.1 % (2.0-8.0); NEUTROPHILS # 12.7 10^3/uL (1.5-8.5); NEUTROPHILS % 89.6 % (36.0-66.0); PLATELET COUNT, AUTOMATED 187 10^3/uL (150-450)
[2025-07-06 13:09] LABS: CALCIUM LEVEL 8.8 MG/DL (8.3-10.6); CARBON DIOXIDE LEVEL 22.0 MMOL/L (20-31); CHLORIDE LEVEL 104.0 MMOL/L (98-107); CK-MB VALUE MASS 1.1 NG/ML (<3.6); CREATININE FOR GFR 1.56 MG/DL (0.55-1.30); GLOMERULAR FILTRATION RATE 37.1 (>45); POTASSIUM SERUM 4.5 MMOL/L (3.5-5.1); SODIUM LEVEL 138.0 MMOL/L (136-145)
[2025-07-06 13:13] LABS: CPK CREATINE PHOSPHOKINASE 30.0 U/L (34-145); MB/CK RELATIVE INDEX 3.66 (< OR =4)
[2025-07-06] MEDS ORDERED: ISOVUE-370 76% 100 ML VIAL As Ordered ONE (13:53)
[2025-07-06] MEDS ORDERED: LEVO137T2 PO (14:37)
[2025-07-06] MEDS ORDERED: HOME MED LIST COMPLETE! XX SCH (14:40)
[2025-07-06] MEDS: APIXABAN 5 MG TAB PO ONE (15:52)
[2025-07-06] MEDS ORDERED: ELIQ5TAB PO (15:53)
[2025-07-06 16:03] VITALS: BP 163/70; TEMP 96.5; O2SAT 99
== END 2025-07-06 16:05 | disposition home or self-care (01) ==
LOC: M ED 12:12 → EDBD 12:12 → M ED 16:05
DX: I26.93 Single subsegmental thrombotic pulmonary embolism without acute cor pulmonale (principal); I51.7 Cardiomegaly; J90 Pleural effusion, not elsewhere classified; J98.11 Atelectasis; R00.0 Tachycardia, unspecified; E03.1 Congenital hypothyroidism without goiter; I10 Essential (primary) hypertension; E78.5 Hyperlipidemia, unspecified; E11.9 Type 2 diabetes mellitus without complications; G47.30 Sleep apnea, unspecified; N18.9 Chronic kidney disease, unspecified; Z79.01 Long term (current) use of anticoagulants; Z79.02 Long term (current) use of antithrombotics/antiplatelets; Z79.4 Long term (current) use of insulin; Z79.899 Other long term (current) drug therapy
CPT/HCPCS: 36415; 71045; 71275; 80048; 82550; 82553; 84484; 85025; 93005; 93041; 94760; 99285; Q9967

== ENCOUNTER → 2025-07-07 | Outpatient (CLI) | payer OTHER ==
[~2025-07-07] MED LIST changes: +ELIQ5TAB PO; +ENOX40IN3 SC; +INSU100I24 SUBQ; +LEVO137T2 PO; +NITR4TASL SL
[2025-07-07 12:26] LABS: APPEARANCE, URINE CLOUDY (CLEAR); BACTERIA, URINE AUTO NEGATIVE (NEGATIVE); BILIRUBIN, URINE AUTO NEGATIVE (NEGATIVE); BLOOD, URINE BLOOD NEGATIVE (NEGATIVE); GLUCOSE, URINE (UA) AUTO NEGATIVE (NEGATIVE); KETONE, URINE AUTO NEGATIVE (NEGATIVE); LEUKOCYTE ESTERASE, URINE AUTO NEGATIVE (NEGATIVE); NITRITE, URINE AUTO NEGATIVE (NEGATIVE); PROTEIN, URINE AUTO 2+ mg/dL (NEGATIVE); RBC, URINE AUTO 3 /HPF (0-3); SPECIFIC GRAVITY URINE AUTO 1.026 (1.002-1.035); SQUAMOUS EPITHELIAL CELL UR AU 20 /HPF (0-6); UROBILINOGEN, URINE AUTO 0.2 mg/dL (0.0-2.0); WBC, URINE AUTO 1 /HPF (0-3)
== END ==
LOC: M LAB 11:58
PROVIDERS: ATTEND Nurse Practitioner Family
DX: N30.01 Acute cystitis with hematuria (principal)

== ENCOUNTER 2025-07-09 13:34 | Observation (INO) | payer OTHER ==
[~2025-07-09] VITALS: Ht 170.2 cm; Wt 110.9 kg
[~2025-07-09 13:34] MED LIST changes: -ENOX40IN3 SC; -INSU100I24 SUBQ; -NITR4TASL SL
[2025-07-09 14:25] LABS: BASO # 0.0 10^3/uL (0.0-0.2); BASO % 0.2 % (0.0-1.0); EOS # 0.0 10^3/uL (0.0-0.5); EOS % 0.0 % (0.0-3.0); LYMPH # 0.3 10^3/uL (1.5-5.0); LYMPH % 2.4 % (24.0-44.0); MONO # 0.4 10^3/uL (0.0-0.8); MONO % 3.9 % (2.0-8.0); NEUTROPHILS # 9.9 10^3/uL (1.5-8.5); NEUTROPHILS % 92.7 % (36.0-66.0)
[2025-07-09 14:52] LABS: PLATELET COUNT, AUTOMATED 189 10^3/uL (150-450)
[2025-07-09 15:01] LABS: ALT/SGPT 23.0 U/L (7.0-40); AST/SGOT 37.0 U/L (<34); CALCIUM LEVEL 9.0 MG/DL (8.3-10.6); CARBON DIOXIDE LEVEL 20.0 MMOL/L (20-31); CHLORIDE LEVEL 109.0 MMOL/L (98-107); CK-MB VALUE MASS 1.3 NG/ML (<3.6); CPK CREATINE PHOSPHOKINASE 53.0 U/L (34-145); CREATININE FOR GFR 1.42 MG/DL (0.55-1.30); GLOMERULAR FILTRATION RATE 41.6 (>45); MB/CK RELATIVE INDEX 2.45 (< OR =4); POTASSIUM SERUM 5.7 MMOL/L (3.5-5.1); SODIUM LEVEL 140.0 MMOL/L (136-145)
[2025-07-09] MEDS ORDERED: ISOVUE-370 76% 100 ML VIAL As Ordered ONE (15:19)
[2025-07-09] MEDS: ASPIRIN 81 MG CHEWABLE TABLET PO ONE (15:22)
[2025-07-09] MEDS: NITROGLYCERIN 0.4 MG SUBL TABLET SL PRN (15:23)
[2025-07-09 16:47] LABS: POTASSIUM SERUM 4.9 MMOL/L (3.5-5.1)
[2025-07-09 16:54] LABS: CK-MB VALUE MASS 1.7 NG/ML (<3.6)
[2025-07-09 16:56] LABS: CPK CREATINE PHOSPHOKINASE 30.0 U/L (34-145); MB/CK RELATIVE INDEX 5.66 (< OR =4)
[2025-07-09] MEDS ORDERED: ENOXAPARIN 100 MG/1 ML SYRINGE (J1650 PER 10MG) SC SCH (17:55)
[2025-07-09] MEDS ORDERED: DEXTROSE 50% 50 ML SYRINGE IV PRN (18:00)
[2025-07-09] MEDS ORDERED: NITROGLYCERIN 0.4 MG SUBL TABLET SL PRN (18:00)
[2025-07-09] MEDS ORDERED: GLUCAGON INJ 1 MG VIAL SC PRN (18:00)
[2025-07-09] MEDS ORDERED: GLUCOSE 4 GM CHEW PO PRN (18:00)
[2025-07-09 18:37] LABS: CREATININE FOR GFR 1.47 MG/DL (0.55-1.30); GLOMERULAR FILTRATION RATE 39.9 (>45)
[2025-07-09] MEDS ORDERED: INSU100I24 SUBQ (18:42)
[2025-07-09] MEDS ORDERED: DEXA4TA PO (18:42)
[2025-07-09] MEDS ORDERED: GABA-1171 PO (18:42)
[2025-07-09] MEDS ORDERED: HOME MED LIST COMPLETE! XX SCH (18:45)
[2025-07-09] MEDS: SUCRALFATE 1 GM TAB PO SCH (18:52)
[2025-07-09] MEDS: METOPROLOL TART 25 MG TABLET PO ONE (18:53)
[2025-07-09 18:54] LABS: INR 1.59
[2025-07-09] MEDS: INSULIN LISPRO (NovoLOG) PER UNIT SC SCH ×2 (19:24→21:00)
[2025-07-09] MEDS: NS (Normal Saline) 0.9% 1,000 ML IV SCH (19:40)
[2025-07-09] MEDS: LanTUS (INSULIN GLARGINE INJ) 1 UNITS/0.01 ML SC SCH (21:28)
[2025-07-09] MEDS: GABAPENTIN 100 MG CAP PO SCH (21:29)
[2025-07-09 22:00] VITALS: BP 131/60; PULSE 64; TEMP 97; O2SAT 100
[2025-07-10] VITALS (7 sets, daily range): BP systolic 128–138; BP diastolic 59–65; PULSE 51–64; TEMP 96.7–97.2; O2SAT 99–100
[2025-07-10 01:24] LABS: CPK CREATINE PHOSPHOKINASE 28 U/L (34-145)
[2025-07-10 01:27] LABS: CK-MB VALUE MASS < 1.0 NG/ML (<3.6)
[2025-07-10] MEDS: ACETAMINOPHEN *IV* 1,000 MG in IV 1 EA IV ONE (04:53)
[2025-07-10] MEDS: ENOXAPARIN 100 MG/1 ML SYRINGE (J1650 PER 10MG) SC SCH (04:54)
[2025-07-10] MEDS: MECLIZINE 25 MG TABLET PO PRN (04:54)
[2025-07-10] MEDS: LEVOTHYROXINE 137 MCG TABLET (0.137 MG) PO SCH (05:01)
[2025-07-10 06:34] LABS: CK-MB VALUE MASS < 1.0 NG/ML (<3.6)
[2025-07-10 06:41] LABS: CPK CREATINE PHOSPHOKINASE 31 U/L (34-145)
[2025-07-10] MEDS ORDERED: ENOX40IN3 SC (07:04)
[2025-07-10] MEDS ORDERED: CARA1TAB6 PO (07:04)
[2025-07-10] MEDS ORDERED: PANT40TA29 PO (07:04)
[2025-07-10] MEDS ORDERED: NITR4TASL SL (07:04)
[2025-07-10 07:45] LABS: BASO # 0.0 10^3/uL (0.0-0.2); BASO % 0.1 % (0.0-1.0); EOS # 0.0 10^3/uL (0.0-0.5); EOS % 0.0 % (0.0-3.0); LYMPH # 0.5 10^3/uL (1.5-5.0); LYMPH % 4.9 % (24.0-44.0); MONO # 0.4 10^3/uL (0.0-0.8); MONO % 4.1 % (2.0-8.0); NEUTROPHILS # 8.8 10^3/uL (1.5-8.5); NEUTROPHILS % 90.0 % (36.0-66.0); PLATELET COUNT, AUTOMATED 195 10^3/uL (150-450)
[2025-07-10 08:36] LABS: ALT/SGPT 15 U/L (7.0-40); AST/SGOT 11 U/L (<34); CALCIUM LEVEL 8.6 MG/DL (8.3-10.6); CARBON DIOXIDE LEVEL 22 MMOL/L (20-31); CHLORIDE LEVEL 108 MMOL/L (98-107); CREATININE FOR GFR 1.46 MG/DL (0.55-1.30); GLOMERULAR FILTRATION RATE 40.2 (>45); POTASSIUM SERUM 4.9 MMOL/L (3.5-5.1); SODIUM LEVEL 141 MMOL/L (136-145)
[2025-07-10] MEDS: ATORVASTATIN 20 MG TAB PO SCH (09:32)
[2025-07-10] MEDS: LORATADINE 10 MG TAB PO SCH (09:32)
[2025-07-10] MEDS: DOCUSATE SODIUM 100 MG CAPSULE PO SCH (09:32)
[2025-07-10] MEDS: PANTOPRAZOLE 40MG TAB PO SCH (09:32)
[2025-07-10] MEDS: VITAMIN D 1,000 INTERNATIONAL UNITS TABLET PO SCH (09:32)
[2025-07-10 12:31] LABS: CK-MB VALUE MASS < 1.0 NG/ML (<3.6)
[2025-07-10 12:32] LABS: CPK CREATINE PHOSPHOKINASE 29 U/L (34-145)
== END 2025-07-10 15:21 | disposition home or self-care (01) ==
LOC: M ED 13:34 → M ED INP 17:51 → INTOOBSV 17:51 → M PCU 21:28
PROVIDERS: ADMIT General Practice; ATTEND General Practice
DX: I26.99 Other pulmonary embolism without acute cor pulmonale (principal); R07.9 Chest pain, unspecified; E11.9 Type 2 diabetes mellitus without complications; N18.4 Chronic kidney disease, stage 4 (severe); E03.9 Hypothyroidism, unspecified; Z85.528 Personal history of other malignant neoplasm of kidney; C79.31 Secondary malignant neoplasm of brain; Z92.3 Personal history of irradiation; Z79.899 Other long term (current) drug therapy; Z79.4 Long term (current) use of insulin
CPT/HCPCS: 36415; 71045; 71275; 76705; 80048; 80076; 82550; 82553; 82565; 83690; 84132; 84145; 84484; 85025; 85610; 85730; 93005; 93041; 93306; 94760; 96374; 97161; 99285; J0131; J1650; J1815; Q9967

== ENCOUNTER 2025-07-12 11:42 | Outpatient (RCR) | payer OTHER ==
[~2025-07-12 11:42] MED LIST changes: +BUPR-363 PO; -BUPR75TA5 PO; +ENOX40IN3 SC; +INSU100I24 SUBQ; +NITR4TASL SL
[2025-07-20] MEDS ORDERED: ENOX100I3 SC (17:15)
[2025-07-20] MEDS ORDERED: SUCR1TAB56 PO (18:03)
== END 2025-07-23 ==
LOC: M ONCR 11:42
PROVIDERS: ATTEND General Practice
DX: Z51.0 Encounter for antineoplastic radiation therapy (principal); C79.31 Secondary malignant neoplasm of brain

== ENCOUNTER 2025-07-16 08:12 | Emergency (ER) | payer OTHER ==
[~2025-07-16] VITALS: Ht 170.2 cm; Wt 105.5 kg
[~2025-07-16 08:12] MED LIST changes: -BUPR-363 PO; +BUPR75TA5 PO
[2025-07-16 10:09] LABS: BASO # 0.0 10^3/uL (0.0-0.2); BASO % 0.2 % (0.0-1.0); EOS # 0.0 10^3/uL (0.0-0.5); EOS % 0.3 % (0.0-3.0); LYMPH # 1.1 10^3/uL (1.5-5.0); LYMPH % 11.4 % (24.0-44.0); MONO # 0.7 10^3/uL (0.0-0.8); MONO % 7.5 % (2.0-8.0); NEUTROPHILS # 7.6 10^3/uL (1.5-8.5); NEUTROPHILS % 78.9 % (36.0-66.0); PLATELET COUNT, AUTOMATED 218 10^3/uL (150-450)
[2025-07-16 10:27] LABS: INR 1.08
[2025-07-16 10:44] LABS: ALT/SGPT 19.0 U/L (7.0-40); AST/SGOT 9.0 U/L (<34); C REACTIVE PROTEIN QUANTITATIV 1.45 MG/DL (<1.0); CALCIUM LEVEL 9.1 MG/DL (8.3-10.6); CARBON DIOXIDE LEVEL 23.0 MMOL/L (20-31); CHLORIDE LEVEL 112.0 MMOL/L (98-107); CREATININE FOR GFR 1.52 MG/DL (0.55-1.30); GLOMERULAR FILTRATION RATE 38.3 (>45); POTASSIUM SERUM 4.1 MMOL/L (3.5-5.1); SODIUM LEVEL 146.0 MMOL/L (136-145)
[2025-07-16] MEDS ORDERED: ISOVUE-370 76% 100 ML VIAL As Ordered ONE (15:34)
[2025-07-16] MEDS: ACETAMINOPHEN *IV* 1,000 MG in IV 1 EA IV ONE (15:35)
[2025-07-16 16:01] LABS: CK-MB VALUE MASS 1.0 NG/ML (<3.6)
[2025-07-16 16:03] LABS: CPK CREATINE PHOSPHOKINASE 38.0 U/L (34-145); MB/CK RELATIVE INDEX 2.63 (< OR =4)
[2025-07-16 20:18] LABS: CK-MB VALUE MASS < 1.0 NG/ML (<3.6)
[2025-07-16 20:21] LABS: CPK CREATINE PHOSPHOKINASE 29 U/L (34-145)
[2025-07-16 21:07] VITALS: BP 113/57; TEMP 96.9; O2SAT 100
== END 2025-07-16 21:13 | disposition home or self-care (01) ==
LOC: M ED 08:12
DX: R07.9 Chest pain, unspecified (principal); M79.662 Pain in left lower leg; R22.42 Localized swelling, mass and lump, left lower limb; K80.20 Calculus of gallbladder without cholecystitis without obstruction; J90 Pleural effusion, not elsewhere classified; D44.11 Neoplasm of uncertain behavior of right adrenal gland; E11.9 Type 2 diabetes mellitus without complications; I10 Essential (primary) hypertension; N18.4 Chronic kidney disease, stage 4 (severe); Z88.5 Allergy status to narcotic agent; Z86.711 Personal history of pulmonary embolism; Z79.02 Long term (current) use of antithrombotics/antiplatelets; Z79.4 Long term (current) use of insulin; Z79.899 Other long term (current) drug therapy
CPT/HCPCS: 71275; 80048; 80076; 82550; 82553; 83605; 83880; 84145; 84484; 85025; 85610; 85652; 85730; 86140; 93005; 93971; 96374; 99284; J0131; Q9967

== ENCOUNTER 2025-07-19 23:22 | Emergency (ER) | payer OTHER ==
[~2025-07-19] VITALS: Ht 170.2 cm; Wt 105.5 kg
[~2025-07-19 23:22] MED LIST changes: +BUPR-363 PO; -BUPR75TA5 PO
[2025-07-20] MEDS: ONDANSETRON 4MG/2ML VIAL IV ONE (05:03)
[2025-07-20] MEDS: HYDROMORPHONE HCL 0.5 MG/0.5 ML SYRINGE IV PRN (05:04)
[2025-07-20 05:06] LABS: BASO # 0.0 10^3/uL (0.0-0.2); BASO % 0.1 % (0.0-1.0); EOS # 0.0 10^3/uL (0.0-0.5); EOS % 0.1 % (0.0-3.0); LYMPH # 1.0 10^3/uL (1.5-5.0); LYMPH % 7.9 % (24.0-44.0); MONO # 0.7 10^3/uL (0.0-0.8); MONO % 6.0 % (2.0-8.0); NEUTROPHILS # 10.1 10^3/uL (1.5-8.5); NEUTROPHILS % 84.1 % (36.0-66.0); PLATELET COUNT, AUTOMATED 222 10^3/uL (150-450)
[2025-07-20 05:20] LABS: INR 1.11
[2025-07-20 06:09] LABS: CALCIUM LEVEL 9.1 MG/DL (8.3-10.6); CARBON DIOXIDE LEVEL 22.0 MMOL/L (20-31); CHLORIDE LEVEL 112.0 MMOL/L (98-107); CREATININE FOR GFR 1.74 MG/DL (0.55-1.30); GLOMERULAR FILTRATION RATE 32.6 (>45); POTASSIUM SERUM 5.0 MMOL/L (3.5-5.1); SODIUM LEVEL 144.0 MMOL/L (136-145)
[2025-07-20] MEDS ORDERED: ISOVUE-370 76% 100 ML VIAL As Ordered ONE (10:27)
[2025-07-20] MEDS: DEXTROSE 50% 50 ML SYRINGE IV STA (12:17)
[2025-07-20] MEDS ORDERED: MAALOX 30 ML SUSP *UDC PO PRN (17:10)
[2025-07-20] MEDS ORDERED: MOM 30 ML SUSPENSION UDC PO PRN (17:10)
[2025-07-20] MEDS ORDERED: ACETAMINOPHEN 325 MG TAB PO PRN (17:10)
[2025-07-20] MEDS ORDERED: MECLIZINE 25 MG TABLET PO PRN (17:10)
[2025-07-20] MEDS ORDERED: ENOX100I3 SC (17:15)
[2025-07-20] MEDS ORDERED: HOME MED LIST COMPLETE! XX SCH (17:15)
[2025-07-20] MEDS ORDERED: GLUCOSE 4 GM CHEW PO PRN (17:40)
[2025-07-20] MEDS ORDERED: DEXTROSE 50% 50 ML SYRINGE IV PRN (17:40)
[2025-07-20] MEDS ORDERED: GLUCAGON INJ 1 MG VIAL SC PRN (17:40)
[2025-07-20 18:02] VITALS: BP 122/54; TEMP 97.3; O2SAT 99
[2025-07-20] MEDS ORDERED: SUCR1TAB56 PO (18:03)
[2025-07-20 18:17] VITALS: BP 102/68; TEMP 97.6; O2SAT 99
[2025-07-20 18:56] VITALS: BP 124/66; TEMP 97; O2SAT 99
[2025-07-20] MEDS: DOCUSATE SODIUM 100 MG CAPSULE PO SCH (20:39)
[2025-07-20] MEDS: SUCRALFATE 1 GM TAB PO SCH (20:39)
[2025-07-20] MEDS: GABAPENTIN 100 MG CAP PO SCH (20:39)
[2025-07-20] MEDS: INSULIN LISPRO (NovoLOG) PER UNIT SC SCH (20:55)
[2025-07-20 22:09] VITALS: BP 142/67; TEMP 97; O2SAT 100
[2025-07-21] MEDS ORDERED: LEVOTHYROXINE 137 MCG TABLET (0.137 MG) PO SCH (06:00)
[2025-07-21] MEDS ORDERED: INSULIN LISPRO (NovoLOG) PER UNIT SC SCH (07:30)
[2025-07-21] MEDS ORDERED: PANTOPRAZOLE 40MG TAB PO SCH (09:00)
[2025-07-21] MEDS ORDERED: POTASSIUM CHLORIDE 10MEQ SR TABLET PO SCH (09:00)
[2025-07-21] MEDS ORDERED: ATORVASTATIN 20 MG TAB PO SCH (09:00)
[2025-07-21] MEDS ORDERED: LanTUS (INSULIN GLARGINE INJ) 1 UNITS/0.01 ML SC SCH (09:00)
[2025-07-21] MEDS ORDERED: LORATADINE 10 MG TAB PO SCH (09:00)
== END 2025-07-20 22:15 | disposition short-term general hospital (02) ==
LOC: M ED 23:22 → CANBEDREQ 07-20 16:34 → M ED 07-20 22:15
DX: K92.2 Gastrointestinal hemorrhage, unspecified (principal); C79.31 Secondary malignant neoplasm of brain; C64.2 Malignant neoplasm of left kidney, except renal pelvis; D64.9 Anemia, unspecified; D44.11 Neoplasm of uncertain behavior of right adrenal gland; K51.20 Ulcerative (chronic) proctitis without complications; M47.816 Spondylosis without myelopathy or radiculopathy, lumbar region; I12.9 Hypertensive chronic kidney disease with stage 1 through stage 4 chronic kidney disease, or unspecified chronic kidney disease; E11.9 Type 2 diabetes mellitus without complications; N18.4 Chronic kidney disease, stage 4 (severe); E03.9 Hypothyroidism, unspecified; Z86.711 Personal history of pulmonary embolism; Z88.5 Allergy status to narcotic agent; Z79.02 Long term (current) use of antithrombotics/antiplatelets; Z79.899 Other long term (current) drug therapy; Z79.4 Long term (current) use of insulin
CPT/HCPCS: 36430; 72131; 73552; 73590; 74174; 80048; 85014; 85018; 85025; 85610; 85730; 86850; 86900; 86901; 86920; 93971; 96374; 96375; 96376; 99285; J1171; J2405; P9016; Q9967

== ENCOUNTER 2025-08-11 19:14 | Inpatient (IN) | payer OTHER ==
[~2025-08-11] VITALS: Ht 170.2 cm; Wt 117.4 kg
[~2025-08-11 19:14] MED LIST changes: +ENOX100I3 SC
[2025-08-11 21:00] VITALS: BP 160/72; TEMP 98.3; O2SAT 99
[2025-08-11] MEDS: INSULIN LISPRO (NovoLOG) PER UNIT SC SCH (21:00)
[2025-08-11] MEDS ORDERED: DEXTROSE 50% 50 ML SYRINGE IV PRN (21:15)
[2025-08-11] MEDS ORDERED: GLUCAGON INJ 1 MG VIAL SC PRN (21:15)
[2025-08-11] MEDS ORDERED: GLUCOSE 4 GM CHEW PO PRN (21:15)
[2025-08-11 21:42] LABS: PLATELET COUNT, AUTOMATED 237 10^3/uL (150-450)
[2025-08-11] MEDS ORDERED: ASPE4PAD2 TOP (21:47)
[2025-08-11] MEDS ORDERED: HYDR-643 PO (21:47)
[2025-08-11] MEDS ORDERED: ACET-897 PO (21:47)
[2025-08-11] MEDS ORDERED: GLUC1AUT SQ (21:47)
[2025-08-11] MEDS ORDERED: ENOX40IN3 SC (21:47)
[2025-08-11] MEDS ORDERED: POLY1POW38 PO (21:50)
[2025-08-11] MEDS ORDERED: HOME MED LIST COMPLETE! XX SCH (21:55)
[2025-08-11 22:06] LABS: CALCIUM LEVEL 8.1 MG/DL (8.3-10.6); CARBON DIOXIDE LEVEL 30.0 MMOL/L (20-31); CHLORIDE LEVEL 105.0 MMOL/L (98-107); CREATININE FOR GFR 1.49 MG/DL (0.55-1.30); GLOMERULAR FILTRATION RATE 39.2 (>45); POTASSIUM SERUM 4.3 MMOL/L (3.5-5.1); SODIUM LEVEL 143.0 MMOL/L (136-145)
[2025-08-11] MEDS ORDERED: ACETAMINOPHEN 500 MG TAB PO PRN (22:40)
[2025-08-11] MEDS ORDERED: MECLIZINE 25 MG TABLET PO PRN (22:40)
[2025-08-12] MEDS: ENOXAPARIN 40 MG/0.4 ML SYRINGE (J1650 PER 10MG) SC SCH (00:04)
[2025-08-12] MEDS: GABAPENTIN 100 MG CAP PO SCH (00:04)
[2025-08-12 05:05] VITALS: BP 134/63; TEMP 98.4; O2SAT 98
[2025-08-12] MEDS: LEVOTHYROXINE 137 MCG TABLET (0.137 MG) PO SCH (06:23)
[2025-08-12 06:32] LABS: PLATELET COUNT, AUTOMATED 209 10^3/uL (150-450)
[2025-08-12 06:56] LABS: CALCIUM LEVEL 7.5 MG/DL (8.3-10.6); CARBON DIOXIDE LEVEL 28.0 MMOL/L (20-31); CHLORIDE LEVEL 104.0 MMOL/L (98-107); CREATININE FOR GFR 1.46 MG/DL (0.55-1.30); GLOMERULAR FILTRATION RATE 40.2 (>45); POTASSIUM SERUM 4.9 MMOL/L (3.5-5.1); SODIUM LEVEL 142.0 MMOL/L (136-145)
[2025-08-12] MEDS: MIRALAX *UNIT DOSE* 17 GM PACKET PO SCH (09:00)
[2025-08-12] MEDS: VITAMIN D 1,000 INTERNATIONAL UNITS TABLET PO SCH (09:35)
[2025-08-12] MEDS: INSULIN LISPRO (NovoLOG) PER UNIT SC SCH (09:35)
[2025-08-12] MEDS: ATORVASTATIN 20 MG TAB PO SCH (09:36)
[2025-08-12] MEDS: PANTOPRAZOLE 40MG TAB PO SCH (09:36)
[2025-08-12] MEDS: LORATADINE 10 MG TAB PO SCH (09:36)
[2025-08-12] MEDS: SUCRALFATE 1 GM TAB PO SCH (09:39)
[2025-08-12 12:00] VITALS: BP 109/71; TEMP 98.3; O2SAT 98
[2025-08-12] MEDS: CALCIUM CARBONATE 500 MG CHEW U/D PO SCH (17:04)
[2025-08-12] MEDS: LanTUS (INSULIN GLARGINE INJ) 1 UNITS/0.01 ML SC ONE (17:05)
[2025-08-12] MEDS: NYSTATIN 100,000 UNITS/GM TOPICAL PWD 15 GM TOP SCH (20:08)
[2025-08-13 04:58] VITALS: BP 138/64; TEMP 98.3; O2SAT 98
[2025-08-13] MEDS: INSULIN LISPRO (NovoLOG) PER UNIT SC SCH ×2 (07:30→17:21)
[2025-08-13] MEDS ORDERED: HumuLIN R (REGULAR) INSULIN (NovoLIN R) **100 U/ML** PER UNIT IV STA (07:41)
[2025-08-13 08:42] LABS: CALCIUM LEVEL 7.7 MG/DL (8.3-10.6); CARBON DIOXIDE LEVEL 27.0 MMOL/L (20-31); CHLORIDE LEVEL 105.0 MMOL/L (98-107); CREATININE FOR GFR 1.4 MG/DL (0.55-1.30); GLOMERULAR FILTRATION RATE 42.3 (>45); MAGNESIUM LEVEL 2.1 MG/DL (1.8-2.4); POTASSIUM SERUM 4.8 MMOL/L (3.5-5.1); SODIUM LEVEL 141.0 MMOL/L (136-145)
[2025-08-13] MEDS ORDERED: LanTUS (INSULIN GLARGINE INJ) 1 UNITS/0.01 ML SC SCH (09:00)
[2025-08-13] MEDS: HumuLIN R (REGULAR) INSULIN (NovoLIN R) **100 U/ML** PER UNIT SC STA (09:20)
[2025-08-13] MEDS: LanTUS (INSULIN GLARGINE INJ) 1 UNITS/0.01 ML SC SCH (10:19)
[2025-08-13] MEDS: OLOPATADINE 0.1% OPHTH SOL 5ML OU SCH (17:21)
[2025-08-13] MEDS ORDERED: ACETAMINOPHEN 325 MG TAB PO PRN (22:40)
[2025-08-14 04:33] VITALS: BP 154/70; TEMP 98.2; O2SAT 99
[2025-08-14 08:49] LABS: PLATELET COUNT, AUTOMATED 182 10^3/uL (150-450)
[2025-08-14 09:23] LABS: CALCIUM LEVEL 7.9 MG/DL (8.3-10.6); CARBON DIOXIDE LEVEL 28.0 MMOL/L (20-31); CHLORIDE LEVEL 102.0 MMOL/L (98-107); CREATININE FOR GFR 1.44 MG/DL (0.55-1.30); GLOMERULAR FILTRATION RATE 40.9 (>45); MAGNESIUM LEVEL 2.0 MG/DL (1.8-2.4); POTASSIUM SERUM 4.9 MMOL/L (3.5-5.1); SODIUM LEVEL 138.0 MMOL/L (136-145)
[2025-08-15 03:58] VITALS: BP 132/66; TEMP 98.3; O2SAT 99
[2025-08-15 06:54] LABS: CALCIUM LEVEL 8.1 MG/DL (8.3-10.6); CARBON DIOXIDE LEVEL 28.0 MMOL/L (20-31); CHLORIDE LEVEL 104.0 MMOL/L (98-107); CREATININE FOR GFR 1.39 MG/DL (0.55-1.30); GLOMERULAR FILTRATION RATE 42.6 (>45); MAGNESIUM LEVEL 2.0 MG/DL (1.8-2.4); POTASSIUM SERUM 5.1 MMOL/L (3.5-5.1); SODIUM LEVEL 140.0 MMOL/L (136-145)
[2025-08-15 21:02] VITALS: BP 135/63; TEMP 98; O2SAT 98
[2025-08-16 03:24] VITALS: BP 145/68; TEMP 97.2; O2SAT 94
[2025-08-16 06:44] LABS: CALCIUM LEVEL 8.0 MG/DL (8.3-10.6); CARBON DIOXIDE LEVEL 28.0 MMOL/L (20-31); CHLORIDE LEVEL 105.0 MMOL/L (98-107); CREATININE FOR GFR 1.35 MG/DL (0.55-1.30); GLOMERULAR FILTRATION RATE 44.2 (>45); MAGNESIUM LEVEL 2.0 MG/DL (1.8-2.4); POTASSIUM SERUM 5.2 MMOL/L (3.5-5.1); SODIUM LEVEL 141.0 MMOL/L (136-145)
[2025-08-16] MEDS: PERCOCET 5MG/325MG TAB PO PRN (18:47)
[2025-08-17 04:21] VITALS: BP 135/63; TEMP 98.3; O2SAT 98
[2025-08-17 04:30] VITALS: BP 109/62; TEMP 98; O2SAT 96
[2025-08-17 06:50] LABS: CALCIUM LEVEL 8.2 MG/DL (8.3-10.6); CARBON DIOXIDE LEVEL 27.0 MMOL/L (20-31); CHLORIDE LEVEL 103.0 MMOL/L (98-107); CREATININE FOR GFR 1.43 MG/DL (0.55-1.30); GLOMERULAR FILTRATION RATE 41.2 (>45); MAGNESIUM LEVEL 1.9 MG/DL (1.8-2.4); POTASSIUM SERUM 5.1 MMOL/L (3.5-5.1); SODIUM LEVEL 138.0 MMOL/L (136-145)
[2025-08-18 05:50] VITALS: BP 152/71; TEMP 98.4; O2SAT 98
[2025-08-18 06:59] LABS: CALCIUM LEVEL 8.1 MG/DL (8.3-10.6); CARBON DIOXIDE LEVEL 29.0 MMOL/L (20-31); CHLORIDE LEVEL 106.0 MMOL/L (98-107); CREATININE FOR GFR 1.42 MG/DL (0.55-1.30); GLOMERULAR FILTRATION RATE 41.6 (>45); MAGNESIUM LEVEL 1.9 MG/DL (1.8-2.4); POTASSIUM SERUM 4.9 MMOL/L (3.5-5.1); SODIUM LEVEL 143.0 MMOL/L (136-145)
[2025-08-18 20:44] VITALS: BP 151/68; TEMP 98.6; O2SAT 97
[2025-08-19 04:08] VITALS: BP 143/66; TEMP 97.2; O2SAT 99
[2025-08-19 07:17] LABS: CALCIUM LEVEL 8.3 MG/DL (8.3-10.6); CARBON DIOXIDE LEVEL 29.0 MMOL/L (20-31); CHLORIDE LEVEL 103.0 MMOL/L (98-107); CREATININE FOR GFR 1.36 MG/DL (0.55-1.30); GLOMERULAR FILTRATION RATE 43.8 (>45); MAGNESIUM LEVEL 1.9 MG/DL (1.8-2.4); POTASSIUM SERUM 4.9 MMOL/L (3.5-5.1); SODIUM LEVEL 140.0 MMOL/L (136-145)
[2025-08-19] MEDS: MIRALAX *UNIT DOSE* 17 GM PACKET PO SCH (09:00)
[2025-08-20 03:43] VITALS: BP 152/66; TEMP 98.3; O2SAT 99
[2025-08-20 07:19] LABS: CALCIUM LEVEL 8.4 MG/DL (8.3-10.6); CARBON DIOXIDE LEVEL 30.0 MMOL/L (20-31); CHLORIDE LEVEL 103.0 MMOL/L (98-107); CREATININE FOR GFR 1.41 MG/DL (0.55-1.30); GLOMERULAR FILTRATION RATE 41.9 (>45); MAGNESIUM LEVEL 1.9 MG/DL (1.8-2.4); POTASSIUM SERUM 4.9 MMOL/L (3.5-5.1); SODIUM LEVEL 140.0 MMOL/L (136-145)
[2025-08-21 06:34] VITALS: BP 137/79; TEMP 98.3; O2SAT 98
[2025-08-21 20:43] VITALS: BP 152/80; TEMP 98; O2SAT 100
[2025-08-22 05:50] VITALS: BP 146/66; TEMP 98.2; O2SAT 99
[2025-08-22] MEDS: DOCUSATE SODIUM 100 MG CAPSULE PO PRN (21:47)
[2025-08-23 03:38] VITALS: BP 147/61; TEMP 98; O2SAT 97
[2025-08-23] MEDS: ANUSOL HC 25 MG SUPP PR SCH (14:26)
[2025-08-23] MEDS: MIRALAX *UNIT DOSE* 17 GM PACKET PO SCH (20:43)
[2025-08-23] MEDS: SENNOSIDES/DOCUSATE SODIUM 8.6 MG/50MG TAB PO SCH (20:44)
[2025-08-23] MEDS: ANUSOL HC CREAM 30 GM TOP SCH (20:46)
[2025-08-24 04:31] VITALS: BP 156/71; TEMP 98; O2SAT 98
[2025-08-24 21:30] VITALS: BP 175/78; TEMP 98.4; O2SAT 98
[2025-08-25 06:30] VITALS: BP 163/76; TEMP 98.1; O2SAT 99
[2025-08-25] MEDS: PERCOCET 5MG/325MG TAB PO PRN (12:45)
[2025-08-26 04:45] VITALS: BP 164/64; TEMP 98.3; O2SAT 97
[2025-08-26 09:16] VITALS: BP 148/71
[2025-08-26] MEDS ORDERED: PERCOCET PO (13:01)
== END 2025-08-26 15:03 | disposition home health service (06) | DRG 861 ==
LOC: M MSPAV 19:14 → INTOOBSV 19:14 → OBSVTOIN 08-25 14:30
PROVIDERS: ADMIT Student in an Organized Health Care Education/Training Program; ATTEND Student in an Organized Health Care Education/Training Program
DX: R53.81 Other malaise (principal); C79.51 Secondary malignant neoplasm of bone; E11.22 Type 2 diabetes mellitus with diabetic chronic kidney disease; I26.99 Other pulmonary embolism without acute cor pulmonale; N18.4 Chronic kidney disease, stage 4 (severe); Z68.41 Body mass index [BMI] 40.0-44.9, adult; E11.40 Type 2 diabetes mellitus with diabetic neuropathy, unspecified; E03.9 Hypothyroidism, unspecified; G47.33 Obstructive sleep apnea (adult) (pediatric); I12.9 Hypertensive chronic kidney disease with stage 1 through stage 4 chronic kidney disease, or unspecified chronic kidney disease; Z86.711 Personal history of pulmonary embolism; M19.90 Unspecified osteoarthritis, unspecified site; Z90.5 Acquired absence of kidney; Z87.891 Personal history of nicotine dependence; C79.31 Secondary malignant neoplasm of brain; Z79.01 Long term (current) use of anticoagulants; Z79.899 Other long term (current) drug therapy; Z79.4 Long term (current) use of insulin; Z79.890 Hormone replacement therapy; Z88.5 Allergy status to narcotic agent; K64.8 Other hemorrhoids

== ENCOUNTER 2025-09-06 09:52 | Emergency (ER) | payer OTHER ==
[~2025-09-06] VITALS: Ht 170.2 cm; Wt 112.1 kg
[~2025-09-06 09:52] MED LIST changes: +ACET-897 PO; +ASPE4PAD2 TOP; +GLUC1AUT SQ; +PERCOCET PO; +POLY1POW38 PO
[2025-09-06] MEDS: LIDOCAINE 2% 5 ML JELLY UROJET TOP ONE (10:44)
[2025-09-06 10:56] LABS: KETONE, URINE AUTO RFX NEGATIVE (NEGATIVE); LEUKOCYTE ESTERASE UR AUTO RFX NEGATIVE (NEGATIVE); MUCUS, URINE RFX SMALL (NEGATIVE); NITRITE, URINE AUTO RFX NEGATIVE (NEGATIVE); RBC, URINE AUTO RFX 2 /HPF (0-3); SQUAM EPITHELIAL CELL UR AURFX 1 /HPF (0-6); WBC, URINE AUTO RFX 2 /HPF (0-3)
[2025-09-06 11:30] LABS: BASO # 0.0 10^3/uL (0.0-0.2); BASO % 0.5 % (0.0-1.0); EOS # 0.0 10^3/uL (0.0-0.5); EOS % 0.3 % (0.0-3.0); LYMPH # 0.5 10^3/uL (1.5-5.0); LYMPH % 7.9 % (24.0-44.0); MONO # 0.4 10^3/uL (0.0-0.8); MONO % 6.0 % (2.0-8.0); NEUTROPHILS # 5.3 10^3/uL (1.5-8.5); NEUTROPHILS % 83.9 % (36.0-66.0); PLATELET COUNT, AUTOMATED 239 10^3/uL (150-450)
[2025-09-06 12:01] LABS: CALCIUM LEVEL 8.5 MG/DL (8.3-10.6); CARBON DIOXIDE LEVEL 26.0 MMOL/L (20-31); CHLORIDE LEVEL 105.0 MMOL/L (98-107); CREATININE FOR GFR 1.36 MG/DL (0.55-1.30); GLOMERULAR FILTRATION RATE 43.8 (>45); POTASSIUM SERUM 5.3 MMOL/L (3.5-5.1); SODIUM LEVEL 139.0 MMOL/L (136-145)
[2025-09-06 16:00] VITALS: BP 109/55; TEMP 98
[2025-09-06 16:07] VITALS: O2SAT 100
== END 2025-09-06 16:43 | disposition home or self-care (01) ==
LOC: M ED 09:52
DX: S81.811A Laceration without foreign body, right lower leg, initial encounter (principal); E11.65 Type 2 diabetes mellitus with hyperglycemia; W06.XXXA Fall from bed, initial encounter; C64.9 Malignant neoplasm of unspecified kidney, except renal pelvis; I10 Essential (primary) hypertension; C79.31 Secondary malignant neoplasm of brain; E66.01 Morbid (severe) obesity due to excess calories; G47.33 Obstructive sleep apnea (adult) (pediatric); E03.9 Hypothyroidism, unspecified; N18.4 Chronic kidney disease, stage 4 (severe); M16.0 Bilateral primary osteoarthritis of hip; Z79.1 Long term (current) use of non-steroidal anti-inflammatories (NSAID); Z79.899 Other long term (current) drug therapy; Z79.02 Long term (current) use of antithrombotics/antiplatelets; Z79.4 Long term (current) use of insulin; Z88.5 Allergy status to narcotic agent; Z86.711 Personal history of pulmonary embolism; Y99.9 Unspecified external cause status; Y92.003 Bedroom of unspecified non-institutional (private) residence as the place of occurrence of the external cause; Y93.89 Activity, other specified